=== PATIENT | male | born 1950 | race Caucasian/White ===

== ENCOUNTER 2020-09-27 12:00 | Outpatient (CLI) | payer MEDICARE, OTHER, SELFPAY ==
[2020-09-27 12:19] LABS: Basophils Percent Auto 0.6 % (0.2-1.2); Eosinophils Absolute Auto 0.2 K/mm3 (0-0.3); Eosinophils Percent Auto 3.1 % (0-4.4); Hematocrit 41.9 % (42.0-52.0); Hemoglobin 14.6 g/dL (14.0-18.0); Immature Granulocyte Absolute 0.01 K/mm3 (0.00-0.031); Immature Granulocyte Percent A 0.1 % (0-0.5); Lymphocytes Absolute Auto 2.06 K/mm3 (0.9-3.2); Lymphocytes Percent Auto 28.7 % (18.3-44.2); Mean Corpuscular HGB Conc 34.8 g/dl (32-36); Mean Corpuscular Hemoglobin 29.2 pg (26-34); Mean Corpuscular Volume 83.8 fl (80-100); Mean Platelet Volume 9.1 fl (7.4-10.4); Monocytes Absolute Auto 0.9 K/mm3 (0.1-0.6); Monocytes Percent Auto 12.2 % (2.6-8.5); Neutrophils Percent Auto 55.3 % (45.5-73.1); Platelet Count Result 218 k/mm3 (150-375); Red Cell Distribution Width 12.9 % (11.5-14.5); White Blood Count 7.2 K/mm3 (4.5-10.0)
[2020-09-27 13:08] LABS: Alanine Aminotransferase 28 U/L (4-50); Albumin Level 4.2 g/dL (3.5-5.1); Alkaline Phosphatase 97 U/L (38-126); Anion Gap 6 mmol/L (8-16); Aspartate Amino Transferase 31 U/L (17-59); Bilirubin,Total 0.6 mg/dL (0.2-1.3); Blood Urea Nitrogen 26 mg/dL (9-20); Calcium 9.5 mg/dL (8.4-10.2); Carbon Dioxide 26 mmol/L (22-30); Chloride 106 mmol/L (98-107); Estimated Glomerular Filt Rate 50; Glucose 185 mg/dL (75-110); Potassium 4.4 mmol/L (3.4-5.0); Sodium 138 mmol/L (137-145)
[2020-09-27 13:10] LABS: Immunoglobulin A 138 mg/dL (70-400); Immunoglobulin G 1238 mg/dL (700-1600); Immunoglobulin M 55 mg/dL (40-230)
[2020-09-29 12:57] LABS: Kappa\\Lambda Light Chains 1.24 (0.26-1.65); Lambda Light Chain 27.2 mg/L (5.7-26.3)
[2020-10-01 05:54] LABS: Albumin 4.1 g/dL (3.8-4.8); Alpha 1 Globulin 0.3 g/dL (0.2-0.3); Alpha 2 Globulin 0.8 g/dL (0.5-0.9); Beta 1 Globulin 0.5 g/dL (0.4-0.6); Gamma Globulin 1.1 g/dL (0.8-1.7); Protein, Total 7.2 g/dL (6.1-8.1)
[2020-10-03 11:09] LABS: Serotonin 1802 ng/mL (56-244)
== END 2020-09-27 12:01 | disposition home or self-care (01) ==
LOC: ANHLAB 12:03
PROVIDERS: PCP Nurse Practitioner Adult Health; Visit Provider Internal Medicine Hematology & Oncology
DX: C7B.00 Secondary carcinoid tumors, unspecified site (principal)
CPT/HCPCS: 36415; 80053; 82784; 83883; 84155; 84165; 84260; 85025

== ENCOUNTER 2020-09-30 13:15 | Outpatient (CLI) | payer MEDICARE, OTHER, SELFPAY ==
--- NOTE | ~2020-09-30 | CT_ITS ---
EXAMINATION: CT abdomen pelvis w con DATE: 09/30/2020 13:41 INDICATION: Metastatic carcinoid tumor TECHNIQUE: Computed tomography (CT) of the abdomen and pelvis was performed with 100 mL Omnipaque-350 intravenous contrast. Automated exposure control and iterative reconstruction technique were employe d. The dose-length product was 1320.38 mGy-cm. COMPARISON: None FINDINGS: A few small calcified nodules in the right middle lobe and calcified mediastinal lymph node consisten t with old granulomatous disease. Heart size is normal. No pericardial or pleural effusion. Atheroscl erotic coronary artery calcifications. A few calcified gallstones in the dependent aspect of the norm al gallbladder with no wall thickening or pericholecystic inflammatory change to suggest acute cholec ystitis. Liver is normal. No intra or extra hepatic biliary ductal dilation. Pancreas, spleen and rig ht adrenal gland are normal. 2.1 x 1.1 cm macroscopic fat attenuation left adrenal myelolipoma. Mild bilateral renal atrophy with 7 mm low-attenuation likely cyst at the lower pole of the left kidney. H eterogeneously enhancing mass with lobular margins and multiple internal calcifications within the me sentery of the right abdomen which measures 9.0 x 5.0 x 6.9 cm on coronal and sagittal images. There are 3 additional mildly enlarged ovoid nodules along the more proximal mesentery which from caudal to cranial on axial images measure 16 x 11 mm, 16 x 12 mm and 16 x 13 mm. Each of these along with the large mass are consistent with given history of metastatic carcinoid tumor. There is suggestion of fo daniel enhancement along a short segment of small bowel in the right abdomen potentially representing th e primary carcinoid. This is located on series 3, image 93 and Remainder of the bowels including appe ndix are normal. No obstruction. Bladder is normal. No free intraperitoneal gas or fluid. Moderate-si zed fat-containing left inguinal hernia. Chronic appearing mild anterior wedging of a few mid to lowe r thoracic vertebrae. Moderate thoracolumbar spondylosis with bridging osteophytes at multiple levels consistent with diffuse idiopathic skeletal hyperostosis (DISH). No suspicious lytic or blastic bone lesions. IMPRESSION: 1. 9.0 x 5.0 x 6.9 cm enhancing mesenteric mass with 3 nearby smaller mesenteric nodules, all consist ent with given history of metastatic carcinoid tumor. 2. Possible site of a small primary enhancing carcinoid tumor identified along a segment of small bow el in the right abdomen still a significant distance from the terminal ileum. 3. Cholelithiasis. Hindfoot. Moderate-sized left inguinal hernia. Reviewed, dictated and finalized at location A. SUPERVISOR IMPRESSION: 1. 9.0 x 5.0 x 6.9 cm enhancing mesenteric mass with 3 nearby smaller mesenteri c nodules, all consistent with given history of metastatic carcinoid tumor. 2. Possible site of a small primary enhancing carcinoid tumor identified along a segment of small bowel in the right abdomen still a significant distance from the terminal ileum. 3. Cholelithiasis. Hindfoot. Moderate-sized left inguinal hernia.
== END 2020-09-30 13:16 | disposition home or self-care (01) ==
PROVIDERS: PCP Nurse Practitioner Adult Health; Visit Provider Internal Medicine Hematology & Oncology
DX: C7B.00 Secondary carcinoid tumors, unspecified site (principal); K80.20 Calculus of gallbladder without cholecystitis without obstruction
CPT/HCPCS: 74177; Q9967

== ENCOUNTER → 2020-10-15 00:45 | Outpatient (CLI) | payer MEDICARE, OTHER, SELFPAY ==
[2020-10-15 20:38] LABS: SARS-CoV-2 RNA PCR Negative
== END ==
PROVIDERS: PCP Nurse Practitioner Adult Health; Visit Provider Internal Medicine Hematology & Oncology
DX: Z01.812 Encounter for preprocedural laboratory examination (principal); Z20.822 Contact with and (suspected) exposure to COVID-19
CPT/HCPCS: C9803; U0003; U0005

== ENCOUNTER 2020-10-18 09:00 | Outpatient (CLI) | payer MEDICARE, OTHER, SELFPAY ==
[2020-10-13 16:44] VITALS: BMI 33.1
[2020-10-18] VITALS (7 sets, daily range): BP systolic 154–168; BP diastolic 80–97; PULSE 55–68; RESP 16–19; O2SAT 98–100
--- NOTE | ~2020-10-18 | CT_ITS ---
EXAMINATION: CT bx abdomen percutaneous DATE: 10/18/2020 11:39 INDICATION: Mesenteric mass. TECHNIQUE: The procedure including the risks, benefits, and alternatives was discussed with the patie nt. Risks discussed included bleeding and infection. The patient verbalized understanding of the risk s and agreed to proceed. The skin overlying the right abdomen was prepped and draped in usual steril e fashion. Anesthetic was administered with 1% lidocaine subcutaneously. A 16 gauge outer needle wa s advanced under CT guidance into the mesenteric mass. An 18 gauge core biopsy needle was then used t o obtain 3 core biopsy specimens. The mA was adjusted according to patient size. Iterative reconstruc tion technique was employed. The dose-length product was 136.33 mGy-cm. The needle was removed and th e entry site was cleaned and dressed. There were no immediate complications. FINDINGS: CT images demonstrate the outer needle tip in an 8.2 cm mesenteric mass. IMPRESSION: 1. CT-guided core needle biopsy of a mesenteric mass. Reviewed, dictated and finalized at location A. EILLANCE ANALYST
[2020-10-18 09:57] LABS: INR 0.9; Prothrombin Time 13.1 Seconds (11.1-14.7)
[2020-10-18 13:11] LABS: Glucose Point of Care 93 (65-105)
--- NOTE | 2020-10-18 13:48 | SUR.PHASEII ---
[address] arreaga on pt condition. pt is stable, vss, on roomair, no pain. ok to be discharged per dr arreaga
== END 2020-10-18 09:01 | disposition home or self-care (01) ==
PROVIDERS: Radiology Diagnostic Radiology; PCP Nurse Practitioner Adult Health; Visit Provider Internal Medicine Hematology & Oncology
DX: C7B.00 Secondary carcinoid tumors, unspecified site (principal); Z51.81 Encounter for therapeutic drug level monitoring; Z79.899 Other long term (current) drug therapy
CPT/HCPCS: 36415; 49180; 82948; 85610; 88305; 88342

== ENCOUNTER 2021-04-10 09:00 | Outpatient (CLI) | payer MEDICARE, OTHER, SELFPAY ==
--- NOTE | ~2021-04-10 | CT_ITS ---
EXAMINATION: CT abdomen pelvis w con INDICATION: Metastatic carcinoid tumor TECHNIQUE: Computed tomographic images of the abdomen and pelvis were obtained after the administrati on of 100 cc of Omnipaque 350 intravenous contrast. The dose-length product (DLP) was 1603.22 mGy-cm. Automated exposure control and iterative reconstruction technique were employed. COMPARISON: 09/30/2020 FINDINGS: Minimal dependent atelectasis is present in the lung bases. The heart size is normal. The l iver, spleen, pancreas, and right adrenal gland are normal. There is a stable myelolipoma of the left adrenal gland. Stones are present in the gallbladder which is mildly distended. There is mild atroph y of the kidneys. A 7 mm hypoattenuating lesion in the left kidney lower pole is too small to charact erize but likely represents a cyst. A 6.8 x 6.7 cm heterogeneous mass of the mesentery has decreased in size, previously measuring 9.0 x 6.9 cm. The three smaller adjacent masses of the mesentery are st able in size. There appears to be a 1.8 x 1.7 cm mass in the second portion of the duodenum on image 73. The mass appears to insinuate along the wall of the duodenum and cause narrowing of the distal co mmon bile duct. There is mild enlargement of the common bile duct which measures up to 10 mm. The rayray endix is normal. There are no dilated loops of bowel. No free intraperitoneal gas is identified. Ther e is moderate lumbar spondylosis. IMPRESSION: 1. Mesenteric mass with slight decrease in size and three stable adjacent masses, consistent with met astatic carcinoid. 2. Small mass in the second portion the duodenum which appears to involve the distal common bile duct resulting in mild enlargement of the common bile duct and likely secondary enlargement of the gallbl adder. Upper endoscopy is recommended. Reviewed, dictated and finalized at location A. IMPRESSION: 1. Mesenteric mass with slight decrease in size and three stable adjacent amado s, consistent with metastatic carcinoid. 2. Small mass in the second portion the duodenum which appears to involve the d istal common bile duct resulting in mild enlargement of the common bile duct an d likely secondary enlargement of the gallbladder. Upper endoscopy is recommend ed.
[2021-04-10 09:27] LABS: Estimated Glomerular Filt Rate 37
== END 2021-04-10 09:01 | disposition home or self-care (01) ==
PROVIDERS: PCP Nurse Practitioner Adult Health; Visit Provider Internal Medicine Hematology & Oncology
DX: C78.00 Secondary malignant neoplasm of unspecified lung (principal); R19.09 Other intra-abdominal and pelvic swelling, mass and lump
CPT/HCPCS: 74177; Q9967

== ENCOUNTER 2021-04-19 06:49 | Day surgery (SDC) | payer MEDICARE, OTHER, SELFPAY ==
[2021-04-13 11:12] VITALS: BMI 31.4
[2021-04-19 07:52] VITALS: BP 151/80; PULSE 59; RESP 16; TEMP 36.3; O2SAT 99; BMI 32.1
[2021-04-19] MEDS: LACTATED RINGERS 1,000 ML 150 ML IV CONT (08:05)
[2021-04-19 08:15] LABS: Glucose Point of Care 144 mg/dl (65-105)
--- NOTE | 2021-04-19 08:18 | WPDANESEPPF ---
Anes - Initial Pre Proc Eval Procedure: Operation Date: 04/19/21 08:45 Proposed Procedures p Esophagogastroduodenoscopy - Vin Burnett MD Date/Time: 04/19/21 08:18 Surgeon: Vin Burnett MD Pre Op Diagnosis: duodenal mass Patient Data Age: 70 Gender: M Height: 1.83 m Weight: 107.3 kg Last Vital Signs Temp 36.3 C L 04/19/21 07:52 Pulse 59 L 04/19/21 07:52 Resp 16 04/19/21 07:52 BP 151/80 H 04/19/21 07:52 Pulse Ox 99 04/19/21 07:52 Allergies Allergy/AdvReac Type Severity Reaction Status Date / Time No Known Allergies Allergy Mild Verified 04/19/21 07:50 Home Medications Medication Instructions Recorded Confirmed Type atorvastatin 10 mg PO HS 10/13/20 04/13/21 History cholecalciferol (vitamin D3) 50 mcg PO DAILY 10/13/20 04/13/21 History [Vitamin D3] coenzyme Q10 [CoQ-10] 30 mg PO DAILY 10/13/20 04/13/21 History cranberry 500 mg PO BID 10/13/20 04/13/21 History diltiazem HCl 240 mg PO DAILY 10/13/20 04/13/21 History glimepiride 2 mg PO DAILY 10/13/20 04/13/21 History wmtxx-rdphcg-cbi-W2-D-MQ-hb287 1 tablet PO DAILY 10/13/20 04/13/21 History insulin degludec [Tresiba 16 unit SUBCUT DAILY 10/13/20 04/13/21 History FlexTouch U-100] latanoprost 1 drp EACH EYE DAILY 10/13/20 04/13/21 History liraglutide [Victoza 2-Chance] 1.2 mg SUBCUT DAILY 10/13/20 04/13/21 History losartan 100 mg PO DAILY 10/13/20 04/13/21 History omega 4-ebi-umk-fish oil [Fish Oil] 1 cap PO DAILY 10/13/20 04/13/21 History vitamin I31-caehy acid 1 tablet PO DAILY 10/13/20 04/13/21 History dapagliflozin [Farxiga] 10 mg PO DAILY 02/10/21 04/13/21 History Laboratory Tests 04/19/21 08:10 POC Capillary Glucose 144 mg/dl H mg/dl (65-105) Patient hx anesthesia problems: none Family hx anesthesia problems: none PMFSH Past Medical History Medical History Diabetes Hypercholesterolemia Obesity Family History Family History Other Diabetes mellitus Family history of cardiovascular disease Hypertension Social History Social History Smoking status: Never smoker Alcohol intake: never Substance use: never Living arrangements: with family Spiritual care concerns: No Anes - Eval Final PreProcedure Day of Procedure 04/19/21 08:18 Patient weight: obese Heart: regular rate and rhythm Lungs: clear to auscultation Airway: Mallampati scale class II Neurological: alert and oriented Last oral intake: >/= 8 hours ASA classification: III Emergent: no Anesthetic plan: proceed Anesthesia type and monitoring: general GIVS and standard monitoring Informed Consent: The patient's anesthetic plan and its attendant risks and benefits were discussed with the patient/family/POA. Questions were solicited and answers provided to the satisfaction of the patient/family/POA.
--- NOTE | 2021-04-19 08:43 | WPDGICN ---
Assessment and Plan Assessment and plan (1) Neuroendocrine cancer: Code(s): C7A.8 - Other malignant neuroendocrine tumors Status: Acute Assessment and Plan: Patient has a neuroendocrine tumor currently followed by Dr. Marr, and Carline Lu NP. patient had a CT scan suggesting possible duodenal involvement. An EGD and biopsy is suggested at this time. Further recommendations will be given after endoscopy. (2) Abnormal CT scan: Code(s): R93.89 - Abnormal findings on diagnostic imaging of other specified body structures Status: Acute GI Consult Note Consult date/time: 04/19/21 08:43 HPI: Manuel Mata is a 70 year old male Presents for EGD because of abnormal CT scan. Patient reports that 1 year ago had abdominal pain for this reason a CT scan was performed he ultimately was found to have a neuroendocrine tumor surrounding the small intestine. This felt to be a carcinoid type tumor. Patient eventually seen by Dr. Marr over the last 2 months. He is also being evaluated for potential surgery but this apparently is limited because of proximity to major blood vessels. Follow-up CT scan recently performed raise the question of a duodenal lesion the GB is requested for biopsy and further investigation. Patient otherwise states he feels good with no specific symptoms his diet appetite bowel movements all appeared good. He denies abdominal pain. Patient reports screening colonoscopy in August was unremarkable. Performed elsewhere. Review of Systems Review of Systems: All systems reviewed & are unremarkable except as noted in HPI and below PMFSH Past Medical History Medical History Diabetes Hypercholesterolemia Obesity Family History Family History Other Diabetes mellitus Family history of cardiovascular disease Hypertension Social History Social History Smoking status: Never smoker Alcohol intake: never Substance use: never Living arrangements: with family Spiritual care concerns: No Meds Home Medications and Allergies Home Medications Medication Instructions Recorded Confirmed Type atorvastatin 10 mg PO HS 10/13/20 04/13/21 History cholecalciferol (vitamin D3) 50 mcg PO DAILY 10/13/20 04/13/21 History [Vitamin D3] coenzyme Q10 [CoQ-10] 30 mg PO DAILY 10/13/20 04/13/21 History cranberry 500 mg PO BID 10/13/20 04/13/21 History diltiazem HCl 240 mg PO DAILY 10/13/20 04/13/21 History glimepiride 2 mg PO DAILY 10/13/20 04/13/21 History sorwt-ueuxfc-rpw-S2-G-JT-hb287 1 tablet PO DAILY 10/13/20 04/13/21 History insulin degludec [Tresiba 16 unit SUBCUT DAILY 10/13/20 04/13/21 History FlexTouch U-100] latanoprost 1 drp EACH EYE DAILY 10/13/20 04/13/21 History liraglutide [Victoza 2-Chance] 1.2 mg SUBCUT DAILY 10/13/20 04/13/21 History losartan 100 mg PO DAILY 10/13/20 04/13/21 History omega 5-djv-zyh-fish oil [Fish Oil] 1 cap PO DAILY 10/13/20 04/13/21 History vitamin O27-gcthq acid 1 tablet PO DAILY 10/13/20 04/13/21 History dapagliflozin [Farxiga] 10 mg PO DAILY 02/10/21 04/13/21 History Allergies Allergy/AdvReac Type Severity Reaction Status Date / Time No Known Allergies Allergy Mild Verified 04/19/21 07:50 Vital Signs Vital Signs - 24 hr 04/19/21 07:52 Temperature 97.3 F L Pulse Rate 59 L Respiratory Rate 16 Blood Pressure 151/80 H Pulse Oximetry 99 Exam Narrative: physical exam reveals patient to be alert. Vital signs stable. HEENT exam is unremarkable. Patient is anicteric. Lungs are clear to auscultation and percussion. Heart is without murmur or extra sounds. Abdominal exam bowel sounds are present soft nontender with no organomegaly. Digital external rectal exam unremarkable today.
[2021-04-19 09:10] VITALS: BP 141/76; PULSE 56; RESP 21; O2SAT 99
[2021-04-19 09:20] VITALS: BP 136/84; PULSE 54; RESP 21; O2SAT 97
[2021-04-19 09:27] LABS: Glucose Point of Care 139 mg/dl (65-105)
[2021-04-19 09:30] VITALS: BP 151/89; PULSE 57; RESP 21; O2SAT 97
== END 2021-04-19 09:40 | disposition home or self-care (01) ==
PROVIDERS: PCP Nurse Practitioner Adult Health; Visit Provider Internal Medicine Gastroenterology
PROC: 0DJ08ZZ Inspection of Upper Intestinal Tract, Via Natural or Artificial Opening Endoscopic (ICD-10-PCS; CPT 43235; principal; 2021-04-19 08:45)
DX: K57.10 Diverticulosis of small intestine without perforation or abscess without bleeding (principal); C7A.8 Other malignant neuroendocrine tumors; E11.9 Type 2 diabetes mellitus without complications; E78.00 Pure hypercholesterolemia, unspecified; E66.9 Obesity, unspecified; Z68.32 Body mass index [BMI] 32.0-32.9, adult; Z79.84 Long term (current) use of oral hypoglycemic drugs; Z79.4 Long term (current) use of insulin
CPT/HCPCS: 43235; 82948; J7120

== ENCOUNTER 2023-09-10 08:19 | Outpatient (CLI) | payer MEDICARE, SELFPAY ==
[2023-09-10 08:48] LABS: Estimated Glomerular Filt Rate 28
== END 2023-09-10 08:20 | disposition home or self-care (01) ==
LOC: ANHIMG 08:24
PROVIDERS: PCP Family Medicine; Visit Provider Internal Medicine Hematology & Oncology
DX: C7B.00 Secondary carcinoid tumors, unspecified site (principal)
CPT/HCPCS: 99199

== ENCOUNTER 2024-01-09 13:32 | Outpatient (CLI) | payer MEDICARE, SELFPAY ==
--- NOTE | ~2024-01-09 | US_ITS ---
EXAMINATION: US renal BI DATE: 01/09/2024 13:52 INDICATION: Stage IIIa chronic kidney disease TECHNIQUE: Multiple ultrasound grayscale images of the kidneys were obtained. COMPARISON: None. FINDINGS: The right kidney measures 10.7 x 5.8 x 5.4 cm. The left kidney measures 4.2 x 5.6 x 5.8 cm. The kidne ys demonstrate normal echogenicity. 9 mm anechoic cyst at the lower pole the left kidney. There is no hydronephrosis in either kidney. No stones identified. The bladder is normal. IMPRESSION: 1. 9 mm cyst at the lower pole the left kidney. Otherwise normal kidneys without hydronephrosis. Reviewed, dictated and finalized at location A. IMPRESSION: 1. 9 mm cyst at the lower pole the left kidney. Otherwise normal kidneys witho ut hydronephrosis.
== END 2024-01-09 13:33 ==
LOC: MICIMG 13:33
PROVIDERS: PCP Internal Medicine Nephrology; Visit Provider Internal Medicine Nephrology
DX: N18.31 Chronic kidney disease, stage 3a (principal); N28.1 Cyst of kidney, acquired
CPT/HCPCS: 76775

== ENCOUNTER 2024-12-31 11:03 | Outpatient (CLI) | payer MEDICARE, SELFPAY ==
[2024-12-31 11:17] LABS: Basophils Percent Auto 0.4 % (0.2-1.2); Eosinophils Absolute Auto 0.1 K/mm3 (0-0.3); Eosinophils Percent Auto 0.9 % (0-4.4); Hematocrit 39.8 % (42.0-52.0); Hemoglobin 13.7 g/dL (14.0-18.0); Immature Granulocyte Absolute 0.01 K/mm3 (0.00-0.031); Immature Granulocyte Percent A 0.2 % (0-0.5); Lymphocytes Absolute Auto 1.64 K/mm3 (0.9-3.2); Lymphocytes Percent Auto 29.7 % (18.3-44.2); Mean Corpuscular HGB Conc 34.4 g/dl (32-36); Mean Corpuscular Hemoglobin 30.5 pg (26-34); Mean Corpuscular Volume 88.6 fl (80-100); Mean Platelet Volume 8.6 fl (7.4-10.4); Monocytes Absolute Auto 0.7 K/mm3 (0.1-0.6); Monocytes Percent Auto 11.8 % (2.6-8.5); Neutrophils Absolute Auto 3.2 K/mm3 (1.3-6.7); Platelet Count Result 158 k/mm3 (150-375); Red Blood Count 4.49 M/mm3 (4.6-6.20); Red Cell Distribution Width 13.2 % (11.5-14.5); White Blood Count 5.5 K/mm3 (4.5-10.0)
[2024-12-31 12:01] LABS: Alanine Aminotransferase 27 U/L (6-50); Albumin Level 4.2 g/dL (3.5-5.1); Alkaline Phosphatase 92 U/L (38-126); Anion Gap 8 mmol/L (4-12); Aspartate Amino Transferase 40 U/L (17-59); Bilirubin,Total 1.1 mg/dL (0.2-1.3); Blood Urea Nitrogen 32 mg/dL (9-20); Calcium 9.2 mg/dL (8.4-10.2); Carbon Dioxide 25 mmol/L (22-30); Chloride 107 mmol/L (98-107); Estimated Glomerular Filt Rate 34; Glucose 165 mg/dL (65-110); Potassium 4.9 mmol/L (3.4-5.0); Sodium 140 mmol/L (137-145)
--- OUTSIDE RECORDS SUMMARY | 2024-12-31 12:36 | XMS_ITS | Encounter Summary ---
Author Organization [facility] Address [address] [place] [phone] Phone Care Team Providers Care Asbestos Remover Name Role Phone Carline Lu NP Primary Care Provider [phone] Reason for Visit * Reason Comments Med Refill Encounter Details Date Type Department Care Team (Late st Contact Info) Description 04/16/2022 Refill [facility] Nephrology and Hypertension [address] [place] [address], [address] [place] [address] Luis Kaminski MD [address] [facility], [address] [place] [address] Social History Tobacco Use Types Packs/Day Years Used Date Smoking Tobacco: Never Smokeless Tobacco: Never Alcohol Use Standard Drinks/Week Comments No 0 (1 standard drink = 0.6 oz pur e alcohol) Sex and Gender Information Value Date Recorded Sex Assigned at Not on file Legal Sex Male 7:21 AM [facility] Gender Identity Not on file Sexual Orientation Not on file documented as of this encounter Plan of Treatment Not on file documented as of this encounter Visit Diagnoses Not on filedocumented in this encounter Care Teams Asbestos Remover Relationship Specialty Start Date End Date Carline Lu NP [facility] [place] [phone] PCP - General Internal Medicine 05/25/19 documented as of this encounter
--- OUTSIDE RECORDS SUMMARY | 2024-12-31 12:36 | XMS_ITS | Encounter Summary ---
Author Organization [facility] Address [address] [place] [address] Care Team Providers Care Golf Ball Trimmer Name Role Phone Rosa Chávez MD Primary Care Provider + Encounter Details Date Type Department Care Team (Late st Contact Info) Description 01/01/2000 Outpatient Historical [facility] Zeus Saha MD [address] [place] [phone] Social History Tobacco Use Types Packs/Day Years Used Date Smoking Tobacco: Never Assessed Sex and Gender Information Value Date Recorded Sex Assigned at Not on file Legal Sex Male 3:07 AM [employer] WORK[employer] CL[employer] Gender Identity Not on file Sexual Orientation Not on file documented as of this encounter Plan of Treatment Upcoming Encounters Date Type Department Care Team (Late st Contact Info) Description 01/11/2025 8:40 AM CDT Appointment [facility] Imaging Services [facility] [address] [place] [address] Ros Sapp PA-C [address] [address] 01/12/2025 9:30 AM CDT Office Visit [facility] Surgical Specialists Zeus Ibrahim [facility] [address] [facility] [address] [place] [address] Ros Sapp PA-C [address] [facility] [address] [place] [address] 01/13/2025 11:15 AM CDT Office Visit [facility] Oncology and Hematology [facility] [address] [facility] [address] [place] [address] Blayne Marr MD [address] [facility] [address] [place] [address] documented as of this encounter Visit Diagnoses Not on filedocumented in this encounter Care Teams Golf Ball Trimmer Relationship Specialty Start Date End Date Rosa Chávez MD [address] [place] [address] [place] [address] PCP - General Family Practice 03/08/23 11/01/24 documented as of this encounter
--- OUTSIDE RECORDS SUMMARY | 2024-12-31 12:36 | XMS_ITS | Continuity of Care Document ---
Author Name [facility] Organization [facility] Care Team Providers Care Power Shovel Operator Helper Name Role Phone [facility] Unavailable Unavailable Problems Combined list of problems from [facility] and [facility] facilities. It does not include entries that were removed or entered in error. Problem Status Onset Date Problem Type Date of Resolution Comments Source Benign hypertension Active Condition [facility] Cataract Active Condition [facility] Diabetes mellitus Active Condition [facility] Hyperlipidemia Active Condition [facility] Medications Combined list of outpatient medications from [facility] and [facility] facilities.Medications provided include 1) outpatient medications from the last 15 months, and 2) patient-reported medications. Medication Details Route Status Patient Instructions Prescription Expires Prescription Number Last Dispense Date Ordering Provider Order Date Order Qty Source BRIMONIDINE TARTRATE 0.15% SOLN,OPH INSTILL 1 DROP IN BOTH EYES TWICE A DAY [facility]PHTHA [facility] CHONDROITIN SULFATE CAP/TAB TAKE 1 CAP/TAB BY MOUTH TWICE A DAY ORAL [facility]IVE [facility] I B 2013 [facility] COENZYME Q10 CAP/TAB TAKE 1 CAP/TAB BY MOUTH ONCE A DAY [facility]AL [facility] I 2013 [facility] FISH OIL 1000MG (500MG DHA/EPA) CAP,ORAL TAKE BY MOUTH THREE TIMES A DAY [facility] K[facility] GLIMEPIRIDE 4MG TAB TAKE ONE TABLET BY MOUTH QAM ORAL ACTIVE [facility] Kavin 2013 [facility] GLUCOSAMINE CAP/TAB TAKE 1 CAP/TAB BY MOUTH ONCE A DAY [facility]AL [facility] Kavin 2013 [facility] INSULIN,DET ZEKE,HUMAN 100 UNIT/ML INJ INJECT 20 UNITS UNDER THE SKIN ONCE A DAY SUBCUT ANEOUS ACTIVE MARIO VALERO 2013 [facility] METFORMIN HCL 1000MG/SOSA GLIPTIN PHOSPHATE 50MG TAB TAKE ONE TABLET BY MOUTH TWICE A DAY ORAL ACTIVE MARIO VALERO 2013 [facility] Immunizations Combined list of available immunizations from the Department of Defense and Veterans Affairs facilities. Immunization Series Date Given Administered By Site Reaction Lot Number CVX Code Drug Ur Coordinator Status Comments Source TDAP 2013 115 complet ed [facility] INFLUENZA, UNSPECIFIED FORMULATION 2012 88 complet ed [facility] Social History Combined list of available smoking, tobacco, and other social history from Department of Defense and Veterans Affairs facilities. Social History Type Response Date Comment Ankur stevenson Tobacco smoking status NHIS LIFETIME NON-USER OF TOBACCO 05/12/2014 [facility]
--- OUTSIDE RECORDS SUMMARY | 2024-12-31 12:36 | XMS_ITS | Clinical Summary ---
Author Organization [facility] Address [address] [place] [address] Phone Care Team Providers Care Medicine Worker Name Role Phone Unavailable Primary Care Provider Unavailabl e Allergies No known active allergies Medications fish oil-omega-3 fatty acids 340-1,000 mg Oral Cap Take 1 Cap by mouth daily. Active pen needle, diabetic 31 gauge x 3/16 BD Ultra-Fine Mini Pen Needle 31 gauge x 3/16 Active coenzyme Q10 100 mg capsule CoQ-10 100mg 1 daily Active diltiaZEM (CARDIZEM CD) 240 mg Controlled Delivery 24 hour capsule Take 240 mg by mouth daily. 9 Active latanoprost (XALATAN) 0.005 % solution Administer 1 Drop in both eyes daily at bedtime. 8 Active atorvastatin (LIPITOR) 10 mg tablet Take 10 mg by mouth daily at bedtime. 8 Active insulin degludec (U-200) 200 unit/mL (3 mL) subcutaneous pen Inject 26 Units by subcutaneous injection daily at bedtime. Active losartan (COZAAR) 100 mg tablet Take 10 mg by mouth daily. 8 Active omega-3 acid ethyl esters (OMACOR,LOVAZA) 1 gram Capsule Take by mouth. 8 Active glucosamine/frankie priscilla jorge A/C/Mn (GLUCOSAMINE-CHO NDROIT-VIT C-MN ORAL) Take by mouth daily. 8 Active lancets 33 gauge OneTouch Delica Lancets 33 gauge TEST 2 OR 3 TIMES A DAY Active blood sugar diagnostic strips OneTouch Verio test strips TEST 2 OR 3 TIMES A DAY Active dapagliflozin 10 mg tablet Take 10 mg by mouth daily. Active OTHER Take 650 mg by mouth daily. Cranberry OTC Active calcium carbonate 250 mg-vitamin D3 3.125 mcg (125 unit) tablet Take 2 Tablets by mouth 2 times daily with meals. Active oxyCODONE (ROXICODONE) 5 mg tabletIndication s:Blood typing encounter Take 1 Tablet (5 mg) by mouth every 6 hours as needed for Pain. Max Daily Amount: 20 mg 10 Tablet 03/19/2023 1:16 PM CDT 3 Active OCTREOTIDE ACETATE INJECTION by Injection route every 30 days. 20 mg vial ONCE A MONTH Active Ozempic 0.25 mg or 0.5 mg (2 mg/3 mL) Pen Injector INJECT 0.25MG UNDER THE SKIN ONCE WEEKLY WITH A MEAL X4 WEEKS THEN INCREASE TO 0.5MG ONCE WEEKLY 4 Active Active Problems Problem Noted Date Diagnosed Date Type 2 diabetes mellitus, wi th long-term current use of insulin 03/15/2023 Benign hypertension 03/15/2023 CKD (chronic kidney disease) 03/15/2023 Other immunodeficiencies wit h predominantly antibody defects 08/16/2020 Metastatic carcinoid tumor 08/16/2020 Monoclonal (M) protein disease, multiple 'M' pro tein 08/31/2019 Broken wrist Overview (08/31/2019): Left Arm Encounters Date Type Department Care Team Description 11/03/2024 External Device Data STL ABSTRACTION Provider, Abstract 11/02/2024 11:15 AM VARNISHER Office Visit [facility] Oncology and Hematology [facility] [address] [place] [address] Blayne Marr MD Metastatic carcinoid tumor (CMS/HCC) (Primary Dx) 10/26/2024 Abstract [facility] Oncology and Hematology [facility] [address] [place] [address] Blayne Marr MD 10/26/2024 Orders Only [facility] Oncology and Hematology [facility] [address] [place] [phone] Blayne Marr MD 10/26/2024 Abstract [facility] Oncology and Hematology [facility] [address] [place] [address] Blayne Marr MD 10/06/2024 External Device Data STL ABSTRACTION Provider, Abstract from Last 3 Months Family History Medical History Relation Name Comments Stroke Brother 1 x2 Diabetes Brother 3 Diabetes Brother 4 Drug Abuse Brother 5 Endometriosis Daughter DAVID/BSO at 30 Other Daughter partial colecto my Blood Clots Father Diabetes Father Heart Disease Mother Heart Surgery Mother triple bypass Kidney Disease Mother nephrectomy Other Mother abdominal mass Cervical Cancer Sister DAVID/BSO Relation Name Status Comments Brother 1 Alive Brother 2 Alive Brother 3 Brother 4 Brother 5 Daughter Alive Father Grandson x3 Alive Maternal Aunt x3 Maternal Cousin many Alive Maternal Grandfather Maternal Grandmother Maternal Uncle x5 Mother Niece/Nephew many Alive Paternal Grandfather Paternal Grandmother Paternal Uncle Sister Alive Son Alive Social History Tobacco Use Types Packs/Day Years Used Date Smoking Tobacco: Never Smokeless Tobacco: Never Tobacco Cessation:Counseling Given: Not Answered Alcohol Use Standard Drinks/Week Comments Never 0 (1 standard drink = 0.6 oz pur e alcohol) Feeling Safe Answer Date Recorded Are you in a relationship wi th someone who hurts you emotionally and/or physically? No 03/15/2023 Food Insecurity Answer Date Recorded Social/Environmental Concerns No concerns Transportation Needs Answer Date Record ed Social/Environmental Concerns No concerns Housing Stability Answer Date Recorded Social/Environmental Concerns No concerns Utility Needs Answer Date Recorded Social/Environmental Concerns No concerns Sex and Gender Information Value Date Recorded Sex Assigned at Not on file Legal Sex Male 3:07 AM VARNISHER Gender Identity Not on file Sexual Orientation Not on file Last Filed Vital Signs Vital Sign Reading Time Taken Comments Blood Pressure 145/85 11/02/2024 11:20 AM VARNISHER Pulse 66 11/02/2024 11:18 AM VARNISHER Temperature 36.3 C (97.3 F) 11/02/2024 11:18 AM VARNISHER Respiratory Rate 15 11/02/2024 11:18 AM VARNISHER Oxygen Saturation 97% 11/02/2024 11:18 AM VARNISHER Inhaled Oxygen Concentration - - Weight 99.1 kg (218 lb 6.4 oz) 11/02/2024 11:18 AM VARNISHER Height 182.9 cm (6') 07/09/2024 10:28 AM CDT Body Mass Index 29.62 07/09/2024 10:28 AM CDT Plan of Treatment Upcoming Encounters Date Type Department Care Team (Late st Contact Info) Description 01/11/2025 8:40 AM CDT Appointment [facility] [id number] [place] [phone] Ros Sapp PA-C [address] [place] [address] 01/12/2025 9:30 AM CDT Office Visit [facility] Special[facility] [address] [facility] [address] [place] [address] Ros Sapp PA-C [address] [address] 01/13/2025 11:15 AM CDT Office Visit [facility] Oncology and Hematology - [place] [address] [place] [address] [address] [place] [address] Blayne Marr MD [address] [facility] [address] [place] [address] Health Maintenance Due Date Last Done Comments DIABETES ANNUAL FOOT EXAM 1966 DIABETES MICROALBUMIN ANNUAL SCREEN 1966 LDL CHOLESTEROL ANNUAL 1966 Traditional Medicare (ACO) A nnual Wellness Visit 11/20/1967 ZOSTER VACCINE (1 of 2) 11/20/1967 DTAP/TDAP/TD VACCINES (3 - T d or Tdap) 09/09/2023 09/09/2013, 09/20/2010 RSV VACCINE (60+ or ) (1 - 1-dose 75+ series) 11/20/2023 INFLUENZA VACCINE (#1) 2024 2, 07/25/2020, 06/30/2019, Additional history exists DIABETES HBA1C Q 6 MONTHS 11/24/20242023, 12/26/2023, 11/02/2022, Additional history exists DIABETES ANNUAL RETINAL EXAM 03/30/2025, 12/30/2023, 09/16/2023, Additional history exists COLORECTAL SCREENING Discontinued 09/08/2020, 09/08/2020, 04/16/2016, Additional history exists Colorectal Cancer Screening Discontinued PNEUMOCOCCAL VACCINE 50+ YEARS Completed 0 01/15/2023, 09/07/2014, 07/21/2008 FIT-DNA Q 3 years Discontinued FIT/FOBT Q 1 year Discontinued Flex Sig/CT Colonography Q 5 years Discontinued Medical Devices Implanted Type Area Neurology Technician Device Identifier Shelf Expiration Date Model / Serial / Lot Barrier Seprafilm 5x6in [id number] - [id number] Implanted:Qty : 2 on 03/15/2023 by Ming Ayala MD at [facility] Adhesion Barrier N/A: Abdomen [employer] 03/26/2025 [id number] / / [id number] - [id number] Implanted:Qty : 1 on 06/06/2009 at [facility] [place] Left: Shoulder [employer] 11/07/2013 [id number] / [id number] Description:Rotator Cuff Abdirizak ckanchor Clip Ligating Horizon Med Ti [id number] - [facility] - [id number] Implanted:Qty : 1 on 03/15/2023 by Ming Ayala MD at [facility] N/A: Abdomen TELEFLEX- WECK CLOSURE SYS 10/23/2027 [id number] / / [id number] Clip Ligating Horizon Ti 24 [id number] - [id number] Implanted:Qty : 1 on 03/15/2023 by Ming Ayala MD at [facility] Clip N/A: Abdomen TELEFLEX- WECK CLOSURE SYS 12/24/2027 [id number] / / [id number] Clip Ligating Horizon Lg Ti [id number] - [facility] - [id number] Implanted:Qty : 1 on 03/15/2023 by Ming Ayala MD at [facility] N/A: Abdomen TELEFLEX- WECK CLOSURE SYS 12/05/2027 [id number] / / [id number] Clip Ligating Horizon Lg Ti [id number] - Csc - [id number] Implanted:Qty : 2 on 03/15/2023 by Ming Ayala MD at [facility] N/A: Abdomen TELEFLEX- WECK CLOSURE SYS 07/16/2027 [id number] / / [id number] Clip Ligating Horizon Lg Ti 194761 - Csc - [id number] Implanted:Qty : 1 on 03/15/2023 by Ming Ayala MD at [facility] N/A: Abdomen TELEFLEX- WECK CLOSURE SYS 06/18/2026 [id number] / / [id number] Hemostat Surg Snow 2x4in 2081 [id number] Implanted:Qty : 3 on 03/15/2023 by Ming Ayala MD at [facility] N/A: Abdomen [employer] [id number] 10/09/2024 2082 / / [id number] Procedures Procedure Name Priority Date/Time Associated Diagnosis Comments COMPREHENSIVE METABOLIC PANEL Routine 10/09/2024 11:55 AM VARNISHER COMPREHENSIVE METABOLIC PANEL Routine 10/09/2024 11:15 AM VARNISHER COMPREHENSIVE METABOLIC PANEL Routine 10/09/2024 11:15 AM VARNISHER VITAMIN B12 AND FOLATE Routine 8:30 AM VARNISHER Anemia due to vitamin B12 deficiency, unspecified B12 deficiency type SEROTONIN LEVEL Routine 10/09/2024 8:30 AM VARNISHER Metastatic carcinoid tumor (CMS/HCC) CHROMOGRANIN A Routine 10/09/2024 8:30 AM VARNISHER Metastatic carcinoid tumor (CMS/HCC) COLONOSCOPY REPORT 09/08/2020 11 :11 AM VARNISHER from Last 3 Months or Most Recently Relevant to Health Maintenance Results * COMPREHENSIVE METABOLIC PANEL (10/09/2024 11:55 AM VARNISHER) Only the most recent of3 resultswithin the time period is included. Blood Blayne Marr MD CHEMISTRY ORDERABLES Final Resu lt * VITAMIN B12 AND FOLATE (10/09/2024 8:30 AM VARNISHER) VITAMIN B12 593 200 - 1100 pg/mL [facility] FOLATE, SERUM 13.5 ng/mL [facility] Comment: Reference Range Low: <3.4 Borderline: 3.4-5.4 Normal: >5.4 FASTING:YES FASTING: YES Test Performed at: [facility] [address] [place] [address] Gelacio Huerta MD Blood 10/09/2024 8:30 AM VARNISHER 10/09/2024 8:31 AM VARNISHER Blayne Marr MD CHEMISTRY ORDERABLES Final Resu lt [facility] [phone] [facility] [id number] [place] [phone] * (ABNORMAL) CHROMOGRANIN A (10/09/2024 8:30 AM VARNISHER) CHROMOGRANIN A 617(H) ADULTS: <311 ng/mL [facility], Comment: The sample type for this test was serum. Interpretation of patient results may be affected by a variety of conditions such as hypertension, gastritis, prostate cancer, hyperparathyroidism, and most commonly renal disease and use of proton pump inhibitors (PPIs). (Arlyn Alvarez et al. Chromogranin A measurement in metastatic well-differentiated gastroenteropancreatic neuroendocrine carcinoma: screening for false positives and a prospective follow-up study. Int J Biol Markers. 2010;26(2):94-101.) This test was performed using a Liquid Chromatography Mass Spectrometry method. Values obtained from different assay methods cannot be used interchangeably. Chromogranin A levels, regardless of value, should not be interpreted as absolute evidence of the presence or absence of disease. This test was developed and its analytical performance characteristics have been determined by [facility]. It has not been cleared or approved by FDA. This assay has been validated pursuant to the CLIA regulations and is used for clinical purposes. FASTING:YES FASTING: YES Test Performed at: [facility], [address] [place] [phone] Sandrine Chavez MD,PhD,AQUILINO Blood 10/09/2024 8:30 AM VARNISHER 10/09/2024 8:31 AM VARNISHER Blayne Marr MD CHEMISTRY ORDERABLES Final Resu lt Performing Organization Address [facility] Co de Phone Number [facility] [phone] [facility], [address] [place] [address], [place] [address] * SEROTONIN LEVEL (10/09/2024 8:30 AM VARNISHER) [facility] SEROTONIN LEVEL 203 56 - 244 ng/mL [facility], Comment: This test was developed and its analytical performance characteristics have been determined by [facility]. It has not been cleared or approved by FDA. This assay has been validated pursuant to the CLIA regulations and is used for clinical purposes. FASTING:YES FASTING: YES Test Performed at: [facility], [address] [place] [address] Sandrine Chavez MD,PhD,AQUILINO Blood 10/09/2024 8:30 AM VARNISHER 10/09/2024 8:31 AM VARNISHER Blayne Marr MD CHEMISTRY ORDERABLES Final Resu lt [facility] [phone] [facility], [address] [place] [address] * COLONOSCOPY REPORT (09/08/2020 11:11 AM VARNISHER) Narrative Procedure Note Noel Pathak MD - 09/08/2020 11:10 AM CST [facility] Endoscopy Patient Name: Manuel Mata Procedure Date: 09/08/2020 Date of : 1950 Admit Type: Outpatient Attending MD: Noel Pathak MD Procedure: Colonoscopy Indications: Personal history of malignant neoplasm of the GI tract Providers: Noel Pathak MD Referring MD: Carline Lu Medicines: Propofol per Anesthesia Complications: No immediate complications. Procedure: Informed consent was obtained for the procedure, including moderate sedation after risks were discussed. Based on the pre-procedure assessment, including review of the patient's medical history, medications, allergies, and review of systems, the patient was deemed to be an appropriate candidate for sedation. A timeout was performed. Continuous ECG monitoring, pulse oximetry, blood pressure monitoring, and direct observation were performed. The Colonoscope was introduced through the anus and advanced to the cecum, identified by appendiceal orifice and ileocecal valve. The colonoscopy was performed without difficulty. The patient tolerated the procedure well. The quality of the bowel preparation was good. Findings: The perianal and digital rectal examinations were normal. A 8 mm polyp was found in the transverse colon. The polyp was sessile. The polyp was removed with a cold snare. Resection and retrieval were complete. A 5 mm polyp was found in the descending colon. The polyp was sessile. The polyp was removed with a cold snare. Resection and retrieval were complete. The exam was otherwise without abnormality on direct and retroflexion views. Impression: - One 8 mm polyp in the transverse colon, removed with a cold snare. Resected and retrieved. - One 5 mm polyp in the descending colon, removed with a cold snare. Resected and retrieved. - The examination was otherwise normal on direct and retroflexion views. Recommendation: - Discharge patient to home. - Repeat colonoscopy in 5 years for surveillance. Procedure Code(s): --- Professional --- 62669, Colonoscopy, flexible; with removal of tumor(s), polyp(s), or other lesion(s) by snare technique CPT copyright 2018 [employer]. All rights reserved. The codes documented in this report are preliminary and upon him coder review may be revised to meet current compliance requirements. Noel Pathak MD 09/08/2020 11:10:17 AM This report has been signed electronically. Number of Addenda: [id number] [place] [address] Noel Pathak MD GI PROCEDURE ORDERABLES Final Result from Last 3 Months or Most Recently Relevant to Health Maintenance Insurance MEDICARE PART A AND B [facility] SUPP MEDICARE PART A AND B BCBS SUPP RX [facility] [place] [address] Advance Directives For more information, please contact: [phone] Documents on File Type Date Recorded Patient Hair Clipper Power Expl anation Advance Directive Living Will 06/02/2009 Advance Directive POA 06/02/2009 3:18 PM A dvance Directive POA * Full Code (Latest Code Status on File) Date Activated Date Inactivated Comments 03/15/2023 8:51 PM 03/19/2023 3:44 PM * Full Code Date Activated Date Inactivated Comments 03/15/2023 8:53 AM 03/15/2023 8:51 PM * Full Code Date Activated Date Inactivated Comments 09/08/2020 9:57 AM 09/08/2020 1:51 PM * Full Code Date Activated Date Inactivated Comments 06/06/2009 12:40 PM 06/07/2009 1:22 PM * Full Code Date Activated Date Inactivated Comments 06/06/2009 8:32 AM 06/06/2009 12:40 PM
--- OUTSIDE RECORDS SUMMARY | 2024-12-31 12:36 | XMS_ITS | Encounter Summary ---
Author Organization [facility] Address 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 Gender Identity Not on file Sexual Orientation Not on file documented as of this encounter Plan of Treatment Upcoming Encounters Date Type Department Care Team (Late st Contact Info) Description 01/11/2025 8:40 AM CDT Appointment [facility] [address] [place] [address] Ros Sapp PA-C [address] [address] 01/12/2025 9:30 AM CDT Office Visit [facility] [address] [facility] [address] [place] [address] Ros Sapp PA-C [address] [facility] [address] [place] [address] 01/13/2025 11:15 AM CDT Office Visit [facility] Oncology and Hematology - [facility] [address] [facility] [address] [place] [address] Blayne Marr MD [address] [facility] [address] [place] [address] documented as of this encounter Visit Diagnoses Not on filedocumented in this encounter Care Teams Finisher [employer] Relationship Specialty Start Date End Date Rosa Chávez MD [address] [place] [address] [place] [address] PCP - General Family Practice 03/08/23 11/01/24 documented as of this encounter
--- OUTSIDE RECORDS SUMMARY | 2024-12-31 12:36 | XMS_ITS | Clinical Summary ---
Author Organization [facility] Address [address] [place] [address] Phone Care Team Providers Care Program Checker Name Role Phone Carline Lu NP Primary Care Provider [phone] Allergies No known active allergies Medications hydroCHLOROthiaz mercedes (HYDRODIURIL) 25 MG tablet 1 daily 12 11/12/2018 Active omega-3 (FISH OIL) 1000 MG capsule 2qa an d1qp 0 05/14/2018 Active latanoprost (XALATAN) 0.005 % ophthalmic solution as dir 0 04/04/2018 Active atorvastatin (LIPITOR) 10 MG tablet 1daily 0 05/14/2018 Active Linagliptin (TRADJENTA) 5 MG tablet 1 daily 0 04/04/2018 Active losartan (COZAAR) 100 MG tablet 1 daily 0 05/14/2018 Active Coenzyme Q10 (COQ10) 100 MG capsule 1 daily 0 04/04/2018 Active Glucosamine-Jean Claude droit-Vit C-Mn (GLUCOSAMINE-CHO NDROITIN) capsule 1 daily 0 04/04/2018 Active Glucosamine-Jean Claude droit-Vit C-Mn (GLUCOSAMINE-CHO NDROITIN) capsule 1 bid 0 05/14/2018 Active liraglutide (VICTOZA) 18 MG/3ML injection 1weekly 0 11/12/2018 Ac tive Dapagliflozin Propanediol (FARXIGA) 10 MG tablet daily Active glimepiride (AMARYL) 2 MG tablet Take 2 mg by mouth 2 (two) times a day Active insulin degludec (TRESIBA FLEXTOUCH) 200 UNIT/ML injection daily Active dilTIAZem CD (CARDIZEM CD) 240 MG 24 hr capsule TAKE 1 CAPSULE BY MOUTH EVERY DAY 90 capsule 2 09/05/2021 Active Active Problems Problem Noted Date Diagnosed Date Diabetes mellitus 05/25/2019 Gout 05/25/2019 Type 2 diabetes mellitus without complication Chronic kidney disease stage 3A 04/07/2018 Hyperlipidemia 04/07/2018 Obstructive sleep apnea 04/07/2018 Immunizations Immunization Administration Dates Next Due Hepatitis A 01/26/2019 Influenza (IM) Preservative Free 05/24/2010 Influenza Split High Dose Pr eservative Free IM 06/30/2019,06/26/2018,06/25/2017,07/04,06/29/2014 Influenza TIV (IM) 06/29/2013 Influenza, Injectable, Quadrivalent 07/04/2016 Pneumococcal Conjugate 13-Valent 09/07/2014 Pneumococcal Polysaccharide 07/21/2008 Tdap 09/20/2010 Family History Medical History Relation Comments Kidney disease Mother Relation Status Comments Mother Social History Tobacco Use Types Packs/Day Years Used Date Smoking Tobacco: Never Smokeless Tobacco: Never Alcohol Use Standard Drinks/Week Comments No 0 (1 standard drink = 0.6 oz pur e alcohol) Sex and Gender Information Value Date Recorded Sex Assigned at Not on file Legal Sex Male 7:21 AM [facility] Gender Identity Not on file Sexual Orientation Not on file Last Filed Vital Signs Vital Sign Reading Time Taken Comments Blood Pressure 136/80 10/14/2019 10:52 AM VENEER TAPER Pulse 84 10/14/2019 10:52 AM VENEER TAPER Temperature 36.4 C (97.5 F) 10/14/2019 10:52 AM VENEER TAPER Respiratory Rate - - Oxygen Saturation - - Inhaled Oxygen Concentration - - Weight 105 kg (232 lb) 10/14/2019 10:52 AM VENEER TAPER Height 182.9 cm (6') 10/14/2019 10:52 AM VENEER TAPER Body Mass Index 31.46 10/14/2019 10:52 AM VENEER TAPER Plan of Treatment Health Maintenance Due Date Last Done Comments Pneumococcal PPSV23/PCV13 65 + Years / Low and Medium Risk (3 of 3 - PCV20 or PCV21) 09/07/2019 09/07/2014, 2007 Influenza Vaccine (Season Ended) 2025 06/29/20 13, 05/24/2010 Insurance MEDICARE [employer] [facility] [place]AMIL BADILL[place] [id number] Care Teams Program Checker Relationship Specialty Start Date End Date Carline Lu NP [facility] [place] [address] PCP - General Internal Medicine 05/25/19
--- OUTSIDE RECORDS SUMMARY | 2024-12-31 12:36 | XMS_ITS | Encounter Summary ---
Author Organization [facility] Address 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 Gender Identity Not on file Sexual Orientation Not on file documented as of this encounter Plan of Treatment Upcoming Encounters Date Type Department Care Team (Late st Contact Info) Description 01/11/2025 8:40 AM CDT Appointment [facility] [address] [place] [address] Ros Sapp PA-C [address] [address] 01/12/2025 9:30 AM CDT Office Visit [facility] Zeus Ibrahim [facility] [address] [facility] [address] [place] [address] Ros Sapp PA-C [address] [facility] [address] [place] [address] 01/13/2025 11:15 AM CDT Office Visit [facility] Oncology and Hematology [facility] [address] [facility] [address] [place] [address] Blayne Marr MD [address] [facility] [address] [place] [address] documented as of this encounter Visit Diagnoses Not on filedocumented in this encounter Care Teams Assistant Infant Toddler Teacher Relationship Specialty Start Date End Date Rosa Chávez MD [address] [place] [address] [place] [phone] PCP - General Family Practice 03/08/23 11/01/24 documented as of this encounter
--- OUTSIDE RECORDS SUMMARY | 2024-12-31 12:36 | XMS_ITS | Encounter Summary ---
Author Organization [facility] Address 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 [address] [place] [address] 01/13/2025 11:15 AM CDT Office Visit [facility] Oncology and Hematology - [place] [address] [facility] 200 [place] [address] Blayne Marr MD [address] [facility] [address] [place] [address] documented as of this encounter Visit Diagnoses Not on filedocumented in this encounter Care Teams Hot Stick Man Relationship Specialty Start Date End Date Rosa Chávez MD [address] [place] [address] [place] [phone] PCP - General Family Practice 03/08/23 11/01/24 documented as of this encounter
--- OUTSIDE RECORDS SUMMARY | 2024-12-31 12:36 | XMS_ITS | Encounter Summary ---
Author Organization [facility] Address [address] [place] [address] Phone Care Team Providers Care Welder Journeyman Name Role Phone Carline Lu NP Primary Care Provider [phone] Reason for Visit * Reason Comments Med Refill Encounter Details Date Type Department Care Team (Late st Contact Info) Description 07/30/2022 Refill [facility]pert[facility] [address] [place] [address], [address] [place] [address] Luis Kaminski MD [address] [facility], [address] [place] [address] Social History Tobacco Use Types Packs/Day Years Used Date Smoking Tobacco: Never Smokeless Tobacco: Never Alcohol Use Standard Drinks/Week Comments No 0 (1 standard drink = 0.6 oz pur e alcohol) Sex and Gender Information Value Date Recorded Sex Assigned at Not on file Legal Sex Male 7:21 AM MST Gender Identity Not on file Sexual Orientation Not on file documented as of this encounter Miscellaneous Notes * Telephone Encounter - Luis Kaminski MD - 07/30/2022 9:48 PM CST I haven't seen for 2 years. Call pcp documented in this encounter Plan of Treatment Not on file documented as of this encounter Visit Diagnoses Not on filedocumented in this encounter Care Teams Welder Journeyman Relationship Specialty Start Date End Date Carline Lu NP [address] [place] [address] [place] [phone] PCP - General Internal Medicine 05/25/19 documented as of this encounter
--- OUTSIDE RECORDS SUMMARY | 2024-12-31 12:36 | XMS_ITS | Encounter Summary ---
Author Organization [facility] Address 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 Gender Identity Not on file Sexual Orientation Not on file documented as of this encounter Plan of Treatment Upcoming Encounters Date Type Department Care Team (Late st Contact Info) Description 01/11/2025 8:40 AM CDT Appointment [facility] Imaging Services [address] [address] Ros Sapp PA-C [id number] [place] [address] 01/12/2025 9:30 AM CDT Office Visit [facility] [address] [place] [address] [place] [address] Ros Sapp PA-C [address] [facility] [address] [place] [address] 01/13/2025 11:15 AM CDT Office Visit [facility] Oncology and Hematology - [place] [address] [facility] [address] [place] [address] Blayne Marr MD [address] [facility] [address] [place] [address] documented as of this encounter Visit Diagnoses Not on filedocumented in this encounter Care Teams Tobacco Sizer Relationship Specialty Start Date End Date Rosa Chávez MD [address] [place] [address] [place] [address] PCP - General Family Practice 03/08/23 11/01/24 documented as of this encounter
--- OUTSIDE RECORDS SUMMARY | 2024-12-31 12:36 | XMS_ITS ---
Author Organization [facility] Address [address] [place] [address] Care Team Providers Care Airport Manager Name Role Phone Nicole Palacios Primary Care Provider Migration, Provider Unavailable Unavailable REASON FOR VISIT [facility] Conversion Encounter Medications Medication SIG (Take, Route, [...] Unknown Encounters Encounter [facility] Date [facility] [address] [place] [address] 07/25/2024 Provider Migration Type 2 diabetes mellitus [...] * MESSI WALL[birth year]EDOB:[birth year] (74 yo M)Acc No.[id number]:07/25/2024 Patient: MESSI MARTINEZ Provider: Sonali Valentine :1950 A ge:73 Y S ex:Male Date:07/25/2024 Address:[facility] [address] Pcp:Nicole Palacios Subjective: * Chief Complaints: [...] Electronic signature of Prov ider Migration on 12/31/2024 at 12:36 PM CDT Sign off status: Pending * Provider: Sonali Valentine Date: 09/24/2023 Generated for Lucinda cope/Isabella/Essenceitting on: 0 12/31/2024 12:36 PM CDT
--- OUTSIDE RECORDS SUMMARY | 2024-12-31 12:37 | XMS_ITS | CONTINUITY OF CARE DOCUMENT ---
Author Name gera boss Address Unknown Organization [facility] Address [address] [place] [address] [address] [place] [address] Phone [phone] Care Team Providers Care Vegetable Packer Name Role Phone DAGO LEYVA, LAVELLE Ibrahim Unavailable INSURANCE PROVIDERS Payer name Policy type / Coverage type [facility] alliance party ID [id number] OPEN ACCESS/PPO Other [id number]
--- OUTSIDE RECORDS SUMMARY | 2024-12-31 12:37 | XMS_ITS | Data Portability ---
Author Organization [place] [facility], Main Office Address [address] [place] [address] Assessment Encounter Date Assessment Date Assessment LastModified by Organization Details LastModified Time 07/22/2023 07/22/[address] Rhonda appiah Not available 07/22/2023 11:18:20 Plan of Treatment Reminders Order Date Submit Date Provider Last Modified By Organization Details Last Modified Time Details Appointments None recorded. Lab microalbumi n/creatinin e, mass ratio, urine 2022 023 [facility], [address], [place], [address], 3 10:39:17 HbA1c (hemoglobin A1c), blood 2022 023 [facility], [address], [place], [address], 3 10:39:19 CMP, serum or plasma 2022 023 [facility], [address], [place], [address], 3 10:39:16 TSH + free T4, serum 2022 023 [facility], [address], [place], [address], 3 10:39:18 lipid panel, serum 2022 023 [facility], [address], [place], [address], 3 10:39:15 Referral endocrinolo gy referral 2022 023 [email or web address] Amilcar Ellis MD, [address], [place], [address], 3 12:28:34 Procedures None recorded. Surgeries None recorded. Imaging None recorded. Medication Orders OneTouch Verio test strips 2022 023 [id number], [address], [place], [address], 3 12:30:50 Tresiba FlexTouch U-200 insulin 200 unit/mL (3 mL) subcutaneou s pen 2022 023 [id number], [address], [place], [address], 3 12:30:50 Victoza 3-Chance 0.6 mg/0.1 mL (18 mg/3 mL) subcutaneou s pen injector 2022 023 [email or web address] [id number], [address], [place], [address], 4 11:42:24 Farxiga 10 mg tablet 2022 023 [facility] #[id number], [address], [place], [address], 3 12:30:50 glimepiride 4 mg tablet 2022 023 [facility] #[id number], [address], [place], [address], 3 12:31:35 atorvastati n 10 mg tablet 2022 023 [facility] #[id number], [address], [place], [address], 12:30:49 losartan 100 mg tablet 2022 023 [id number], [address], [place], [address], 12:30:50 fluticasone propionate 50 mcg/actuati on nasal spray,suspe nsion 2022 023 [facility] #[id number], [address], [place], [address], 11:01:15 Patient TargetsNo targets recorded. Patient Instructions Encounter Date Encounter Id Patient Instructions Last Modified By Organization Details Last Modified Time 07/22/2023 [id number] dementia rating scale-2* Not available 07/22/2023 11:26:56 multi-dimensiona l health assessment questionnaire* [email or web address] Not available 07/22/2023 13:21:58 Personalized a lt Plan and Screening Recommendations Advance Directives - Do you have one? Advance Directives - Do we have your advance directive on file in your health record? Primary Prevention/Interven tion (prevents or decreases the chance of common diseases from occurring) Smoking Risk: Alcohol Misuse Screening: Weight: Physical activity: Nutrition: Fall Risk (screened today): Vaccines Pneumococcal: Influenza: Chronic Disease Risks Stroke: I have no recommendations Act casey diagnosis, Continue current treatment plan Heart Attack: I have no recommendations Act casey diagnosis, Continue current treatment plan Clogging of the Arteries: I have no recommendations Act casey diagnosis, Continue current treatment plan Diabetes: Active diagnosis, Continue current treatment plan Secondary Prevention/Interven tion (detects treatable diseases before they may cause symptoms, disability, or ) Prostate Cancer Screening: Colon Cancer Screening: Colonoscopy Date Screening Last Performed: Eye Disease Screening: Dementia Risk: Depression Screening: Active diagnosis, Continue current treatment plan Not available 08/07/2023 07:56:58 Reason for Referral Endocrinology Referral for W ell controlled type 2 diabetes mellitus Referring Physician: Lex Gomez, Endocrinology, Encounter Date: 06/18/2023 Results Created Date Observation Date Name Description Value Unit Range Abnormal Flag Note LastModifiedBy Organization Detail LastModifiedTime 04/30/2005/01/2023 LIPID PANEL WITH REFLE X TO DIREC T LDL cholesterol, total 113 mg/dL <200 normal Not Available [address] [place], [address], 05/01/2023 10:39:15 04/30/20 23 05/01/2023 LIPID PANEL WITH REFLE X TO DIREC T LDL HDL cholesterol 41 mg/dL > or = 40 normal Not Available [employer] [address] [address] [place], [address], 05/01/2023 10:39:15 04/30/20 23 05/01/2023 LIPID PANEL WITH REFLE X TO DIREC T LDL triglyceride s 218 mg/dL <150 high If a non-f astin g speci men was colle cted, consi madonna repea t trigl yceri de testi ng on a fasti ng speci men if clini ivana indic ated. Scott smith et al. J. of Clin. Lipid ol. 2015; 9:129 -169. Not Available [address] [address] [facility] [place], [address], 05/01/2023 10:39:15 04/30/2005/01/2023 LIPID PANEL WITH REFLE X TO DIREC T LDL LDL-choleste rol 43 mg/dL _(daniel c) normal Refer ence range : <100 Darlene able range <100 mg/dL for prima ry preve ntion ; <70 mg/dL for patie nts with CHD or diabe tic patie nts with > or = 2 CHD risk facto rs. LDL-C is now calcu lated using the Parisa n-Hop kins calcu latnasreen n, which is a valid ated novel metho d farhati yaya calderonte r accur acy than the Fried sujatha equat ion in the estim ation of LDL-C . Parisa HERNANDEZ et al. ABDIRIZAK. 2013; 310(1 9): 2061- 2068 (http ://ed ucati on.Marta carpenterAtonometrics. com/f aq/FA Q164) Not Available [address] [address] [place], [address], 05/01/2023 10:39:15 04/30/20 23 05/01/2023 LIPID PANEL WITH REFLE X TO DIREC T LDL chol/HDLC ratio 2.8 (calc ) <5.0 normal Not Available [facility] [address] [address] [facility] , [place], [address], 05/01/2023 10:39:15 04/30/20 23 05/01/2023 LIPID PANEL WITH REFLE X TO DIREC T LDL non HDL cholesterol 72 mg/dL _(daniel c) <130 normal For patie nts with diabe ruth plus 1 major ASCVD risk facto r, treat ing to a non-H DL-C goal of <100 mg/dL (LDL- C of <70 mg/dL ) is consi jalen a brenda vegao n. Not Available [address] [address] [place], [address], 05/01/2023 10:39:15 04/30/20 23 05/01/2023 COMPR EHENS CASEY METAB OLIC PANEL glucose 88 mg/dL 65-99 normal Fasti ng refer ence inter mike Not Available [facility] [address], [address], 05/01/2023 10:39:16 04/30/20 23 05/01/2023 COMPR EHENS CASEY METAB OLIC PANEL urea nitrogen (BUN) 26 mg/dL 7-25 high Not Available [facility] [address], [address], 05/01/2023 10:39:16 04/30/20 23 05/01/2023 COMPR EHENS CASEY METAB OLIC PANEL creatinine 1.75 mg/dL 0.70-1 .28 high Not Available [address] [address] [place], [address], 05/01/2023 10:39:16 04/30/2005/01/2023 COMPR EHENS CASEY METAB OLIC PANEL eGFR 40 mL/mi n/1.7 3m2 > or = 60 low Not Available [address], [address], 05/01/2023 10:39:16 04/30/20 23 05/01/2023 COMPR EHENS CASEY METAB OLIC PANEL BUN/creatini ne ratio 15 (calc ) 6-22 normal Not Available [address], [address], 05/01/2023 10:39:16 04/30/20 23 05/01/2023 COMPR EHENS CASEY METAB OLIC PANEL sodium 135 mmol/ L 135-14 6 normal Not Available [address], [address], 05/01/2023 10:39:16 04/30/20 23 05/01/2023 COMPR EHENS CASEY METAB OLIC PANEL potassium 4.2 mmol/ L 3.5-5. 3 normal Not Available [address], [address], 05/01/2023 10:39:16 04/30/20 23 05/01/2023 COMPR EHENS CASEY METAB OLIC PANEL chloride 103 mmol/ L 98-110 normal Not Available [address] [address] [place], [address], 05/01/2023 10:39:16 04/30/20 23 05/01/2023 COMPR EHENS CASEY METAB OLIC PANEL carbon dioxide 25 mmol/ L 20-32 normal Not Available [address], [address], 05/01/2023 10:39:16 04/30/20 05/01/2023 COMPR EHENS CASEY METAB OLIC PANEL calcium 9.1 mg/dL 8.6-10 .3 normal Not Available [address], [address], 05/01/2023 10:39:16 04/30/20 23 05/01/2023 COMPR EHENS CASEY METAB OLIC PANEL protein, total 6.5 g/dL 6.1-8. 1 normal Not Available [address], [address], 05/01/2023 10:39:16 04/30/2005/01/2023 COMPR EHENS CASEY METAB OLIC PANEL albumin 3.7 g/dL 3.6-5. 1 normal Not Available [address], [address], 05/01/2023 10:39:16 04/30/20 23 05/01/2023 COMPR EHENS CASEY METAB OLIC PANEL globulin 2.8 g/dL_ (calc ) 1.9-3. 7 normal Not Available [address], [address], 05/01/2023 10:39:16 04/30/20 23 05/01/2023 COMPR EHENS CASEY METAB OLIC PANEL albumin/glob ulin ratio 1.3 (calc ) 1.0-2. 5 normal Not Available [address], [address], 05/01/2023 10:39:16 04/30/20 23 05/01/2023 COMPR EHENS CASEY METAB OLIC PANEL bilirubin, total 0.6 mg/dL 0.2-1. 2 normal Not Available [address], [address], 05/01/2023 10:39:16 04/30/20 23 05/01/2023 COMPR EHENS CASEY METAB OLIC PANEL alkaline phosphatase 93 U/L 35-144 normal Not Available [address] [address] [place], [address], 05/01/2023 10:39:16 04/30/20 23 05/01/2023 COMPR EHENS CASEY METAB OLIC PANEL AST 15 U/L 10-35 normal Not Available [address] [address] [place], [address], 05/01/2023 10:39:16 04/30/20 23 05/01/2023 COMPR EHENS CASEY METAB OLIC PANEL ALT 11 U/L 9-46 normal Not Available [address], [address], 05/01/2023 10:39:16 04/30/20 23 05/01/2023 ALBUM IN, RANDO M URINE W/CRE ATINI NE creatinine, random urine 257 mg/dL 20-320 normal Not Available [address] [address] [place], [address], 05/01/2023 10:39:17 04/30/20 23 05/01/2023 ALBUM IN, RANDO M URINE W/CRE ATINI NE albumin, urine 5.3 mg/dL see note: normal Refer ence Range : Refer ence Range Not estab lishe d Not Available [address], [address], 05/01/2023 10:39:17 04/30/20 23 05/01/2023 ALBUM IN, RANDO M URINE W/CRE ATINI NE albumin/crea tinine ratio, random urine 21 mcg/m g_cre at <30 normal The ADA defin es abnor malit ies in album in excre tion as follo ws: Album inuri a Categ ory Resul t (mcg/ mg creat inine ) Victorina l to Mildl y incre ased <30 Moder ately incre ased 30-29 9 Sever marva incre ased > OR = 300 The ADA recom mends that at least two of three speci mens colle cted withi n a 3-6 month perio d be abnor mal befor e consi rogelio g a patie nt to be withi n a diagn ostic categ ory. Not Available [facility] [address] [place], [address], 05/01/2023 10:39:17 04/30/2005/01/2023 TSH+F REE T4 TSH 1.55 mIU/L 0.40-4 .50 normal Not Available [facility] [address] [place], [address], 05/01/2023 10:39:18 04/30/2005/01/2023 TSH+F REE T4 T4, free 1.2 NG/dL 0.8-1. 8 normal Not Available [facility] [address] [address] [place], [address], 05/01/2023 10:39:18 04/30/2005/01/2023 HEMOG LOBIN A1C hemoglobin A1C 6.3 %_of_ total _HGB <5.7 high For someo ne witho ut known diabe ruth, a hemog lobin A1c value betwe en 5.7% and 6.4% is consi stent with predi abete s and shoul d be confi rmed with a follo w-up test. For someo ne with known diabe ruth, a value <7% indic ates that their diabe ruth is well contr olled . A1c targe ts shoul d be indiv idual ized based on durat ion of diabe ruth, age, comor bid condi tions , and other consi derat ions. This assay resul t is consi stent with an incre ased risk of diabe ruth. Curre ntly, no conse nsus exist s regar ding use of hemog lobin A1c for diagn osis of diabe ruth for child brenda. Not Available [facility] [address] [place], [address], 05/01/2023 10:39:19 Result Notes None recorded. Problems Name Problem SNOMED Code Status Onset Date Resolution Date Notes Provider Name and Address Organization Details Recorded Time Nocturia 785967016 Active Not Available [facility] 3 13:48:29 Pain in throat 553153449 Active Not Available [facility] 3 13:48:29 Osteoart hritis of acromioc lavicula r joint 802476845 Active Not Available [facility] 3 13:48:29 Fluid level behind tympanic membrane Completed Not Available [facility] 3 00:53:33 Neuroend ocrine tumor 331032330 Active [address] Tejinder Chávez MD [address] [place] [address], [address] , [facility] [email or web address] 4 11:44:37 Type 2 diabetes mellitus without complica tion 671368685 Active Not Available [facility] 3 13:48:29 Onychomy cosis 360616381 Active Not Available [facility] 3 13:48:29 Uncontro lled type 2 diabetes mellitus 040812563 Active 2021 Not Available [facility] 3 13:48:29 Retinopa thy due to diabetes mellitus 8857958 Active Not Available [facility] 3 13:48:29 Cough 80004547 Active Not Available [facility] 3 13:48:29 Upper respirat ory infectio n 08861228 Completed Not Available [facility] 3 00:53:33 Hyperlip idemia 58396871 Active Not Available [facility] 3 13:48:29 [facility] hyperten jose 31515061 Active Not Available [facility] 3 13:48:29 Allergic rhinitis 89109513 Active Not Available [facility] 3 13:48:29 Chronic cough 61394210 Active Not Available [facility] 3 13:48:29 Liver enzymes level above referenc e range 914722287 Active Not Available [facility] 3 13:48:29 Diabetes mellitus 02392274 Active Not Available [facility] 13:48:29 Posterio r rhinorrh ea 92937363 Active Not Available [facility] 13:48:29 COVID-19 433557613 Active 2021 Not Available [facility] 13:48:29 Gout 49135691 Active Not Available [facility] 13:48:29 Well controll ed type 2 diabetes mellitus 477088990 Active 2022 Not Available [facility] 13:48:29 Dyslipid emia 553503729 Active 2022 Not Available [facility] 13:48:29 Serum creatini ne above referenc e range 722277439 Active 2023 Rosa Chávez MD [address] [place] [address], [place], [address] , [facility] 4 11:56:40 Problem Notes Documentation Provider Name and Address Organization Details Recorded Time Consult Note : [facility] [address], [facility] [address]VYINXID, Ray (Legal name: Manuel Mata) (id #[id number], : 1950) Documents sent via fax will include the following message: This fax may contain sensitive and confidential personal health information that is being sent for the sole use of the intended recipient. Unintended recipients are directed to securely destroy any materials received. You are hereby notified that the unauthorized disclosure or other unlawful use of this fax or any personal health information is prohibited. To the extent patient information contained in this fax is subject to 42 CFR Part 2, this regulation prohibits unauthorized disclosure of these records. If you received this fax in error, please visit [email or web address] to notify the sender and confirm that the information will be destroyed. If you do not have internet access, please call to notify the sender and confirm that the information will be destroyed. Thank you for your attention and cooperation. [ID:[id number]][facility] [employer] [address] [place] [address] , Date: 06/18/2023RE: Manuel Mata, : 1950, PT ID #[id number] L Kyler LEYVA, I would like to thank you for referring Manuel Mata to our practice for consultation and evaluation of FU ON LABS , on 06/18/2023. I have enclosed a copy of the office evaluation for your records. Once again, thank you for allowing me to participate in the care of this patient. Sincerely, Electronically Signed by: LEX GOMEZ MD Encounter Reason/Date FU ON LABS 06/18/2023 - 10:30AM - [facility] [place] Problems:Reviewed Problems Onychomycosis Neuroendocrine tumor - Onset: 11/21/2021 Diabetes mellitus Type 2 diabetes mellitus without complication Type II diabetes mellitus uncontrolled - Onset: 05/17/2022 Hyperlipidemia Dyslipidemia - Onset: 01/03/2023 Gout Retinopathy due to diabetes mellitus Essential hypertension Allergic rhinitis Posterior rhinorrhea Osteoarthritis of acromioclavicular joint Pain in throat Cough Chronic cough Nocturia Liver enzymes level above reference range COVID-19 - Onset: 01/29/2022 Type 2 diabetes mellitus well controlled - Onset: 11/29/2022 Allergies: Reviewed Allergies NKDA Medications: Reviewed Medications NameDate Source atorvastatin 10 mg tabletTAKE 1 TABLET BY MOUTH EVERYDAY AT COTEQAK30/10/23 prescribed Lex Gomez MD BD Ultra-Fine Mini Pen Needle 31 gauge x 3/16 USE FOR LEVEMIR [id number]/20/16 filled MIGRATION.[id number] BD Ultra-Fine Short Pen Needle 31 gauge x 5/16 INJECT AT HS02/05/17 filled MIGRATION.[id number] CoQ-36243ig 1 daily, start started MIGRATION.[id number] dilTIAZem CD 240 mg capsule,extended release 24 hrTAKE 1 CAPSULE BY MOUTH EVERY DAY04/21/23 filled surescripts Farxiga 10 mg tabletTAKE 1 TABLET EVERY DAY BY ORAL ROUTE IN THE MORNING FOR 90 DAYS.06/18/23 prescribed Lex Gomez MD Fish [id number] 3 TABS DAILY, start started MIGRATION.[id number] fluticasone propionate 50 mcg/actuation nasal spray,suspensionADMINISTER 1 SPRAY INTO EACH NOSTRIL DAILY05/31/23 filled surescripts glimepiride 2 mg tabletTAKE UP TO 2 TABLETS BY MOUTH TWICE A DAY07/17/22 filled MIGRATION.[id number] glimepiride 4 mg tabletTAKE 1 TABLET BY MOUTH TWICE A DAY06/18/23 prescribed Lex Gomez MD latanoprost 0.005 % eye dropsstart started Jeanne Rodriguez RN losartan 100 mg tabletTAKE 1 TABLET BY MOUTH EVERY DAY06/18/23 prescribed Lex Gomez MD octreotide [id number], start started Jeanne Rodriguez RN OneTouch Delica Lancets 33 gaugeTEST 2 OR 3 TIMES A DAY08/06/16 filled MIGRATION.[id number] OneTouch Verio test stripsUse to check glucose 3 times daily.06/18/23 prescribed Lex Gomez MD Tresiba FlexTouch U-200 insulin 200 unit/mL (3 mL) subcutaneous penInject 26 unit(s) every day by subcutaneous route in the evening for 90 days.06/18/23 prescribed Lex Gomez MD Victoza 3-Chance 0.6 mg/0.1 mL (18 mg/3 mL) subcutaneous pen injectorINJECT 1.8 MG UNDER THE SKIN ONCE DAILY06/18/23 prescribed Lex Gomez MD B-12, Cranberry, Vitamin D3 Family History:Family History not reviewed (last reviewed 01/15/2023) Father - Hypertensive disorder - Myocardial infarction - Diabetes mellitus Sister - Malignant tumor of ovary Mother - Cardiopulmonary bypass operation - Kidney excision - removal of kidney Social History:Social History not reviewed (last reviewed 01/15/2023) Substance UseDo you or have you ever smoked tobacco?: Never smokerHow much tobacco do you chew?: noneDo you or have you ever used any other forms of tobacco or nicotine?: NoWhat was the date of your most recent tobacco screening?: 01/15/2023Has tobacco cessation counseling been provided?: NoWhat is your level of alcohol consumption?: NoneDo you use any illicit or recreational drugs?: NoWhich illicit or recreational drugs have you used?: noWhat is your level of caffeine consumption?: NonePublic Health and TravelIn the 14 days before symptom onset, have you had close contact with a laboratory-confirmed COVID-19 while that case was ill?: NoIn the 14 days before symptom onset, have you had close contact with a person who is under investigation for COVID-19 while that person was ill?: NoGender Identity and LGBTQ IdentityFirst name used: Palomo with and 94 year old father in law No pets 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 last seen in December at that time we had patient continue on tresiba 26-28 units with goal to titrate to goal fasting sugars to ideal range of 90-120 mg/dL.We had patient continue victoza at 1.2 mg SQ daily along with farxiga 10 mg daily along glimepiride scale at lower scale of 2 mg- he is aware to hold if premeal sugars under 100 mg/dL to reduce risk for hypoglycemia. we continued statin therapy. 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 He just had tumor removed on March 15. He stopped taking glimepiride prior to his surgery. He did stop glimepiride until sugars are over 90 mg/dL. Sugars are running 90-120 mg/dL range. He is no longer having lows. He is taking fish oil and coQ 10 - 120/360 mg of omega 3 fatty acid. labs from 05/01:a1c 6.3%TSH of 1.55 uIU/mlFT4 of 1.2 ng/dLmicroalbumin 21 ug/mgCr 1.75 mg/dL with GFR 40 ml/minLFT oxuwmj024/218/41/43Review of Systems:ROS as noted in the HPIPhysical ExamConstitutional:General Appearance: healthy-appearing, well-nourished, well-developed, not anxious/nervous, and no sweating. Level of Distress: no acute distress. Eyes:Lids and Conjunctivae: no discharge, pallor, lid lag, or periorbital edema and non-injected. Neck:Neck: supple, trachea midline, no masses, and full range of motion. Thyroid: no enlargement or nodules and non-tender. Neck vessels: no carotid bruits or thyroid bruits. Lymph Nodes: no anterior cervical LAD, posterior cervical LAD, submandibular LAD, submental LAD, preauricular LAD, or supraclavicular LAD. Cardiovascular:Apical Impulse: not displaced. Heart Auscultation: normal S1 and S2; no murmurs, rubs, or gallops; and regular rate and rhythm. Lungs:Auscultation: no wheezing, rales/crackles, or rhonchi and breath sounds normal, good air movement, and clear to auscultation. Psychiatric:Mental Status: normal mood and affect, no diffuse anxiety or paranoid ideations, and active and alert.Procedure DocumentationNone recordedAssessment/Plan1. Type 2 diabetes mellitus well controlled-a1c of 6.3% down from 6.9% - continue on tresiba 26-28 units with goal to titrate to goal fasting sugars to ideal range of 90-120 mg/dL. Continue victoza at 1.2 mg SQ daily along with farxiga 10 mg daily along glimepiride scale at lower scale of 2 mg- he is aware to hold if premeal sugars under 100 mg/dL to reduce risk for hypoglycemia. Recommended he incorporate natural insulin sensitizers such as pears, apples, cinnamon, ivan and sweet potatoes to help mobilize his endogenous insulin. Recommended up to 150 minutes of moderate level activity/exercise weekly. Refer to endocrinology per patient request.E11.9: Type 2 diabetes mellitus without complications ENDOCRINOLOGY REFERRAL - Schedule Within: provider's discretion BD ULTRA-FINE SHORT PEN NEEDLE 31 GAUGE X 5/16 - inject insulin and victoza once daily Qty: 180 Units Refills: 4 Supplier: [facility] #[id number] OneTouch Verio test strips - Use to check glucose 3 times daily. Qty: (2) 100 strip box Refills: 6 Pharmacy: [facility] #[id number] Tresiba FlexTouch U-200 insulin 200 unit/mL (3 mL) subcutaneous pen - Inject 26 unit(s) every day by subcutaneous route in the evening for 90 days. Qty: (9) 3 mL syringe Refills: 4 Pharmacy: [facility] #[id number] Victoza 3-Chance 0.6 mg/0.1 mL (18 mg/3 mL) subcutaneous pen injector - INJECT 1.8 MG UNDER THE SKIN ONCE DAILY Qty: (3) 3 mL syringe Refills: 4 Pharmacy: [facility] #[id number] Farxiga 10 mg tablet - TAKE 1 TABLET EVERY DAY BY ORAL ROUTE IN THE MORNING FOR 90 DAYS. Qty: (90) tablet Refills: 2 Pharmacy: [facility] #[id number] ONETOUCH DELICA PLUS LANCET 33 GAUGE - test sugars three times daily x 90 days Qty: 270 Units Refills: 6 Supplier: [facility] #[id number] glimepiride 4 mg tablet - TAKE 1 TABLET BY MOUTH TWICE A DAY Qty: (180) tablet Refills: 4 Pharmacy: [facility] #[id number] 2. Essential hypertension-Continue on losartan 100 mg daily/ diltiazem managed by cardiology/PCP.I10: Essential (primary) hypertension losartan 100 mg tablet - TAKE 1 TABLET BY MOUTH EVERY DAY Qty: (90) tablet Refills: 4 Pharmacy: [facility] #[id number] 3. Dyslipidemia-LDL in range- continue atorvastatin 10 mg daily at bedtime. Spent up to 25 minutes preparing to see the patient (eg, review of tests), obtaining and/or reviewing separately obtained history, performing a medically appropriate examination and evaluation, counseling and educating the patient, ordering medications, tests, along with documenting clinical information in the electronic health record, independently interpreting results and communicating results to the patient. Patient can be followed by PCP - she/he is aware of my resignation and last day of June 21. If needed his/her PCP can refer patient to another instructor bus trolley and taxi in the area. All questions /concerns answered and refills necessary at visit today.E78.5: Hyperlipidemia, unspecified atorvastatin 10 mg tablet - TAKE 1 TABLET BY MOUTH EVERYDAY AT BEDTIME Qty: (90) tablet Refills: 4 Pharmacy: [facility] #[id number] Return to Office Rosa Chávez MD for Medicare Wellness 30 at [facility] on 07/22/2023 at 10:30 AM Kiana Osorio RN [facility], [facility] [employer] 06/18/2023 12:47:09 Procedures Surgical History Date Name Laterality Status Provider Name and Address Organization Details Recorded Time 07/22/20 23 Medicare Wellness CPT Code, subsequent completed CARLITOS Bolaños [facility] [employer] 07/22/2023 10:54:42 10/19/19 21 Biopsy completed Not Available [facility] 00:46:51 Colonoscopy completed Not Available [facility] 11/07/2022 00:46:51 Cataract Surgery completed Not Available [facility] 11/07/2022 00:46:51 Rotator cuff surgery completed Not Available [facility] 11/07/2022 00:46:51 Orthopedic Surgery completed Not Available [facility] 11/07/2022 00:46:51 Imaging Results None recorded. Procedure Notes None recorded. Medical Equipment None Reported. Allergies No known drug allergies Medications Name Sig Start Date Stop Date Status Note LastModified by Organization Details LastModified Time latanoprost 0.005 % eye drops INSTILL 1 DROP INTO BOTH EYES AT BEDTIME active Not Available Not Available No t Available atorvastati n 10 mg tablet TAKE 1 TABLET BY MOUTH EVERYDAY AT BEDTIME active Not Available Not Available No t Available azithromyci n 250 mg tablet TAKE 2 TABLETS (500 MG) BY ORAL ROUTE ONCE DAILY FOR 1 DAY THEN 1 TABLET (250 MG) BY ORAL ROUTE ONCE DAILY FOR 4 DAYS active Not Available Not Available No t Available diltiazem CD 240 mg capsule,ext ended release 24 hr TAKE 1 CAPSULE BY MOUTH EVERY DAY 01/19 completed Not Available Not Available Not Available amlodipine 2.5 mg tablet TAKE 1 TABLET BY MOUTH EVERY DAY active Not Available Not Available No t Available amlodipine 5 mg tablet TAKE ONE TABLET TWICE DAILY 06/26 completed Not Available Not Available Not Available glimepiride 2 mg tablet TAKE UP TO 2 TABLETS BY MOUTH TWICE A DAY active Not Available Not Available No t Available prednisolon e acetate 1 % eye drops,suspe nsion Instill 1 drop twice a day by ophthalmi c route for 30 days. active Not Available Not Available No t Available ciprofloxac in 0.3 % eye drops Instill 1 drop twice a day by ophthalmi c route for 30 days. active Not Available Not Available No t Available metformin 1,000 mg tablet TAKE 1 TABLET TWICE A DAY. 10/27 completed Not Available Not Available Not Available diclofenac 0.1 % eye drops Instill 1 drop twice a day by ophthalmi c route for 30 days. active Not Available Not Available No t Available glimepiride 4 mg tablet TAKE 1 TABLET BY MOUTH TWICE A DAY 2022 active Not Available Not Available Not Avai lable brimonidine 0.2 % eye drops 12/24 completed Not Available Not Available Not Available aspirin 81 mg chewable tablet Chew 1 tablet every day by oral route. 10/27 completed Not Available Not Available Not Available dorzolamide 22.3 mg-timolol 6.8 mg/mL eye drops PLACE 1 DROP INTO AFFECTED EYE(S) TWICE A DAY FOR 3 WEEKS 06/18 completed Not Available Not Available Not Available hydrochloro thiazide 25 mg tablet 01/26 completed Not Available Not Available Not Available Nasonex 50 mcg/actuati on [place] USE 2 SPRAYS IN EACH NOSTRIL ONCE DAILY AT BEDTIME active Not Available Not Available No t Available methylpredn isolone 4 mg tablets in a dose pack Take as directed on pack. Direction s for Medrol Dosepak: 1st day: 2 tablets before breakfast , 1 tablet after lunch and after supper, and 2 tablets at bedtime. 2nd day: 1 tablet before breakfast . 1 tablet after lunch and after supper, and 2 tablets at bedtime. 3rd day: 1 tablet before breakfast , after lunch, after supper and at bedtime. 4th day: 1 tablet before breakfast , after lunch and at bedtime. 5th day: 1 tablet before breakfast and at bedtime. 6th day: 1 tablet before breakfast active Not Available Not Available No t Available losartan 100 mg tablet TAKE 1 TABLET BY MOUTH EVERY DAY active Not Available Not Available No t Available fluticasone propionate 50 mcg/actuati on nasal spray,suspe nsion ADMINISTE R 1 SPRAY INTO EACH NOSTRIL DAILY active Not Available Not Available No t Available oxycodone 5 mg tablet 06/18 completed Not Available Not Available Not Available metformin ER 1,000 mg tablet,exte nded release 24hr (osmotic) Take 1 tablet twice a day by oral route for 90 days. 12/06 completed Not Available Not Available Not Available BD Ultra-Fine Mini Pen Needle 31 gauge x 3/16 USE FOR LEVEMIR INJECTION S active Not Available Not Available No t Available Fish Oil 1000MG 3 TABS DAILY 2015 active Not Available Not Available Not Avai lable octreotide acetate 20 2022 active Not Available Not Available Not Avai lable glucosamin- chond-msm-c al-115HC 06/18 completed Not Available Not Available Not Available Alphagan P 0.1 % eye drops Instill 1 drop twice a day by ophthalmi c route for 30 days. 12/24 completed Not Available Not Available Not Available BD Ultra-Fine Short Pen Needle 31 gauge x 5/16 INJECT AT HS active Not Available Not Available No t Available Janumet 50 mg-1,000 mg tablet TAKE ONE TABLET TWICE DAILY 10/12 completed Not Available Not Available Not Available CoQ-10 100mg 1 daily 2014 active Not Available Not Available Not Avai lable Humalog Mix 75-25 KwikPen U-100 insulin 100 unit/mL subcutaneou s pen INJECT 14 UNITS AT BREAKFAST AND 20 UNITS AT SUPPER 10/27 completed Not Available Not Available Not Available OneTouch Delica Lancets 33 gauge TEST 2 OR 3 TIMES A DAY active Not Available Not Available No t Available Suprep Bowel Prep Kit 17.5 gram-3.13 gram-1.6 gram oral solution TAKE DIRECTED 01/03 completed Not Available Not Available Not Available Tradjenta 5 mg tablet Take 1 tablet every day by oral route for 90 days. 01/23 completed Not Available Not Available Not Available glucosam jorge dip-chondro it-C-Mn 2 daily 01/26 completed Not Available Not Available Not Available OneTouch Verio test strips USE TO TEST 3 TIMES DAILY active Not Available Not Available No t Available Victoza 3-Chance 0.6 mg/0.1 mL (18 mg/3 mL) subcutaneou s pen injector INJECT 1.8 MG UNDER THE SKIN ONCE DAILY 01/19 completed Not Available Not Available Not Available Farxiga 10 mg tablet TAKE 1 TABLET EVERY DAY BY ORAL ROUTE IN THE MORNING FOR 90 DAYS. 2022 active Not Available Not Available Not Avai lable Levemir FlexTouch U-100 Insulin 100 unit/mL (3 mL) subcutaneou s pen Inject 30 units every day by sub-q route at bedtime for 50 days. 12/24 completed Not Available Not Available Not Available Christian SoloStar U-300 Insulin 300 unit/mL (1.5 mL) subcutaneou s pen Inject 14 units everyday by subcutane uous route at bedtime 02/01 completed Not Available Not Available Not Available Tresiba FlexTouch U-200 insulin 200 unit/mL (3 mL) subcutaneou s pen INJEECT 26 UNITS UNDER THE SKIN ONCE DAILY IN THE EVENING active Not Available Not Available No t Available Carmen BCise 2 mg/0.85 mL subcutaneou s auto-inject or Please specify direction s, refills and quantity active Not Available Not Available No t Available Fluzone High-Dose Quad 2020 (PF) 240 mcg/0.7 mL IM syringe PHARMACY ADMINISTE RED 01/03 completed Not Available Not Available Not Available Ozempic 0.25 mg or 0.5 mg (2 mg/3 mL) subcutaneou s pen injector INJECT 0.25MG UNDER THE SKIN ONCE WEEKLY WITH A MEAL X4 WEEKS THEN INCREASE TO 0.5MG ONCE WEEKLY active Not Available Not Available No t Available Vitals Date Recorded Body height Body mass index (BMI) Body weight Body temperature Heart rate Systolic blood pressure Diastolic blood pressure Provider Name and Address Organization Details Last Updated DateTime 3 182.88 cm 31.6 kg/m2 384745. 74 g 97.8 [degF] 44 /min 114 mm[Hg] 57 mm[Hg] NOHELIA Nam [facility] [employer] 3 14:22:48 Date Recorded Body height Body mass index (BMI) Body weight Body temperature Heart rate Oxygen saturation Oxygen saturation in Arterial blood by Pulse oximetry Systolic blood pressure Diastolic blood pressure Provider Name and Address Organization Details Last Updated DateTime 3 182.88 cm 31.6 kg/m2 635657. 02 g 94.4 [degF] 67 /min 98 % 98 % 126 mm[Hg] 88 mm[Hg] Kiana Osorio RN [facility] [employer] [facility] 3 10:38:44 Date Recorded Body height Body mass index (BMI) Body weight Body temperature Respiratory rate Heart rate Systolic blood pressure Diastolic blood pressure Provider Name and Address Organization Details Last Updated DateTime 3 182.88 cm 29.2 kg/m2 01414.3 6 g 97.9 [degF] 14 /min 66 /min 140 mm[Hg] 88 mm[Hg] Jeanne Rodriguez RN [facility] [employer] [facility] 3 11:40:02 Date Recorded Body height Body mass index (BMI) Body weight Body temperature Heart rate Oxygen saturation Oxygen saturation in Arterial blood by Pulse oximetry Systolic blood pressure Diastolic blood pressure Provider Name and Address Organization Details Last Updated DateTime 3 182.88 cm 29.6 kg/m2 35446.1 4 g 97.7 [degF] 59 /min 98 % 98 % 138 mm[Hg] 78 mm[Hg] Kaina Osorio RN [facility] [employer] [facility] 3 10:55:51 Date Recorded Body height Body mass index (BMI) Body weight Body temperature Heart rate Oxygen saturation Oxygen saturation in Arterial blood by Pulse oximetry Provider Name and Address Organization Details Last Updated DateTime 4 182.88 cm 30 kg/m2 243701. 91 g 97.9 [degF] 69 /min 97 % 97 % Kiana Osorio RN [facility] [employer] [facility] 4 11:42:05 Date Recorded Systolic blood pressure Diastolic blood pressure Provider Name and Address Organization Details Last Updated DateTime 01/20/2024 148 mm[Hg] 82 mm[Hg] Rosa Chávez MD [address], [address], [facility] [employer] [facility] 01/20/2024 11:57:46 Social History Question Answer Notes LastModified by Organizat ion Details LastModified Time Tobacco Smoking Status Never Smoker Not Available [facility] 11/07/2022 00:45:57 What Is Your Level Of Alcohol Consumption? None [id number] Information not available 11/07/2022 What Is Your Level Of Caffeine Consumption? None [id number] Information not available 11/07/2022 How Much Tobacco Do You Chew? None [id number] Information not available 11/07/2022 In The 14 Days Before Symptom Onset, Have You Had Close Contact With A Laboratory-confirm ed COVID-19 While That Case Was Ill? No [id number] Information not available 11/07/2022 In The 14 Days Before Symptom Onset, Have You Had Close Contact With A Person Who Is Under Investigation For COVID-19 While That Person Was Ill? No [id number] Information not available 11/07/2022 Which Illicit Or Recreational Drugs Have You Used? No [id number] Information not available 11/07/2022 What Was The Date Of Your Most Recent Tobacco Screening? 07/22/2023 Information not available 08/07/2023 Do You Use Any Illicit Or Recreational Drugs? No [email or web address] Information not available 01/15/2023 Has Tobacco Cessation Counseling Been Provided? No [email or web address] Information not available 01/15/2023 Do You Or Have You Ever Used Any Other Forms Of Tobacco Or Nicotine? No [email or web address] Information not available 01/15/2023 Sex: Unknown Functional Status None recorded. Mental Status None recorded. Family History Relationship Description Onset Age of this Age Resolved Age Notes LastModified by Organization Details LastModified Time Father Hypertensive disorder [id number] Not available 11/07/2022 00:46:55 Father Myocardial infarction [id number] Not available 11/07/2022 00:46:55 Father Diabetes mellitus [id number] Not available 11/07/2022 00:46:55 Sister Malignant tumor of ovary Not available 2022 10:56:46 Mother Cardiopulmon joaquín bypass operation [id number] Not available 11/07/2022 00:46:55 Mother Kidney excision remova l of kidney [id number] Not available 11/07/2022 00:46:55 Medical History Condition Response DIABETES, TYPE Y HYPERTENSION Y Immunizations Vaccine Type Date Status Note Provider Nam e and Address Organization Details Recorded Time COVID-19, mRNA, LNP-S, bivalent, PF, 30 mcg/0.3 mL dose 2 completed Rosa Chávez MD [address] [facility], [address], [place], [address], [place] - [facility] 01/15/2023 11:03:55 COVID-19, mRNA, LNP-S, PF, 100 mcg/0.5mL dose or 50 mcg/0.25mL dose 1 completed Not Available [facility] 11/07/2022 01:01:43 COVID-19, mRNA, LNP-S, PF, 100 mcg/0.5mL dose or 50 mcg/0.25mL dose 1 completed Not Available [facility] 11/07/2022 01:01:43 Influenza, split virus, quadrivalent, preservative 0 completed Not Available [facility] 11/07/2022 01:01:43 Influenza, high-dose, trivalent, PF 4 completed Not Available [facility] 11/07/2022 01:01:43 Influenza, split virus, trivalent, preservative 3 completed Not Available [facility] 11/07/2022 01:01:43 Tdap 1 completed Not Available [facility] 11/07/2022 01:01:43 Influenza, split virus, trivalent, PF 0 completed Not Available [facility] 11/07/2022 01:01:43 pneumococcal polysaccharide PPV23 8 completed Not Available [facility] 11/07/2022 01:01:43 Influenza, high-dose, quadrivalent, PF 2 completed Not Available [facility] 11/07/2022 01:01:43 Influenza, high-dose, trivalent, PF 9 completed Not Available [facility] 11/07/2022 01:01:44 Hep A, adult 9 completed Not Available [facility] 11/07/2022 01:01:44 Influenza, high-dose, trivalent, PF 8 completed Not Available [facility] 11/07/2022 01:01:44 Influenza, high-dose, trivalent, PF 7 completed Not Available [facility] 11/07/2022 01:01:44 Influenza, split virus, quadrivalent, preservative 6 completed Not Available [facility] 11/07/2022 01:01:44 Influenza, high-dose, trivalent, PF 5 completed Not Available [facility] 11/07/2022 01:01:44 Pneumococcal conjugate PCV 13 4 completed Not Available [facility] 11/07/2022 01:01:45 pneumococcal polysaccharide PPV23 3 completed Rosa Chávez MD [address] [place] [address], [address], [facility] [employer] [facility] [email or web address] 02/06/2023 13:44:14 Past Encounters Encounter ID Performer Location Encounter Start Date Encounter Closed Date Diagnosis/Indication Diagnosis SNOMED-CT Code Diagnosis ICD10 Code Diagnosis Note [id number] [facility] [place] [address] [place] [address] 11/08/2020 00:00:00 11/08/2020 13:39:51 [id number] [facility] [place] [address] 01/03/2021 00:00:00 01/03/2021 11:37:45 [id number] [facility] [place] [address] [place] [address] 02/20/2021 00:00:00 02/20/2021 13:31:32 [id number] [facility] [place] [address] 11/21/2021 00:00:00 11/21/2021 11:40:22 [id number] [facility] [place] [address] 06/13/2022 00:00:00 06/13/2022 11:55:01 [id number] [facility] [place] [address] [place] [address] 07/17/2022 00:00:00 07/17/2022 14:13:32 [id number] Lex Gomez MD [facility] [place] [address] [place] [address] 01/03/2023 14:09:14 01/03/2023 14:58:32 Well controlled type 2 diabetes mellitus 348446498 E11.9 a1c of 6.9% - continue on tresiba 26-28 units with goal to titrate to goal fasting sugars to ideal range of 90-120 mg/dL. Continue victoza at 1.2 mg SQ daily along with farxiga 10 mg daily along glimepirid e scale at lower scale of 2 mg- he is aware to hold if premeal sugars under 100 mg/dL to reduce risk for hypoglycem ia. Discussed carb counting and how to read food labels. Recommende d patient to utilize the diabetesfo [employer] from the ADA website to help with food preparatio n as this presents ideal carb content per meal so this will make carb counting much easier for patient. Recommende d he incorporat e natural insulin apartment maintenance s such as pears, apples, cinnamon, ivan and sweet potatoes to help mobilize his endogenous insulin. Recommende d up to 150 minutes of moderate level activity/e xercise weekly. Dyslipidemia 316423991 E 78.5 LDL in range- continue atorvastat in 10 mg daily at bedtime. Spent up to 26 minutes preparing to see the patient (eg, review of tests), obtaining and/or reviewing separately obtained history, performing a medically appropriat e examinatio n and evaluation , counseling and educating the patient, ordering medication s, tests, along with documentin g clinical informatio n in the electronic health record, independen tly interpreti ng results and communicat ing results to the patient. RTC in 6 months. Patient was provided a handwritte n lab order which contains our fax number. If he chooses to go outside of the [facility] system to obtain labwork he was advised to provide our fax number and my informatio n to the lab he will be obtaining labwork from in order to have his labs properly forwarded over for me to review so there is no loss of follow up due to use of outside network. He was also advised to contact our clinic informing us that he has completed his labwork so we are aware we will need to reach out to the appropriat e laboratory to request his results be forwarded to us so I might have the ability to review and make further medical decision making in his case. He voiced understand ing. [id number] Rosa Chávez MD [facility] Primary Care Jenise montalvo [address] [facility] [address] [place] [address] 01/15/2023 10:28:26 01/15/2023 12:15:38 Posterior rhinorrhea 66798912 R09.82 Active or passive immunization 725855937 Z23 [id number] Lex Gomez MD [facility] [place] [address] [place] [address] 06/18/2023 11:02:04 06/18/2023 12:28:34 Well controlled type 2 diabetes mellitus 890445139 E11.9 a1c of 6.3% down from 6.9% - continue on tresiba 26-28 units with goal to titrate to goal fasting sugars to ideal range of 90-120 mg/dL. Continue victoza at 1.2 mg SQ daily along with farxiga 10 mg daily along glimepirid e scale at lower scale of 2 mg- he is aware to hold if premeal sugars under 100 mg/dL to reduce risk for hypoglycem ia. Recommende d he incorporat e natural insulin apartment maintenance s such as pears, apples, cinnamon, ivan and sweet potatoes to help mobilize his endogenous insulin. Recommende d up to 150 minutes of moderate level activity/e xercise weekly. Refer to endocrinol ogy per patient request. Essential hypertension 84585324 I10 Continue on losartan 100 mg daily/ diltiazem managed by cardiology /PCP. Dyslipidemia 561808045 E 78.5 LDL in range- continue atorvastat in 10 mg daily at bedtime. Spent up to 25 minutes preparing to see the patient (eg, review of tests), obtaining and/or reviewing separately obtained history, performing a medically appropriat e examinatio n and evaluation , counseling and educating the patient, ordering medication s, tests, along with documentin g clinical informatio n in the electronic health record, independen tly interpreti ng results and communicat ing results to the patient. Patient can be followed by PCP - she/he is aware of my resignatio n and last day of June 21. If needed his/her PCP can refer patient to another endocrinol ogist in the area. All questions /concerns answered and refills necessary at visit today. [id number] Rosa Chávez MD [facility] Primary Care [facility] [address] [place] [address] 07/22/2023 10:47:02 07/22/2023 12:01:33 Adult health examination 085161901 Z00.00 Has received covid booster 07/01Has received flu vaccine 07/01Pneum ovax January3Prevna r 20 recommende d in January4Recomm end shingles vaccineCol on2020 repeat in 2024Fastin g labs up to date Screening for disorder 443642043 Z13.9 [id number] Rosa Chávez MD [facility] Primary Care [facility] [address] [place] [address] 01/20/2024 11:37:52 01/20/2024 12:04:56 Neuroendocrine 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 Marr Essential hypertension 51114533 I10 in excellent control per home readingsha s white coat htnstable on amlodipine 2.5 mg daily and losartan 100 mg daily Diabetes mellitus 953408 09 E11.[address] Gomez Serum crea tinine above reference range 632502919 R79.[address] Kaminski, now back to baselineha s f/u in 3 monthscont inue current meds Health Concerns Section Related Observation LastModified by Organization Detai ls LastModified Time None Recorded Concern Status LastModified by Organization Details LastModified Time None Recorded Advance Directives Directive None Recorded Payers Encounter Date Sequence Insurance Name Policy Number Policy Alejandra Covered Member ID Alejandra Member ID Guarantor Name 01/03/2023 1 [place] Manuel Mata [id number] Manuel Mata 01/03/2023 2 [place] [id number] Manuel Mata [id number] Manuel Mata 01/15/2023 1 [place] Mata [id number] Manuel Mata 01/15/2023 2 [place] [id number] Manuel Mata [id number] Manuel Mata 06/18/2023 1 [place] Mata [id number] Manuel Mata 06/18/2023 2 [place] [id number] Manuel Mata [id number] Manuel Mata 07/22/2023 1 [place] Mata [id number] Manuel Mata 07/22/2023 2 [place] [id number] Manuel Mata [id number] Manuel Mata 01/20/2024 1 [place] Manuel Mata [id number] Manuel Mata 01/20/2024 2 [place] [id number] Manuel Mata [id number] Manuel Mata Notes Date Note Type Note Provider Name and Address Organization Details Recorded Time 3 text/html 72 yo male comes in for follow up in management of well controlled type 2 DM (A1C of 6.9%), dyslipidemia. last seen in Jul at that time we had patient continue on tresiba 26-28 units with goal to titrate to goal fasting sugars to ideal range of 90-120 mg/dL. We had patient continue on higher dose of victoza at 1.2 mg SQ daily along with farxiga 10 mg daily along glimepiride scale but drop glimepiride down to 2 mg from 4 mg - he is aware to hold if premeal sugars under 100 mg/dL to reduce risk for hypoglycemia. we continued atorvastatin 10 mg daily and LDL in range. 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 He has no hypoglycemia- rare for him- he is not hungry as he used to be. He has to divide his medications in morning and evening. He does feel the itch come on he knows his sugars are high. He follows Dr. Auguste-retinal specialist every 3 months. Had cataracts removed years ago- in 2013 and another around 2019. labs from 11/02/22:a1c of 6.9%TSH of 1.57 uIU/mlFT4 of 1.1 ng/dLmicroalbumin 46 ug/mg142/152/41/76Cr 1.9 mg/dLglucose 119 mg/dLLFT normal Lex Gomez MD [address] [facility], [facility] [address], [place], [address], [email or web address] 01/03/2023 15:06:16 3 text/html Oncology Dr. Mccabecrinology Dr. GomezNephrology Dr. Kaminski has pet scan scheduled next week drip down back of throat-taking loratadine Rosa Chávez MD [address] [facility], [facility] [address], [place], [address], [email or web address] 02/06/2023 13:44:47 3 text/html 72 yo male comes in for follow up in management of well controlled type 2 DM (A1C of 6.3% down from 6.9%), dyslipidemia. last seen in December at that time we had patient continue on tresiba 26-28 units with goal to titrate to goal fasting sugars to ideal range of 90-120 mg/dL.We had patient continue victoza at 1.2 mg SQ daily along with farxiga 10 mg daily along glimepiride scale at lower scale of 2 mg- he is aware to hold if premeal sugars under 100 mg/dL to reduce risk for hypoglycemia. we continued statin therapy. 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 He just had tumor removed on March 15. He stopped taking glimepiride prior to his surgery. He did stop glimepiride until sugars are over 90 mg/dL. Sugars are running 90-120 mg/dL range. He is no longer having lows. He is taking fish oil and coQ 10 - 120/360 mg of omega 3 fatty acid. labs from 05/01:a1c 6.3%TSH of 1.55 uIU/mlFT4 of 1.2 ng/dLmicroalbumin 21 ug/mgCr 1.75 mg/dL with GFR 40 ml/minLFT /218/41/43 Lex Gomez MD [address], [place], [address], [employer] [facility] [employer] [facility] 06/18/2023 12:35:04 3 text/html Here for wellness exam, had bowel obstruction with subsequent cholecystectomy and partial bowel resection in March, doing well. Rosa Chávez MD [address], [place], [address], [employer] [facility] [employer] 08/07/2023 07:57:13 4 text/html Had appt with Dr. Gomez at her new office in [place], a1c was 6home blood pressures 130s/60s-70sno chest pain or sobrecent MRI showed no active disease from neuroendocrine cancer Rosa Chávez MD [address] [facility] [address], [place], [address], [employer] [facility] [employer] [facility] 01/20/2024 11:59:02
--- OUTSIDE RECORDS SUMMARY | 2024-12-31 12:37 | XMS_ITS ---
Author Organization [facility] [place] Address [address] [place] [address] Care Team Providers Care Child Nutrition Manager Name Role Phone PhilipNicole Primary Care Provider [phone] Medications Medication SIG (Take, Route, Frequency, Duration) Notes Start Date End Date Status Ozempic (0.25 or 0.5 MG/DOSE) 2 MG/3ML inject 0.5 mg Subcutaneous weekly for 90 days 09/07/2024 Active Encounters Encounter Location Date Provider Diagnosis [facility] [address] [place] [address] 09/07/2024 Nicole Palacios Type 2 diabetes efrain itus with hyperglycemia E11.65 Assessments Encounter Date Diagnosis (ICD Code) Assessment Notes Treatment Notes Treatment Clinical Notes Section Notes 09/07/2024 Type 2 diabetes mellitus with hyperglycemia (ICD-10 - E11.65) Plan Of Treatment Medication Medication Name Sig Start Date Stop Date Notes Ozempic (0.25 or 0.5 MG/DOSE) 2 MG/3ML inject 0.5 mg Subcutaneous weekly for 90 days 09/07/2024 Progress Notes * MESSI WALLACEDOB:[birth year] (73 yo M)Acc No.[id number]:09/07/2024 Patient: MESSI MARTINEZ :1950 A ge:73 Y S ex:Male Address:[address] [place] [address] * Refills Start Ozempic (0.25 or 0.5 MG/DOSE) Solution Pen-injector, 2 MG/3ML, Subcutaneous, 3, inject 0.5 mg, weekly, 90 days, Refills=1 Subjective: * Chief Complaints: * * Medical History: * Surgical History: * Hospitalization/Major Diagno stic Procedure: * Medications: Objective: * Vitals: * Physical Examination: Assessment: * Assessment: 1. T ype 2 diabetes mellitus with hyperglycemia - E11.65 (Primary) Plan: * Treatment: * Procedure Codes: * true * Date: Generated for Lucinda cope/Isabella/Essenceitting on: 0 12/31/2024 12:36 PM CDT
--- OUTSIDE RECORDS SUMMARY | 2024-12-31 12:37 | XMS_ITS | Continuity of Care Document ---
Author Organization [facility] Address [address] [place] [address] [address] [phone] Phone Care Team Providers Care Derrick Man Name Role Phone Britton Bland MD Unavailable Unavailable Procedures Procedure Date CATARACT SURG W/IOL, 1 STAGE OFFICE/OUTPATIENT VISIT, [facility] Advance Directives Directive Yes / No Effective Date File Name No Information Encounters Encounter Description Practice Location Reason(s) For Visit Diagnoses Date Provider Providers Copied on Encounter Ophthalmology [facility], [address] [place] [address], [address] [place] [address], tel:[phone] [facility] No Information 3 Baldo Jarquin. [address] [place] [address], [address], [place], [place], [facility], . tel:[phone] Referring Provider: Britton Salas, [address] [place] [address] [address], [place], [place], [facility]. tel:[phone] OFFICE/OUTPA TIENT VISIT, [facility] Ophthalmology [facility], [address] [place] [address], [place], [address] [place] [address], tel:[phone] No Information 3 Baldo Jarquin. [address] [place] [address], [address], [place], [place], [facility], . tel:[phone] Referring Provider: Britton Salas, [address] [place] [address] [address], [place], [facility]. tel:[phone] Family History Family Member Type Diagnosis Age At Onset No Information Payers Payer name Insurance type Covered alliance party ID Authoriza tion(s) [facility] CI [id number] Social History Type Description Quantity Date Captured Comments Sex Male Smoking Status No Information Chief Complaint And Reason For Visit No Information Reason For Referral Reason For Referral No Information History Of Present Illness Encounter Date Complaint History Of Prese nt Illness No Information Functional Status Date Functional Assessmen t No Information Instructions Date Instruction Additional Infor mation No Information Assessments Type Assessment Date No Information Patient Care Teams Name Effective Dates (start - stop) Status Members No Information
--- OUTSIDE RECORDS SUMMARY | 2024-12-31 12:37 | XMS_ITS | Patient Health Record ---
Author Organization [facility] Address [address] [address] Care Team Providers Care Weir Fisherman Name Role Phone Nicole Palacios Primary Care Provider [phone] Migration, Provider Unavailable Unavailable Results Component Value Reference Range Notes COMPREHENSIVE METABOLIC PANE L Reviewed date:05/31/2024 08:37:08 PM Interpretation: Performing Lab:[facility], [address] [place], [address] Gelacio Huerta MD Notes/Report: T3, FREE Reviewed date:06/01/2024 10:41:57 AM Interpretation: Performing Lab:[facility], [address] [place], [address] Gelacio Huerta MD Notes/Report: HEMOGLOBIN A1c Reviewed date:05/31/2024 08:36:39 PM Interpretation: Performing [facility], [address], [place], [address] Gelacio Huerta Notes/Report: CBC (INCLUDES DIFF/PLT) Reviewed date:05/31/2024 08:37:29 PM Interpretation: Performing Lab:[facility], [address] [place], [address] Gelacio Huerta MD Notes/Report: MICROALBUMIN, RANDOM URINE ( W/CREATININE) Reviewed date:05/31/2024 08:37:15 PM Interpretation: Performing Lab:[facility], [address] [place], [address] Gelacio Huerta MD Notes/Report: LIPID PANEL Reviewed date:05/31/2024 08:36:51 PM Interpretation: Performing Lab:[facility], [facility], [address] [place], [address] Gelacio Huerta MD Notes/Report: T4, FREE Reviewed date:05/31/2024 08:37:35 PM Interpretation: Performing Lab:[facility], [facility], [address] [place], [address] Gelacio Huerta MD Notes/Report: TSH Reviewed date:05/31/2024 08:40:29 PM Interpretation: Performing Lab:[facility], [facility], [address] [place], [address] Gelacio Huerta MD Notes/Report: TESTOSTERONE, FREE (DIALYSIS ) AND TOTAL,MS Reviewed date:05/31/2024 07:58:39 PM Interpretation: Performing Lab:[facility], [address] [place] [address], [address], [place], [address] Gray Uribe MD,PhD Notes/Report: TESTOSTERONE, TOTAL, MS 223 2-45 ng/dL For additional information, please refer to https://education.SocialCompare.Holidog/faq/MZX635 (This link is being provided for informational/educational purposes only.) (Note) This test was developed and its analytical performance characteristics have been determined by [employer]. It has not been cleared or approved by the FDA. This assay has been validated pursuant to the CLIA regulations and is used for clinical purposes. TESTOSTERONE, FREE 35.3 0.2-3.7 pg/mL (Note) This test was developed and its analytical performance characteristics have been determined by [employer]. It has not been cleared or approved by the FDA. This assay has been validated pursuant to the CLIA regulations and is used for clinical purposes. [facility] [address] [address],[address] [facility] [address] Gray Uribe MD, PhD COMPREHENSIVE METABOLIC PANE L Reviewed date:10/10/2024 05:36:43 PM Interpretation: Performing Lab:[facility], [address], [place], [address] Gelacio Huerta MD Notes/Report: FASTING:YES AN UPDATE OR CORRECTION HAS BEEN MADE TO SEX FASTING: YES HEMOGLOBIN A1c Reviewed date:10/10/2024 05:36:43 PM Interpretation: Performing Lab:[facility], [address], [place], [address] Gelacio Huerta Notes/Report: FASTING:YES AN UPDATE OR CORRECTION HAS BEEN MADE TO SEX FASTING: YES CBC (INCLUDES DIFF/PLT) Reviewed date:10/10/2024 05:36:43 PM Interpretation: Performing Lab:[facility], [address], [place], [address] Gelacio Huerta MD Notes/Report: FASTING:YES AN UPDATE OR CORRECTION HAS BEEN MADE TO SEX FASTING: YES MICROALBUMIN, RANDOM URINE ( W/CREATININE) Reviewed date:10/10/2024 05:36:43 PM Interpretation: Performing Lab:[facility], [address], [place], [address] Gelacio Huerta MD Notes/Report: FASTING:YES AN UPDATE OR CORRECTION HAS BEEN MADE TO SEX FASTING: YES LIPID PANEL Reviewed date:10/10/2024 05:36:43 PM Interpretation: Performing Lab:[facility], [address], [place], [address] Gelacio Huerta MD Notes/Report: FASTING:YES AN UPDATE OR CORRECTION HAS BEEN MADE TO SEX FASTING: YES T4, FREE Reviewed date:10/10/2024 05:36:43 PM Interpretation: Performing Lab:[facility], [address], [place], [address] Gelacio Huerta MD Notes/Report: FASTING:YES AN UPDATE OR CORRECTION HAS BEEN MADE TO SEX FASTING: YES TSH Reviewed date:10/10/2024 05:36:43 PM Interpretation: Performing Lab:[facility], [address], [place], [address] Gelacio Huerta MD Notes/Report: FASTING:YES AN UPDATE OR CORRECTION HAS BEEN MADE TO SEX FASTING: YES Reason For Referral No Information Medications Medication SIG (Take, Route, Frequency, Duration) [...] Subcutaneous weekly for 90 days 09/07/2024 Active Ozempic (0.25 or 0.5 MG/DOSE) 2 MG/3ML inject 0.25 mg SQ once weekly x 4 weeks then up to 0.5 mg once weekly with meal subcutaneously once a week for 90 days 12/19/2023 Unknown Problems Problem Type SNOMED Code ICD Code Onset Dates Problem Status W/U Status Risk Notes Problem Hyperglycemia due to type 2 diabetes mellitus (673882956141150) Type 2 diabetes mellitus with hyperglycemia (E11.65) Active confirmed Problem Hyperlipidemia (07031373) Hyperlipidemia, unspecified (E78.5) Active confirmed Problem Type II diabetes mellitus without complication (808970471) Type 2 diabetes mellitus without complications (E11.9) Active confirmed Problem Multiple myeloma in remission (41836322) 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) Active confirmed Vital Signs Heart Rate 62 /min 05/26/2024 Respiratory Rate 12 /min 05/26/2024 Blood pressure diastolic 82 mm Hg 05/26/2024 Height 72 in 05/26/2024 Blood pressure systolic 150 mm Hg 05/26/2024 Weight 220 lbs 05/26/2024 BMI 29.83 kg/m2 05/26/2024 Encounters Encounter Location Date Provider Diagnosis [facility] - Nicole Palacios [address] [place] [address] 10/20/2024 Nicole Andrews [facility] [address] [address] 07/25/2024 Provider Migration Type 2 diabetes mellitus with hyperglycemia E11.65 and Type 2 diabetes mellitus without complications E11.9 [facility] - Nicole Palacios [address] [place] [address] 05/26/2024 Nicole Palacios [facility] [address] [place] [address] 07/17/2024 Nicole Palacios Type 2 diabetes mellitus with hyperglycemia E11.65 [facility] [address] [place] [address] 09/07/2024 Nicole Palacios Type 2 diabetes mellitus with hyperglycemia E11.65 [facility] - Nicole Palacios [address] [place] [address] 05/26/2024 Nicole Palacios Type 2 diabetes mellitus without complications E11.9 ; Hyperlipidemia, unspecified E78.5 and Multiple myeloma in remission C90.01 Assessments Encounter Date Diagnosis (ICD Code) Assessment Notes Treatment Notes Treatment Clinical Notes Section Notes 07/25/2024 Type 2 diabetes mellitus with hyperglycemia (ICD-10 - E11.65) 07/25/2024 Type 2 diabetes mellitus without complications (ICD-10 - E11.9) 07/17/2024 Type 2 diabetes mellitus with hyperglycemia (ICD-10 - E11.65) 09/07/2024 Type 2 diabetes mellitus with hyperglycemia (ICD-10 - E11.65) 05/26/2024 Hyperlipidemia, unspecified (ICD-10 - E78.5) Continue statin therapy. 05/26/2024 Type 2 diabetes mellitus without complications (ICD-10 - E11.9) a1c of 6% per patient- continue ozempic 0.5 mg weekly along with farxiga as patient tolerating well. Denies any hypoglycemia and overall sugars under 130 mg/dL consistently per patient log. Discussed carb counting and how to read food labels. Recommended patient to utilize the diabetesfoodpr2go.comb.co m from the ADA website to help with food preparation as this presents ideal carb content per meal and will make carb counting easier for patient. Recommended he/she incorporate natural insulin sensitizers such as pears, apples, cinnamon, ivan and sweet potatoes to help mobilize his/her endogenous insulin. Recommended up to 150 minutes of moderate level activity /exercise per week. 05/26/2024 Multiple myeloma in remission (ICD-10 - C90.01) Follows oncology and taken off gleevec over 3 months ago and doing well off therapy. Per patient he is monitored by surgery and oncology - will email labwork to patient as I do not have any recent CMP/CBC to review. 05/26/2024 Other Spent 25 minutes preparing to see the patient (ex review of tests/chart), obtaining and / or reviewing separately obtained history, performing a medically appropriate examination and/or evaluation, counseling and educating the patient/family/car egiver, ordering medications, tests, or procedures, referring and communicating with other health care technician, documenting clinical information in the electronic or other health record, independently interpreting results and communicating results to the patient/family/car egiver and care coordinating patient plan. Patient alert and oriented x 4 and aware of discussion noted above and in agreeance to plan in management of type 2 DM, hyperlipidemia and monitoring of MM. Due to the nature of telemedicine, the ability to do physical assessment was limited to what can be accomplished by patient directed telehealth visit based on instruction. Those limits are understood by the patient and myself. Impression is based on history, available information, and physical findings accomplished with telehealth visit. Chronic disease/problem list/ medication list reviewed and updated where indicated. Discussed diagnosis, plan including risks, benefits, and options of treatment. Advised to call for new, worsening, or persistent symptoms. Level of patient risk was of moderate complexity due to the documented nature of presentation, the information assessment required and the nature of the development of an evaluation and treatment plan as documented. PMH, FHx, SHx, Surgical Hx, Quality management review carried out and addressed as documented today as part of this visit. Medication list was reviewed and adjusted as indicated. Medication requiring a refill was addressed. Risk and benefits of any new medications were discussed and all questions were answered. Plan Of Treatment No Information Insurance Providers Payer Name Payer Address Payer Phone Subscriber Number Group Number Insured Name Patient Relationship to Insured Coverage Start Date Coverage End Date Medicare [address] [address] [place] [address] [id number] MESSI WALLACE Self - patient is the insured [facility] [address] [address] [place] [address] [id number] MESSI WALLACE Self - patient is the insured
--- OUTSIDE RECORDS SUMMARY | 2024-12-31 12:37 | XMS_ITS ---
Author Organization [facility] Address [address] [place] [address] Care Team Providers Care Clearing Hand Name Role Phone Nicole Palacios Primary Care Provider [phone] REASON FOR VISIT F/U JEREMIAS Encounters Encounter Location Date Provider Diagnosis [facility] - Nicole Palacios [address] [place] [address] 10/20/2024 Nicole Palacios Plan Of Treatment No Information Progress Notes * MESSI WALLACEDOB:[birth year] (74 yo M)Acc No.[id number]:10/20/2024 Progress Notes Patient: MESSI MARTINEZ Provider: Alexandria Palacios MD :1950 A ge:73 Y S ex:Male Date:10/20/2024 [facility] Subjective: * Chief Complaints: * 1 . F/U JEREMIAS. * Medical History: Objective: * Vitals: Assessment: Plan: * Treatment: * Billing Information: * Visit Code: * Procedure Codes: * Electronic signature of Bijan Palacios MD on 12/31/2024 at 12:36 PM CDT Sign off status: Pending * Provider: Alexandria Palacios MD Date: 10/20/2024 Generated for Lucinda cope/Isabella/eTransmitting on: 12/31/2024 12:36 PM CDT
--- OUTSIDE RECORDS SUMMARY | 2024-12-31 12:37 | XMS_ITS | Encounter Summary ---
Author Organization [facility] Address 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 [employer]ER Gender Identity Not on file Sexual Orientation Not on file documented as of this encounter Plan of Treatment Upcoming Encounters Date Type Department Care Team (Late st Contact Info) Description 01/11/2025 8:40 AM CDT Appointment [facility] [address] [place] [address] Ros Sapp PA-C [address] [facility] [address] [place] [phone] 01/12/2025 9:30 AM CDT Office Visit [facility] [address] [facility] [address] [place] [address] Ros Sapp PA-C [address] [facility] [address] [place] [address] 01/13/2025 11:15 AM CDT Office Visit [facility] H[facility] - [place] [address] [facility] [address] [place] [address] Blayne Marr MD [address] [facility] [address] [place] [address] documented as of this encounter Visit Diagnoses Not on filedocumented in this encounter Care Teams Room Maid Relationship Specialty Start Date End Date Rosa Chávez MD [address] [place] [address] [place] [address] PCP - General Family Practice 03/08/23 11/01/24 documented as of this encounter
--- OUTSIDE RECORDS SUMMARY | 2024-12-31 12:37 | XMS_ITS | Continuity of Care Document ---
Author Organization [facility] Address [address] [place] [address] [place] [address] Phone Care Team Providers Care Pararescue Manager Name Role Phone Tanner Auguste MD Unavailable Unavailable Advance Directives Directive Yes / No Effective Date File Name No Information Encounters Encounter Description Practice Location Reason(s) For Visit Diagnoses Date Provider Providers Copied on Encounter [facility], [address] [place] [address] [address], [place], [place], [id number], [place] tel:[phone] [facility] [place] No Information Molina Hart. [address] [place] [address], [address], [place], [facility], [place]. tel:[phone] Referring Provider: Tanner Auguste MD S, [address] [place] [address] [address], [place], [facility]. tel:[phone] Family History Family Member Type Diagnosis Age At Onset No Information Payers Payer name Insurance type Covered alliance party ID Authoriza timike(s) [facility] CI [id number] Social History Type Description Quantity Date Captured [...]
--- OUTSIDE RECORDS SUMMARY | 2024-12-31 12:37 | XMS_ITS | Encounter Summary ---
Author Organization [facility] Address 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 Gender Identity Not on file Sexual Orientation Not on file documented as of this encounter Plan of Treatment Upcoming Encounters Date Type Department Care Team (Late st Contact Info) Description 01/11/2025 8:40 AM CDT Appointment [facility] Imaging Services [facility] [id number] [place] [address] Ros Sapp PA-C 40308 [facility] [place] [address] [place] [address] 01/12/2025 9:30 AM CDT Office Visit [facility] Surgical Specialists Zeus Ibrahim [facility] [address] [facility] [address] [place] [address] Ros Sapp PA-C [address] [facility] [address] [place] [address] 01/13/2025 11:15 AM CDT Office Visit [facility] Oncology and Hematology [facility] 2226 [facility] [address] [place] [address] Blayne Marr MD 2227 [facility] [address] [place] [address] documented as of this encounter Visit Diagnoses Diagnosis Type II or unspecified type diabetes mellitus without mention of complication, not stated as uncontrolled- Primary documented in this encounter Care Teams Web Merchant Relationship Specialty Start Date End Date Rosa Chávez MD [address] [place] [address] [place] [phone] PCP - General Family Practice 03/08/23 11/01/24 documented as of this encounter
== END 2024-12-31 11:04 | disposition home or self-care (01) ==
LOC: ANHLAB 11:06
PROVIDERS: PCP Nurse Practitioner Adult Health; Visit Provider Internal Medicine Hematology & Oncology
DX: C7B.00 Secondary carcinoid tumors, unspecified site (principal)
CPT/HCPCS: 36415; 80053; 84260; 85025; 86316

== ENCOUNTER 2025-04-12 13:43 | Outpatient (CLI) | payer MEDICARE, SELFPAY ==
--- NOTE | ~2025-04-12 | XR_ITS ---
Lumbosacral Spine: AP and lateral views Clinical History: Pain Findings: The normal lordotic curve is maintained. The vertebral bodies and posterior elements are i ntact. Mild degenerative disc changes are present throughout the lumbar spine. There is moderate to a dvanced facet arthropathy throughout the lumbar spine, worst from L3 through S1. The sacroiliac joint s are normally outlined. Impression: Moderate degenerative spondylosis overall, as above. Reviewed, dictated and finalized at location M. Impression: Moderate degenerative spondylosis overall, as above.
--- NOTE | ~2025-04-12 | XR_ITS ---
AP and lateral views of the left hip Clinical history: Pain Findings: No acute fracture or dislocation is seen. Osseous alignment is anatomic. Left hip joint is intact. Soft tissues are unremarkable. Impression: No significant abnormality is seen. Reviewed, dictated and finalized at location . Impression: No significant abnormality is seen.
--- OUTSIDE RECORDS SUMMARY | 2025-04-12 13:52 | XMS_ITS | Encounter Summary ---
Author Organization [facility] Address 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 Gender Identity Not on file Sexual Orientation Not on file documented as of this encounter Plan of Treatment Upcoming Encounters Date Type Department Care Team (Late st Contact Info) Description 07/19/2025 10:00 AM ANIMAL SHELTER CLERK Appointment [facility] Imaging Services [facility] [address] [place] [address] Ros Sapp PA-C [address] [address] 07/20/2025 9:30 AM ANIMAL SHELTER CLERK Office Visit [facility] Surgical Specialists Zeus Ibrahim [facility] [address] [facility] [address] [place] [address] Ros Sapp PA-C [address]362 [facility] [place] [address] [place] [address] 07/27/2025 11:15 AM ANIMAL SHELTER CLERK Office Visit [facility] Oncology and Hematology [facility] 2227 [facility] 200 [place] [address] Blayne Marr MD 2227 [facility] [address] [place] [address] documented as of this encounter Visit Diagnoses Not on filedocumented in this encounter Care Teams Restaurant Service Manager Relationship Specialty Start Date End Date Rosa Chávez MD [address] [place] [address] [place] [phone] PCP - General Family Practice 03/08/23 11/01/24 documented as of this encounter
--- OUTSIDE RECORDS SUMMARY | 2025-04-12 13:52 | XMS_ITS | Encounter Summary ---
Author Organization [facility] [employer] [facility] Address [address] [place] [address] Care Team Providers Care Director Of Counseling Name Role Phone Unavailable Primary Care Provider Unavailabl e Reason for Visit * Reason Comments Follow Up Cancer Encounter Details Date Type Department Care Team (Late st Contact Info) Description 04/12/2025 11:15 AM CDT Office Visit [facility] Oncology and Hematology - [facility] [facility] [address] [place] [address] Blayne Marr MD 2227 [facility] [address] [place] [address] Metastatic carcinoid tumor (CMS/HCC) (Primary Dx) Social History Tobacco Use Types Packs/Day Years Used Date Smoking Tobacco: Never Smokeless Tobacco: Never Tobacco Cessation:Counseling Given: Not Answered Alcohol Use Standard Drinks/Week Comments Never 0 (1 standard drink = 0.6 oz pur e alcohol) Sex and Gender Information Value Date Recorded Sex Assigned at Not on file Legal Sex Male 3:07 AM COIL FORMER Gender Identity Not on file Sexual Orientation Not on file documented as of this encounter Last Filed Vital Signs Vital Sign Reading Time Taken Comments Blood Pressure 139/81 04/12/2025 10:57 AM CDT Pulse 68 04/12/2025 10:57 AM CDT Temperature 36.7 C (98.1 F) 04/12/2025 10:57 AM CDT Respiratory Rate 15 04/12/2025 10:57 AM CDT Oxygen Saturation 98% 04/12/2025 10:57 AM CDT Inhaled Oxygen Concentration - - Weight 97.3 kg (214 lb 9.6 oz) 04/12/2025 10:57 AM CDT Height - - Body Mass Index 29.1 01/12/2025 9:22 AM CDT documented in this encounter Progress Notes * Blayne Marr MD - 04/12/2025 11:20 AM CDT HEMATOLOGY / ONCOLOGY PROGRESS NOTE Patient Identification: Name: Manuel Mata Age: 74 y.o. Sex: male : 1950 DIAGNOSIS Metastatic neuroendocrine tumor with liver metastasis. Status post CT-guided mesenteric mass biopsyon October 18, 2020 that showed well-differentiated neuroendocrine tumor grade 2 MGUS CURRENT TREATMENT Surveillance TREATMENT HISTORY Status post exploratory laparotomy, ileocolectomy and partial hepatectomy done on March 15, 2023. Monthly octreotide started on November 18, 2020. Octreotide has been on hold since December 10, 2023 due to renal insufficiency SUBJECTIVE Patient came to the office for follow-up visit. He denies any diarrhea and constipation. Denies anyabdominal pain and cramping. Has been having some left hip pain radiating to the left lower extremity started just recently. Denies any fall and injury. No other new complaints. Review of system Constitutional: denies fevers, sweats, denies any tiredness and fatigue, weight and appetite stableHEENT: denies sinus congestion, hearing or vision problems Respiratory: denies cough, dyspnea, wheeze Cardiovascular: denies chest pain, exertional chest pressure/discomfort, nausea, syncope, shortnessof breath GI: denies constipation, dsyphagia, reflux symptoms, vomiting, melena, denies any diarrhea : denies dysuria, frequency, incontinence, urgency Integumentary system: no lymphadenopathy, sweats, flushing Musculoskeletal: denies: myalgia, complain of left hip pain Neurological: denies blurry or disturbed vision, numbness/weakness, dizziness Skin: No lumps, bumps or rashes. 12 point review of system was reviewed Objective: Vital signs in last 24 hours: As per nursing note Exam: General appearance: alert, cooperative, no distress, appears stated age Head: normocephalic, without obvious abnormality, atraumatic Eyes: conjunctivae/corneas clear, EOM's intact Ears: normal external ear canals AU Nose: Nares normal. Septum midline. Mucosa normal. No drainage or sinus tenderness Throat: Lips, mucosa, and tongue normal. Teeth and gums normal Neck: supple, symmetrical, trachea midline. Lungs: clear to auscultation bilaterally Heart: regular rate and rhythm, S1, S2 normal, no murmur, click, rub or gallop Abdomen: soft, non-tender. Bowel sounds normal. No masses, No organomegaly Extremities: extremities normal, atraumatic, no cyanosis or edema Skin: Skin color, texture, turgor normal. No rashes or lesions Lymph nodes: No lymphadenopathy Neuro: No obvious focal deficit Exam as above PATH FINAL DIAGNOSIS Gallbladder, cholecystectomy -Gallbladder with no histopathologic abnormality -1 lymph node with no evidence of malignancy Small and large intestine, ileocolectomy - Neuroendocrine tumor, multifocal, grade 2, extending into and through the muscularis propria -Appendix with fibrous obliteration of the lumen - Metastatic neuroendocrine tumor in 4 lymph nodes (4/8) - See synoptic Liver, partial hepatectomy -Metastatic neuroendocrine tumor, multiple foci, some with the appearance of treatment effect Lymph node, mesenteric, excision -Metastatic neuroendocrine tumor in 1 lymph node (09/09) Liver, second specimen segment 5, partial hepatectomy -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 Labs from September 1920 showed hemoglobin 14.6 AST 31 ALT 28 creatinine 1.4 serotonin 1802 kappa lambda light chain ratio 1.24 serum protein electrophoresis showed no monoclonal protein immunoglobulinnormal. Labs from February 10 showed WBC 8.2 hemoglobin 15 platelet 206,000 AST 37 ALT 30 ferritin pending Labs from May 05 showed WBC 6.7 hemoglobin 15 platelet 217,000 creatinine 1.5 AST 32 ALT 29 B12 more than 1000 Labs from July 07 showed creatinine 1.7 vitamin B12 more than 1000 total bilirubin 0.5 last ferritin level was checked February 10 was 1513 down from 1802. Labs from October 27 showed kappa light chain 43.2 lambda light chain 34.0 ratio 1.27 ferritin 612chromogranin 1100 Labs from February 23 showed creatinine 2.3 Labs from May 16 showed WBC 7.3 hemoglobin 14.4 platelet 195,000 creatinine 1.8 serotonin and chromogranin level pending Labs from August 2022 showed chromogranin 1719 and serotonin 629. Labs from December 04 showed creatinine 2.1 total bilirubin 0.7 vitamin B12 404 WBC 7.6 hemoglobin 14.6 platelet 193,000 Labs from July 23 showed WBC 7.3 hemoglobin 13.3 platelet 1 96,000 creatinine 1.9 Chromogranin 348 serotonin 117 Labs from September 17 showed WBC 6.7 hemoglobin 12.9 platelet 1 78,000 creatinine 2.2 Labs from December 09 showed hemoglobin 13.4 creatinine 3.1 GFR 20 serotonin 217 vitamin B12 208 Labs from March 30 showed kappa light chain 46 lambda light chain 34 ratio 1.3 serotonin 156 creatinine 1.9 GFR 35 calcium 9.4 vitamin B12 more than 1000 immunoglobulin levels normal serum protein electrophoresis showed no monoclonal spike WBC 7.7 hemoglobin 13.7 platelet 170,000 Labs from July 22 showed creatinine 2.0 GFR 33 B12 more than 1000 hemoglobin 14.1 chromogranin 803 serotonin 202 Labs from October 09 showed creatinine 1.8 GFR 39 total bilirubin 0.9 WBC 6.1 hemoglobin 13.9 platelet count 180,000 serotonin 203 chromogranin 617 Labs from December 31 showed hemoglobin 13.7 creatinine 1.9 serotonin 170 chromogranin 923 Labs from March 29 showed creatinine 2.0 GFR 33 chromogranin 267 serotonin 142 WBC 7 hemoglobin 14.7platelet 1 61,000 Assessment: Plan: Patient Active Problem List Diagnosis Date Noted Type 2 diabetes mellitus, with long-term current use of insulin (CMS/HCC) 03/15/2023 Benign hypertension 03/15/2023 CKD (chronic kidney disease) 03/15/2023 Other immunodeficiencies with predominantly antibody defects 08/16/2020 Metastatic carcinoid tumor (CMS/HCC) 08/16/2020 Monoclonal (M) protein disease, multiple 'M' protein 08/31/2019 Broken wrist Overview Note: Left Arm Metastatic neuroendocrine cancer with metastatic liver involvement status post PET dotatate scan done in May 2020 and MRI of the l abdomen and pelvis done in June [address]. [address]-guidedbiopsy of mesenteric mass done on October 18, 2020 that showed well-differentiated neuroendocrine tumor grade 2. Serotonin level came back elevated at 1802. Patient started monthly octreotide injection on November 18, 2020. PET dotatate scan done on October 29 showed stable finding with some shrinkage of the mesenteric mass. Status post exploratory laparotomy, ileocolectomy and partial hepatectomy done on March 15, 2023. Pathology report showed metastatic neuroendocrine tumor in 4 out of 8 lymph node with metastatic Neuroendocrine tumor multifocal disease in the liver. Patient restarted octreotide injection on April 19, 2023. Octreotide was placed on hold in December 2023 due to renal insufficiency. MRI abdomen done on January 11, 2025 showed no evidence of recurrence of the disease. Labs showed improvement in the chromogranin and serotonin levels. Patient is asymptomatic. He is going to have MRI abdomen done on July 15. I will follow- up with him after that. Labs will be done on return to clinic. Vitamin B12 deficiency. Stable. Continue vitamin B12 on the weekends. Chronic kidney stage III disease. Stable. Hypertension. Stable. Left hip pain. He will follow-up with the primary care physician. He is taking Tylenol. Follow-up in 3 months. 04/12/2025 Blayne Marr MD documented in this encounter Plan of Treatment Upcoming Encounters Date Type Department Care Team (Late st Contact Info) Description 07/19/2025 10:00 AM COIL FORMER Appointment [facility] Imaging Services [facility] [address] [place] [address] Ros Sapp PA-C [address] [address] 07/20/2025 9:30 AM COIL FORMER Office Visit [facility] Surgical Specialists Zeus Ibrahim [facility] [address] [facility] [address] [place] [address] Ros Sapp PA-C [address] [address] 07/27/2025 11:15 AM COIL FORMER Office Visit [facility] Oncology and Hematology [facility] 2227 [facility] [address] [place] [address] Blayne Marr MD 2227 [facility] [address] [place] [address] Scheduled Orders Name Type Priority Associated Diagnoses Orde r Schedule CBC WITH DIFFERENTIAL Lab Stat Metastatic carcinoid tumor (CMS/HCC) Expected: 07/05/2025, Expires: 04/12/2026 COMPREHENSIVE METABOLIC PANEL Lab Stat Metastatic carcinoid tumor (CMS/HCC) Expected: 07/05/2025, Expires: 04/12/2026 SEROTONIN LEVEL Lab Routine Metastatic carcinoid tumor (CMS/HCC) Expected: 07/05/2025, Expires: 04/12/2026 CHROMOGRANIN A Lab Routine Metastatic carcinoid tumor (CMS/HCC) Expected: 07/05/2025, Expires: 04/12/2026 documented as of this encounter Visit Diagnoses Diagnosis Metastatic carcinoid tumor (CMS/HCC)- Primary documented in this encounter
--- OUTSIDE RECORDS SUMMARY | 2025-04-12 13:52 | XMS_ITS | Encounter Summary ---
Author Organization [facility] Address [address] [place] [address] Care Team Providers Care Hand Box Coverer Name Role Phone Rosa Chávez MD Primary [...] on file Legal Sex Male 3:07 AM BSS SOLUTION ARCHITECT Gender Identity Not on file Sexual Orientation Not on file documented as of this encounter Plan of Treatment Upcoming Encounters Date Type Department Care Team (Late st Contact Info) Description 07/19/2025 10:00 AM BSS SOLUTION ARCHITECT Appointment [facility] Imaging Services [place] [phone] Ros Sapp PA-C [address] [place] [address] 07/20/2025 9:30 AM BSS SOLUTION ARCHITECT Office Visit [facility] Surgical Specialists [facility] [address] [facility] [address] [place] [address] Ros Sapp PA-C [address] [facility] [address] [place] [address] 07/27/2025 11:15 AM BSS SOLUTION ARCHITECT Office Visit [facility] Oncology and Hematology [facility] 2226 [facility] 200 [place] [address] Blayne Marr MD 2227 [facility] [address] [place] [address] documented as of this encounter Visit Diagnoses Not on filedocumented in this encounter Care Teams Hand Box Coverer Relationship Specialty Start Date End Date Rosa Chávez MD [address] [place] [address] [place] [address] PCP - General Family Practice 03/08/23 11/01/24 documented as of this encounter
--- OUTSIDE RECORDS SUMMARY | 2025-04-12 13:52 | XMS_ITS | Encounter Summary ---
Author Organization [facility] Address [address] [place] [address] Care Team Providers Care Pattern Carrier Name Role Phone Rosa Chávez MD Primary Care Provider + Encounter Details Date Type Department Care Team (Late st Contact Info) Description 06/26/2000 Outpatient Historical [facility] MD Yifan GARCIA, Zeus Sanchez MD [address] [place] [address] Social History Tobacco Use Types Packs/Day Years Used Date Smoking Tobacco: Never Assessed Sex and Gender Information Value Date Recorded Sex Assigned at Not on file Legal Sex Male 3:07 AM MICA SPREADER Gender Identity Not on file Sexual Orientation Not on file documented as of this encounter Plan of Treatment Upcoming Encounters Date Type Department Care Team (Late st Contact Info) Description 07/19/2025 10:00 AM MICA SPREADER Appointment [facility] Imaging Services [facility] [address] [place] [address] Ros Sapp PA-C [address] [address] 07/20/2025 9:30 AM MICA SPREADER Office Visit [facility] Surgical Specialists Zeus Ibrahim [facility] [address] [facility] [address] [place] [address] Ros Sapp PA-C [address] [facility] [address] [place] [address] 07/27/2025 11:15 AM MICA SPREADER Office Visit [facility] Oncology and Hematology [facility] 2227 [facility] 200 [place] [address] Blayne Marr MD 2227 [facility] [address] [place] [address] documented as of this encounter Visit Diagnoses Not on filedocumented in this encounter Care Teams Pattern Carrier Relationship Specialty Start Date End Date Rosa Chávze MD [address] [place] [address] [place] [address] PCP - General Family Practice 03/08/23 11/01/24 documented as of this encounter
--- OUTSIDE RECORDS SUMMARY | 2025-04-12 13:52 | XMS_ITS | Encounter Summary ---
Author Organization [facility] Address [address] [place] [address] Phone Care Team Providers Care Awning Maker And Installer Name Role Phone Carline Lu NP Primary Care Provider [phone] Reason for Visit * Reason Comments Med Refill Encounter Details Date Type Department Care Team (Late st Contact Info) Description 04/16/2022 Refill [facility] Nephrology and Hypertension [address] [place] [address], [address] [place] [address] Luis Kaminski MD [address] [facility], [address] [place] [address] Social History Tobacco Use Types Packs/Day Years Used Date Smoking Tobacco: Never Smokeless Tobacco: Never Alcohol Use Standard Drinks/Week Comments No 0 (1 standard drink = 0.6 oz pur e alcohol) Sex and Gender Information Value Date Recorded Sex Assigned at Not on file Legal Sex Male 7:21 AM [facility] Gender Identity Not on file Sexual Orientation Not on file documented as of this encounter Plan of Treatment Not on file documented as of this encounter Visit Diagnoses Not on filedocumented in this encounter Care Teams Awning Maker And Installer Relationship Specialty Start Date End Date Carline Lu NP [facility] [place] [phone] PCP - General Internal Medicine 05/25/19 documented as of this encounter
--- OUTSIDE RECORDS SUMMARY | 2025-04-12 13:52 | XMS_ITS | Encounter Summary ---
Author Organization [facility] Address [address] [place] [address] Care Team Providers Care Front Desk Associate Name Role Phone Rosa Chávez MD Primary Care Provider + Encounter Details Date Type Department Care Team (Late st Contact Info) Description 07/18/1998 Outpatient Historical [facility] LAB,NON-PATIENT Natalya Brown MD Social History Tobacco Use Types Packs/Day Years Used Date Smoking Tobacco: Never Assessed Sex and Gender Information Value Date Recorded Sex Assigned at Not on file Legal Sex Male 3:07 AM RETAIL SALES VITAMIN CONSULTANT Gender Identity Not on file Sexual Orientation Not on file documented as of this encounter Plan of Treatment Upcoming Encounters Date Type Department Care Team (Late Contact Info) Description 07/19/2025 10:00 AM RETAIL SALES VITAMIN CONSULTANT Appointment [facility] Imaging Services [address] [address] Ros Sapp PA-C [id number] [place] [address] 07/20/2025 9:30 AM RETAIL SALES VITAMIN CONSULTANT Office Visit [facility] Surgical Specialists [facility] [address] [facility] [address] [place] [address] Ros Sapp PA-C [address] [facility] [address] [place] [address] 07/27/2025 11:15 AM RETAIL SALES VITAMIN CONSULTANT Office Visit [facility] Oncology and Hematology [facility] 2226 [facility] 200 [place] [address] Blayne Marr MD 2227 [facility] [address] [place] [address] documented as of this encounter Visit Diagnoses Not on filedocumented in this encounter Care Teams Front Desk Associate Relationship Specialty Start Date End Date Rosa Chávez MD [address] [place] [address] [place] [phone] PCP - General Family Practice 03/08/23 11/01/24 documented as of this encounter
--- OUTSIDE RECORDS SUMMARY | 2025-04-12 13:52 | XMS_ITS | Encounter Summary ---
Author Organization [facility] Address [address] [place] [address] Care Team Providers Care Java J2Ee Lead Name Role Phone Rosa Chávez MD Primary Care Provider + Encounter Details Date Type Department Care Team (Late st Contact Info) Description 02/21/2000 Outpatient Historical [facility] Zeus Saha MD [address] [place] [phone] Social History Tobacco Use Types Packs/Day Years Used Date Smoking Tobacco: Never Assessed Sex and Gender Information Value Date Recorded Sex Assigned at Not on file Legal Sex Male 3:07 AM OSD CLERK Gender Identity Not on file Sexual Orientation Not on file documented as of this encounter Plan of Treatment Upcoming Encounters Date Type Department Care Team (Late st Contact Info) Description 07/19/2025 10:00 AM OSD CLERK Appointment [facility] Imaging Services [facility] [address] [place] [address] Ros Sapp PA-C [address] [address] 07/20/2025 9:30 AM OSD CLERK Office Visit [facility] Surgical Specialists Zeus Ibrahim [facility] [address] [facility] [address] [place] [address] Ros Sapp PA-C [address]992 [facility] [address] [place] [address] 07/27/2025 11:15 AM OSD CLERK Office Visit [facility] Oncology and Hematology [facility] 2[address] [facility] 200 [place] [address] Blayne Marr MD [address] [facility] [address] [place] [address] documented as of this encounter Visit Diagnoses Not on filedocumented in this encounter Care Teams Java J2Ee Lead Relationship Specialty Start Date End Date Rosa Chávez MD [address] [place] [address] [place] [phone] PCP - General Family Practice 03/08/23 11/01/24 documented as of this encounter
--- OUTSIDE RECORDS SUMMARY | 2025-04-12 13:52 | XMS_ITS | Clinical Summary ---
Author Organization [facility] Address [address] [place] [address] Phone Care Team Providers Care Engagement Mgr Name Role Phone Carline Lu NP Primary Care Provider [phone] Allergies No known active allergies Medications hydroCHLOROthiaz [...] on file Legal Sex Male 7:[address] [facility] Gender Identity Not on file Sexual Orientation Not on file Last Filed Vital Signs Vital Sign Reading Time Taken Comments Blood Pressure 136/80 10/14/2019 10:52 AM ENVIRONMENTAL HEALTH INSPECTOR Pulse 84 10/14/2019 10:52 AM ENVIRONMENTAL HEALTH INSPECTOR Temperature 36.4 C (97.5 F) 10/14/2019 10:52 AM ENVIRONMENTAL HEALTH INSPECTOR Respiratory Rate - - Oxygen Saturation - - Inhaled Oxygen Concentration - - Weight 105 kg (232 lb) 10/14/2019 10:52 AM ENVIRONMENTAL HEALTH INSPECTOR Height 182.9 cm (6') 10/14/2019 10:52 AM ENVIRONMENTAL HEALTH INSPECTOR Body Mass Index 31.46 10/14/2019 10:52 AM ENVIRONMENTAL HEALTH INSPECTOR Plan of Treatment Health Maintenance Due Date Last Done Comments Pneumococcal PPSV23/PCV13 65 + Years / Low and Medium Risk (3 of 3 - PCV20 or PCV21) 09/07/2019 09/07/2014, 2007 Influenza Vaccine (#1) 2025 06/29/2013, 2009 Insurance MEDICARE [facility] YAMIL BADILLO [id number] Care Teams Engagement Mgr Relationship Specialty Start Date End Date Carline Lu NP [facility] [place] [address] PCP - General Internal Medicine 05/25/19
--- OUTSIDE RECORDS SUMMARY | 2025-04-12 13:52 | XMS_ITS | Encounter Summary ---
Author Organization [facility] Address [address] [place] [address] Care Team Providers Care Employment Legal Assistant Name Role Phone Rosa Chávez MD Primary Care Provider + Encounter Details Date Type Department Care Team (Late st Contact Info) Description 04/24/2000 Outpatient Historical [facility] Yifan GARCIA, Zeus Sanchez MD [address] [place] [address] Social History Tobacco Use Types Packs/Day Years Used Date Smoking Tobacco: Never Assessed Sex and Gender Information Value Date Recorded Sex Assigned at Not on file Legal Sex Male 3:07 AM CDL BULK DRIVER Gender Identity Not on file Sexual Orientation Not on file documented as of this encounter Plan of Treatment Upcoming Encounters Date Type Department Care Team (Late st Contact Info) Description 07/19/2025 10:00 AM CDL BULK DRIVER Appointment [facility] Imaging Services [facility] [address] [place] [address] Ros Sapp PA-C [address] [address] 07/20/2025 9:30 AM CDL BULK DRIVER Office Visit [facility] Zeus Ibrahim [facility] [address] [facility] [address] [place] [address] Ros Sapp PA-C [address] [facility] [address] [place] [address] 07/27/2025 11:15 AM CDL BULK DRIVER Office Visit [facility] Oncology and Hematology [facility] 2227 [facility] 200 [place] [address] Blayne Marr MD 2227 [facility] [place] [facility] [address] [place] [address] documented as of this encounter Visit Diagnoses Not on filedocumented in this encounter Care Teams Employment Legal Assistant Relationship Specialty Start Date End Date Rosa Chávez MD [address] [place] [address] [place] [phone] PCP - General Family Practice 03/08/23 11/01/24 documented as of this encounter
--- OUTSIDE RECORDS SUMMARY | 2025-04-12 13:52 | XMS_ITS | Clinical Summary ---
Author Organization [facility] Address [address] [place] [address] Phone Care Team Providers Care Librarian School Name Role Phone Unavailable Primary Care Provider [...] mouth 2 times daily with meals. Active OCTREOTIDE ACETATE INJECTION by Injection route every 30 days. 20 mg vial ONCE A MONTH Active Active Problems Problem Noted Date Diagnosed Date Type 2 diabetes mellitus, wi th long-term current use of insulin 03/15/2023 Benign hypertension 03/15/2023 CKD (chronic kidney disease) 03/15/2023 Other immunodeficiencies wit h predominantly antibody defects 08/16/2020 Metastatic carcinoid tumor 08/16/2020 Monoclonal (M) protein disease, multiple 'M' pro tein 08/31/2019 Broken wrist Overview (08/31/2019): Left Arm Encounters Date Type Department Care Team Description 04/12/2025 11:15 AM CDT Office Visit [facility] Oncology and Hematology [facility] Jacqueline Mayer [address] [place] [address] Blayne Marr MD Metastatic carcinoid tumor (CMS/HCC) (Primary Dx) 04/01/2025 Orders Only [facility] Oncology and Hematology [facility] Jacqueline Mayer [address] [place] [address] Blayne Marr MD 03/24/2025 External Device Data STL ABSTRACTION Provider, Abstract 03/23/2025 External Device Data STL ABSTRACTION Provider, Abstract 02/24/2025 External Device Data STL ABSTRACTION Provider, Abstract 02/23/2025 External Device Data STL ABSTRACTION Provider, Abstract 02/09/2025 External Device Data STL ABSTRACTION Provider, Abstract 01/28/2025 External Device Data STL ABSTRACTION Provider, Abstract 01/13/2025 11:15 AM CDT Office Visit [facility] Oncology and Hematology [facility] Abdirashid [address] [place] [address] Blayne Marr MD Metastatic carcinoid tumor (CMS/HCC) (Primary Dx) 01/12/2025 9:30 AM CDT Office Visit [facility] Surgical Specialists Zeus Ibrahim [facility] [address] [facility] [address] [place] [address] Ros Sapp PA-C Metastatic carcinoid tumor (CMS/HCC) (Primary Dx) 01/12/2025 Orders Only [facility] Oncology and Hematology - [facility] [address] Tamar [address] [place] [address] Blayne Marr MD 01/11/2025 8:18 AM CDT - 01/11/2025 11:59 PM CDT Hospital Encounter [facility] Imaging Services [facility] [address] [place] [address] Ros Sapp PA-C Discharge Disposition: Home or Self Care from Last 3 Months Family History Medical [...] on file Legal Sex Male 3:07 AM VOIP ENGINEER Gender Identity Not on file Sexual Orientation [...] 9.6 oz) 04/12/2025 10:57 AM CDT Height 182.9 cm (6') 01/12/2025 9:22 AM CDT Body Mass Index 29.1 01/12/2025 9:22 AM CDT Plan of Treatment Upcoming Encounters Date Type Department Care Team (Late st Contact Info) Description 07/19/2025 10:00 AM VOIP ENGINEER Appointment [facility] Imaging Services [facility] [address] [place], [place] [address] Ros Sapp PA-C [address] [place] [address] 07/20/2025 9:30 AM VOIP ENGINEER Office Visit [facility] Surgical Specialists [facility] [address] [facility] [address] [place] [address] Ros Sapp PA-C [address] [address] 07/27/2025 11:15 AM VOIP ENGINEER Office Visit [facility] Oncology and Hematology - [facility] [address] Tamar [address] [place] [address] Blayne Marr MD 2227 [facility] [address] [place] [address] Health Maintenance Due Date Last Done Comments DIABETES ANNUAL FOOT EXAM 1966 DIABETES MICROALBUMIN ANNUAL SCREEN 1966 LDL CHOLESTEROL ANNUAL 1966 ZOSTER VACCINE (1 of 2) 11/20/1967 DTAP/TDAP/TD VACCINES (3 - T d or Tdap) 09/09/2023 09/09/2013, 09/20/2010 RSV VACCINE (60+ or ) (1 - 1-dose 75+ series) 11/20/2023 Traditional Medicare (ACO) A nnual Wellness Visit 07/23/2024 07/22/2023 DIABETES HBA1C Q 6 MONTHS 04/08/20252024, 05/27/2024, 12/26/2023, Additional history exists INFLUENZA VACCINE (#1) 2025 , 07/25/2020, 06/30/2019, Additional history exists DIABETES ANNUAL RETINAL EXAM 11/10/202512/2024, 07/21/2024, 03/30/2024, Additional history exists COLORECTAL SCREENING Discontinued 09/08/2020, 09/08/2020, 04/16/2016, Additional history exists Colorectal Cancer Screening Discontinued PNEUMOCOCCAL VACCINE 50+ YEARS Completed 0 01/15/2023, 09/07/2014, 07/21/2008 FIT-DNA Q 3 years Discontinued FIT/FOBT Q 1 year Discontinued Flex Sig/CT Colonography Q 5 years Discontinued Medical Devices Implanted Type Area Criminal Intelligence Analyst Device Identifier Shelf Expiration Date Model / Serial / Lot Barrier Seprafilm 5x6in [id number] - [id number] Implanted:Qty : 2 on 03/15/2023 by Ming Ayala MD at [facility] Adhesion Barrier N/A: Abdomen [employer] 03/26/2025 [id number] / / [id number] - [id number] Implanted:Qty : 1 on 06/06/2009 at [facility] Left: Shoulder [employer] 11/07/2013 [id number] / [id number] / [id number] Description:Rotator Cuff Abdirizak ckanchor Clip Ligating Horizon Med Ti [id number] - [facility] - [id number] Implanted:Qty : 1 on 03/15/2023 by Ming Ayala MD at [facility] Clip N/A: Abdomen TELEFLEX- WECK CLOSURE SYS 10/23/2027 [id number] / / [id number] Clip Ligating Horizon Ti 24 [id number] - [id number] Implanted:Qty : 1 on 03/15/2023 by Ming Ayala MD at [facility] N/A: Abdomen TELEFLEX- WECK CLOSURE SYS 12/24/2027 [id number] / / [id number] Clip Ligating Horizon Lg Ti [id number] - [facility] - [id number] Implanted:Qty : 1 on 03/15/2023 by Ming Ayala MD at [facility] N/A: Abdomen TELEFLEX- WECK CLOSURE SYS 12/05/2027 [id number] / / [id number] Clip Ligating Horizon Lg Ti [id number] - Csc - [id number] Implanted:Qty : 2 on 03/15/2023 by Ming Ayala MD at [facility] N/A: Abdomen TELEFLEX- WECK CLOSURE SYS 07/16/2027 [id number] / / [id number] Clip Ligating Horizon Lg Ti [id number] - Csc - [id number] Implanted:Qty : 1 on 03/15/2023 by Ming Ayala MD at [facility] N/A: Abdomen TELEFLEX- WECK CLOSURE SYS 06/18/2026 [id number] / / [id number] Hemostat Surg Snow 2x4in 2081 [id number] Implanted:Qty : 3 on 03/15/2023 by Ming Ayala MD at [facility] Hemostatic N/A: Abdomen J[employer] [id number] 10/09/2024 2082 / / [id number] Procedures Procedure Name Priority Date/Time Associated Diagnosis Comments CHROMOGRANIN A Routine 03/29/2025 2:23 PM CDT COMPREHENSIVE METABOLIC PANEL Routine 03/29/2025 1:41 PM CDT SEROTONIN LEVEL Routine 03/29/2025 1:05 PM CDT MRI ABDOMEN W WO CONTRAST Routine 01/11/2025 9:18 AM CDT Metastatic carcinoid tumor (CMS/HCC) COLONOSCOPY REPORT 09/08/2020 11 :11 AM VOIP ENGINEER from Last 3 Months or Most Recently Relevant to Health Maintenance Results * CHROMOGRANIN A (03/29/2025 2:23 PM CDT) Blood us Blayne Marr MD CHEMISTRY ORDERABLES Final Resu lt * COMPREHENSIVE METABOLIC PANEL (03/29/2025 1:41 PM CDT) Blood us Blayne Marr MD CHEMISTRY ORDERABLES Final Resu lt * SEROTONIN LEVEL (03/29/2025 1:05 PM CDT) Blood us Blayne Marr MD CHEMISTRY ORDERABLES Final Resu lt * MRI ABDOMEN W WO CONTRAST (01/11/2025 9:18 AM CDT) Anatomical Region Laterality Modality Abdomen Magnetic Resonan ce 01/11/2025 9:18 AM CDT Impressions 01/11/2025 11:20 AM CDT IMPRESSION: 1. No evidence of residual or recurrent disease. DICTATION LOCATION: Location [address] [place] [address] Narrative 01/11/2025 11:20 AM CDT MAGNETIC RESONANCE IMAGING OF THE ABDOMEN WITH AND WITHOUT IV CONTRAST DATE: 01/11/2025 9:18 AM HISTORY: Metastatic carcinoid tumor, Liver lesion, monitoring COMPARISON: 07/07/2024 TECHNIQUE: Multiplanar and multisequential images of the abdomen were obtained prior to and following the uneventful administration of 20 ml MultiHance according to MR liver protocol. FINDINGS: No significant hepatic steatosis is identified. No focal liver lesion. No abnormal postcontrast enhancement present. The gallbladder is absent. The pancreas demonstrates normal signal intensity without ductal dilation or mass. The spleen is normal. The adrenal glands are normal. Small 5 mm simple left inferior pole renal cyst present. Limited views the upper abdomen are normal. Procedure Note Royce Magana MD - 01/11/2025 MAGNETIC RESONANCE IMAGING OF THE ABDOMEN WITH AND WITHOUT IV CONTRAST DATE: 01/11/2025 9:18 AM HISTORY: Metastatic carcinoid tumor, Liver lesion, monitoring COMPARISON: 07/07/2024 TECHNIQUE: Multiplanar and multisequential images of the abdomen were obtained prior to and following the uneventful administration of 20 ml MultiHance according to MR liver protocol. FINDINGS: No significant hepatic steatosis is identified. No focal liver lesion. No abnormal postcontrast enhancement present. The gallbladder is absent. The pancreas demonstrates normal signal intensity without ductal dilation or mass. The spleen is normal. The adrenal glands are normal. Small 5 mm simple left inferior pole renal cyst present. Limited views the upper abdomen are normal. IMPRESSION: 1. No evidence of residual or recurrent disease. DICTATION LOCATION: Location 7 - [facility] us Ros Sapp PA-C MR ORDERABLES Final Result * COLONOSCOPY REPORT (09/08/2020 11:11 AM VOIP ENGINEER) Narrative Procedure Note Noel Pathak MD - 09/08/2020 11:10 AM CST [facility] Endoscopy Patient Name: Manuel Mata Procedure Date: [...] for surveillance. Procedure Code(s): --- Professional --- 79236, Colonoscopy, flexible; with removal of tumor(s), polyp(s), or other lesion(s) by snare technique CPT copyright 2018 [employer]. All rights reserved. The codes documented in this report are preliminary and upon church history teacher review may be revised to meet current compliance requirements. Noel Pathak MD 09/08/2020 11:10:17 AM This report has been signed electronically. Number of Addenda: [id number] [place] [address] Noel Pathak MD GI PROCEDURE ORDERABLES Final Result from Last 3 Months or Most Recently Relevant to Health Maintenance [place] [address] MEDICARE PART A AND B [facility] MEDICARE PART A AND B BCBS SUPP RX [facility] [place] [address] Advance Directives For more information, please contact: [phone] Documents on File Type Date Recorded Patient Photographic Aide Expl anation Advance Directive Living Will 06/02/2009 [...]
--- OUTSIDE RECORDS SUMMARY | 2025-04-12 13:52 | XMS_ITS | Encounter Summary ---
Author Organization [facility] Address [address] [place] [address] Phone Care Team Providers Care Outreach Educator Name Role Phone Carline Lu NP Primary Care Provider Reason for Visit * Reason Comments Med Refill Encounter Details Date Type Department Care Team (Late st Contact Info) Description 07/30/2022 Refill [facility] Nephrology and Hypertension [address] [place] [address], [address] [place] [address] Luis Kaminski MD [address] [facility], [address] [place] [address] Social History Tobacco Use Types Packs/Day Years [...] on filedocumented in this encounter Care Teams Outreach Educator Relationship Specialty Start Date End Date Carline Lu NP [address] [place] [address] [address] [facility] [place] [phone] PCP - General Internal Medicine 05/25/19 documented as of this encounter
--- OUTSIDE RECORDS SUMMARY | 2025-04-12 13:52 | XMS_ITS | Encounter Summary ---
Author Organization [facility] Address [address] [place] [address] Care Team Providers Care Product Planner Name Role Phone Rosa Chávez MD Primary [...] on file Legal Sex Male 3:07 AM TECHNICAL MGR Gender Identity Not on file Sexual Orientation Not on file documented as of this encounter Plan of Treatment Upcoming Encounters Date Type Department Care Team (Late st Contact Info) Description 07/19/2025 10:00 AM TECHNICAL MGR Appointment [facility] Imaging Services [facility] [address] [place] [address] Ros Sapp PA-C [address] [facility] [address] [place] [address] 07/20/2025 9:30 AM TECHNICAL MGR Office Visit [facility] Surgical Specialists Zeus Ibrahim [facility] [address] [facility] [address] [place] [phone] Ros Sapp PA-C [address] [facility] [address] [place] [address] 07/27/2025 11:15 AM TECHNICAL MGR Office Visit [facility] Oncology and Hematology [facility] 2227 [facility] 200 [place] [address] Blayne Marr MD 2[address] [facility] [address] [place] [address] documented as of this encounter Visit Diagnoses Diagnosis Type II or unspecified type diabetes mellitus without mention of complication, not stated as uncontrolled- Primary documented in this encounter Care Teams Product Planner Relationship Specialty Start Date End Date Rosa Chávez MD [address] [place] [address] [place] [phone] PCP - General Family Practice 03/08/23 11/01/24 documented as of this encounter
--- OUTSIDE RECORDS SUMMARY | 2025-04-12 13:52 | XMS_ITS | Continuity of Care Document ---
Author Name [facility] Organization [facility] Care Team Providers Care Student Financial Aid Manager Name Role Phone [facility] Unavailable Unavailable Problems Combined list of problems from [facility] and [facility] facilities. It does not include entries that were removed or entered in error. Problem Status Onset Date Problem Type Date of Resolution Comments Source Benign hypertension Active Condition [facility] Cataract Active Condition [facility] Diabetes mellitus Active Condition [facility] Hyperlipidemia Active Condition [facility] Medications Combined list of outpatient medications from [facility] and [facility] facilities.Medications provided include 1) outpatient medications from the last 15 months, and 2) patient-reported medications. Medication Details Route Status Patient Instructions Prescription Expires Prescription Number Last Dispense Date Ordering Provider Order Date Order Qty Source BRIMONIDINE TARTRATE 0.15% SOLN,OPH INSTILL 1 DROP IN BOTH EYES TWICE A DAY OPHTHA [facility] CHONDROITIN SULFATE CAP/TAB TAKE 1 CAP/TAB BY MOUTH TWICE A DAY ORAL [facility]IVE [facility] COENZYME Q10 CAP/TAB TAKE 1 CAP/TAB BY MOUTH ONCE A DAY ORAL [facility]IVE [facility] 2013 [facility] FISH OIL 1000MG (500MG DHA/EPA) CAP,ORAL TAKE BY MOUTH THREE TIMES A DAY [facility]AL ACTIVE [facility] Kavin 2013 [facility] GLIMEPIRIDE 4MG TAB TAKE ONE TABLET BY MOUTH QAM [facility]AL [facility] Kavin 2013 [facility] GLUCOSAMINE CAP/TAB TAKE 1 CAP/TAB BY MOUTH ONCE A DAY ORAL ACTIVE [facility] I Kavin 2013 [facility] INSULIN,DET ZEKE,HUMAN 100 UNIT/ML INJ INJECT 20 UNITS UNDER THE SKIN ONCE A DAY SUBCUT ANEOUS ACTIVE MARIO VALERO 2013 [facility] METFORMIN HCL 1000MG/SOSA GLIPTIN PHOSPHATE 50MG TAB TAKE ONE TABLET BY MOUTH TWICE A DAY ORAL ACTIVE MARIO VALERO 2013 [facility] Immunizations Combined list of available immunizations from the Department of Defense and Veterans Affairs facilities. Immunization Series Date Given Administered By Site Reaction Lot Number CVX Code Drug Transport Specialist Status Comments Source TDAP 2013 115 complet ed [facility] INFLUENZA, UNSPECIFIED FORMULATION 2012 88 complet ed [facility] Social History Combined list of available smoking, tobacco, and other social history from Department of Defense and Veterans Affairs facilities. Social History Type Response Date Comment Ankur stevenson Tobacco smoking status NHIS LIFETIME NON-USER OF TOBACCO 05/12/2014 [facility]
== END 2025-04-12 13:44 | disposition home or self-care (01) ==
LOC: ANHBWCIMG 13:45
PROVIDERS: PCP Nurse Practitioner Adult Health; Visit Provider Nurse Practitioner Adult Health
DX: M47.816 Spondylosis without myelopathy or radiculopathy, lumbar region (principal); M25.559 Pain in unspecified hip
CPT/HCPCS: 72100; 73502

== ENCOUNTER 2025-04-20 11:35 | Outpatient (CLI) | payer MEDICARE, SELFPAY ==
--- NOTE | ~2025-04-20 | CT_ITS ---
EXAMINATION: CT pelvis wo con DATE: 04/20/2025 12:00 INDICATION: Lower abdominal pain TECHNIQUE: Computed tomography (CT) of the pelvis was performed without intravenous contrast. Automat ed exposure control and iterative reconstruction technique were employed.The dose-length product was 749.71 mGy-cm. COMPARISON: None FINDINGS: There is mild diffuse wall thickening along the sigmoid colon consistent with colitis. A single sigmo id diverticulum is identified without adjacent inflammatory stranding to suggest diverticulitis. Visu alized portion of the small bowels are unremarkable with no dilation to suggest obstruction. Bladder is normal. Small fat-containing left inguinal hernia. No free fluid in the pelvis. No pathologically enlarged pelvic or inguinal lymphadenopathy. Mild degenerative skeletal changes in the pelvis and vis ualized lower lumbar spine. IMPRESSION: 1. Mild wall thickening along the sigmoid colon consistent with mild colitis which could be infectiou s, inflammatory or ischemic in etiology. Reviewed, dictated and finalized at location A. IMPRESSION: 1. Mild wall thickening along the sigmoid colon consistent with mild colitis wh ich could be infectious, inflammatory or ischemic in etiology.
--- OUTSIDE RECORDS SUMMARY | 2025-04-20 12:25 | XMS_ITS | Encounter Summary ---
Author Organization [facility] Address [address] [place] [address] Care Team Providers Care Head Of Biology Name Role Phone Rosa Chávez MD Primary [...] on file Legal Sex Male 3:07 AM JOURNEY LINEMAN Gender Identity Not on file Sexual Orientation Not on file documented as of this encounter Plan of Treatment Upcoming Encounters Date Type Department Care Team (Late st Contact Info) Description 07/19/2025 10:00 AM JOURNEY LINEMAN Appointment [facility] Imaging Services [facility] [address] [place] [address] Ros Sapp PA-C [address]327 [facility] [place] [address] [place] [address] 07/20/2025 9:30 AM JOURNEY LINEMAN Office Visit [facility] Surgical Specialists Zeus Ibrahim [facility] [address] [facility] [address] [place] [phone] Ros Sapp PA-C [address]009 [facility] [address] [place] [address] 07/27/2025 11:15 AM JOURNEY LINEMAN Office [facility] Oncology and Hematology [facility] 2227 [facility] 200 [place] [address] Blayne Marr MD 2227 [facility] [address] [place] [address] documented as of this encounter Visit Diagnoses Diagnosis Type II or unspecified type diabetes mellitus without mention of complication, not stated as uncontrolled- Primary documented in this encounter Care Teams Head Of Biology Relationship Specialty Start Date End Date Rosa Chávez MD [address] [place] [address] [place] [phone] PCP - General Family Practice 03/08/23 11/01/24 documented as of this encounter
--- OUTSIDE RECORDS SUMMARY | 2025-04-20 12:25 | XMS_ITS | Encounter Summary ---
Author Organization [facility] Address [address] [place] [address] Phone Care Team Providers Care Chalk Tester Name Role Phone Carline Lu NP Primary Care Provider [phone] Reason for Visit * Reason Comments Med Refill Encounter Details Date Type Department Care Team (Late st Contact Info) Description 07/30/2022 Refill [facility] Nephrology and Hypertension [address] [place] [address], [address] [place] [address] Luis Kaminski MD [address] [facility], [address] [place] [address] Social History Tobacco Use Types Packs/Day Years [...] on filedocumented in this encounter Care Teams Chalk Tester Relationship Specialty Start Date End Date Carline Lu NP [address] [place] [address] [place] [phone] PCP - General Internal Medicine 05/25/19 documented as of this encounter
--- OUTSIDE RECORDS SUMMARY | 2025-04-20 12:25 | XMS_ITS | Encounter Summary ---
Author Organization [facility] Address [address] [place] [address] Care Team Providers Care Hand Filer Balance Wheel Name Role Phone Rosa Chávez MD Primary Care Provider + Encounter Details Date Type Department Care Team (Late st Contact Info) Description 02/21/2000 Outpatient Historical [facility] Zeus Saha MD [address] [place] [address] Social History Tobacco Use Types Packs/Day Years Used Date Smoking Tobacco: Never Assessed Sex and Gender Information Value Date Recorded Sex Assigned at Not on file Legal Sex Male 3:07 AM JOURNALISM INTERN Gender Identity Not on file Sexual Orientation Not on file documented as of this encounter Plan of Treatment Upcoming Encounters Date Type Department Care Team (Late st Contact Info) Description 07/19/2025 10:00 AM JOURNALISM INTERN Appointment [facility] Imaging Services [facility] [address] [place] [address] Ros Sapp PA-C [address] [address] 07/20/2025 9:30 AM JOURNALISM INTERN Office Visit [facility] Surgical Specialists Zeus Ibrahim [facility] [address] [facility] [address] [place] [address] Ros Sapp PA-C 29991 [facility] [address] [place] [address] 07/27/2025 11:15 AM JOURNALISM INTERN Office Visit [facility] Oncology and Hematology [facility] 2227 [facility] 200 [place] [address] Blayne Marr MD 2227 [facility] [address] [place] [address] documented as of this encounter Visit Diagnoses Not on filedocumented in this encounter Care Teams Hand Filer Balance Wheel Relationship Specialty Start Date End Date Rosa Chávez MD [address] [place] [address] [place] [phone] PCP - General Family Practice 03/08/23 11/01/24 documented as of this encounter
--- OUTSIDE RECORDS SUMMARY | 2025-04-20 12:25 | XMS_ITS | Encounter Summary ---
Author Organization [facility] Address [address] [place] [address] Phone Care Team Providers Care Retail Team Leader Name Role Phone Carline Lu NP Primary Care Provider Reason for Visit * Reason Comments Med Refill Encounter Details Date Type Department Care Team (Late st Contact Info) Description 04/16/2022 Refill [facility] Nephrology and Hypertension [address] [place] [address], [address] [place] [address] Luis Kaminski MD 10[address] [facility], [address] [place] [address] Social History Tobacco Use Types Packs/Day Years Used Date Smoking Tobacco: Never Smokeless Tobacco: Never Alcohol Use Standard Drinks/Week Comments No 0 (1 standard drink = 0.6 oz pur e alcohol) Sex and Gender Information Value Date Recorded Sex Assigned at Not on file Legal Sex Male 7:21 AM [facility] Gender Identity Not on file Sexual Orientation Not on file documented as of this encounter Plan of Treatment Not on file documented as of this encounter Visit Diagnoses Not on filedocumented in this encounter Care Teams Retail Team Leader Relationship Specialty Start Date End Date Carline Lu NP [facility] [place] [phone] PCP - General Internal Medicine 05/25/19 documented as of this encounter
--- OUTSIDE RECORDS SUMMARY | 2025-04-20 12:25 | XMS_ITS | Clinical Summary ---
Author Organization [facility] Address [address] [place] [address] Phone Care Team Providers Care Trim Die Maker Name Role Phone Unavailable Primary Care Provider [...] Description 04/12/2025 11:15 AM CDT Office Visit [facility] Oncology and Hematology - [address] [place] [address] Blayne Marr MD Metastatic carcinoid tumor (CMS/HCC) (Primary Dx) 04/01/2025 Orders Only [facility] Oncology and Hematology [address] [place] [address] Blayne Marr MD 03/24/2025 External Device Data [...] 4 Drug Abuse Brother 5 Endometriosis Daughter DAVDI/BSO at 30 Other Daughter partial colecto my [...] on file Legal Sex Male 3:07 AM MOLD FORMS BUILDER Gender Identity Not on file Sexual Orientation [...] st Contact Info) Description 07/19/2025 10:00 AM MOLD FORMS BUILDER Appointment [facility] Imaging Services [facility] [address] [place] [address] Ros Sapp PA-C [address] [facility] [address] [place] [address] 07/20/2025 9:30 AM MOLD FORMS BUILDER Office Visit [facility] Surgical Specialists Zeus Ibrahim [facility] [address] [facility] [address] [place] [address] Ros Sapp PA-C [address] [facility] [address] [place] [address] 07/27/2025 11:15 AM MOLD FORMS BUILDER Office Visit [facility] Oncology and Hematology - [address]227 [facility] 200 [place] [address] Blayne Marr MD 2227 [facility] [address] [place] [address] Health Maintenance Due Date Last Done Comments DIABETES ANNUAL FOOT EXAM 1966 DIABETES MICROALBUMIN ANNUAL SCREEN 1966 LDL CHOLESTEROL ANNUAL 1966 ZOSTER VACCINE (1 of 2) 11/20/1967 DTAP/TDAP/TD VACCINES (3 - T d or Tdap) 09/09/2023 09/09/2013, 09/20/2010 RSV VACCINE (60+ or ) (1 - 1-dose 75+ series) 11/20/2023 Traditional Medicare (O) A nnual Wellness Visit 07/23/2024 07/22/2023 DIABETES HBA1C Q 6 MONTHS 04/08/20252024, 05/27/2024, 12/26/2023, Additional history exists INFLUENZA VACCINE (#1) 2025 2, 07/25/2020, 06/30/2019, Additional history exists DIABETES ANNUAL RETINAL EXAM 11/10/202512/2024, 07/21/2024, 03/30/2024, Additional history exists COLORECTAL SCREENING Discontinued 09/08/2020, 09/08/2020, 04/16/2016, Additional history exists Colorectal Cancer Screening Discontinued PNEUMOCOCCAL VACCINE 50+ YEARS Completed 0 01/15/2023, 09/07/2014, 07/21/2008 FIT-DNA Q 3 years Discontinued FIT/FOBT Q 1 year Discontinued Flex Sig/CT Colonography Q 5 years Discontinued Medical Devices Implanted Type Area Visual Artist Device Identifier Shelf Expiration Date Model / Serial / Lot Barrier Seprafilm 5x6in [id number] - [id number] Implanted:Qty : 2 on 03/15/2023 by Ming Ayala MD at [facility] Adhesion Barrier N/A: Abdomen [employer] 03/26/2025 [id number] / / [id number] - [id number] Implanted:Qty : 1 on 06/06/2009 at [facility] [place] Left: Shoulder [employer] 11/07/2013 [id number] / [id number] / [id number] Description:Rotator Cuff Abdirizak ckanchor Clip Ligating Horizon Med Ti [id number] - Csc - [id number] Implanted:Qty : 1 on 03/15/2023 by Ming Ayala MD at [facility] N/A: Abdomen TELEFLEX- WECK CLOSURE SYS 10/23/2027 [id number] / / [id number] Clip Ligating Horizon Ti Sm 24 [id number] Rp - [id number] Implanted:Qty : 1 on 03/15/2023 by Ming Ayala MD at [facility] N/A: Abdomen TELEFLEX- WECK CLOSURE SYS 12/24/2027 [id number] RP / / [id number] Clip Ligating Horizon Lg Ti 755360 - Csc - [id number] Implanted:Qty : 1 on 03/15/2023 by Ming Ayala MD at [facility] N/A: Abdomen TELEFLEX- WECK CLOSURE SYS 12/05/2027 [id number] / / [id number] Clip Ligating Horizon Lg Ti [id number] - Csc - [id number] Implanted:Qty : 2 on 03/15/2023 by Ming Ayala MD at [facility] N/A: Abdomen TELEFLEX- WECK CLOSURE SYS 07/16/2027 [id number] / / [id number] Clip Ligating Horizon Lg Ti [id number] - Csc - [id number] Implanted:Qty : 1 on 03/15/2023 by Ming Ayala MD at [facility] N/A: Abdomen TELEFLEX- WECK CLOSURE SYS 06/18/2026 [id number] / / [id number] Hemostat Surg Snow 2x4in 2081 - [id number] Implanted:Qty : 3 on 03/15/2023 by Ming Ayala MD at [facility] N/A: Abdomen [employer] [id number] 10/09/20242 / / [id number] Procedures Procedure Name Priority Date/Time Associated Diagnosis Comments CHROMOGRANIN A Routine 03/29/2025 2:23 PM CDT COMPREHENSIVE METABOLIC PANEL Routine 03/29/2025 1:41 PM CDT SEROTONIN LEVEL Routine 03/29/2025 1:05 PM CDT COLONOSCOPY REPORT 09/08/2020 11 :11 AM MOLD FORMS BUILDER from Last 3 Months or Most Recently [...] MD CHEMISTRY ORDERABLES Final Resu lt * COLONOSCOPY REPORT (09/08/2020 11:11 AM MOLD FORMS BUILDER) Narrative Procedure Note Noel Pathak MD - 09/08/2020 11:10 AM CST [facility] Endoscopy Patient Name: Manuel Mata Procedure [...] for surveillance. Procedure Code(s): --- Professional --- 17576, Colonoscopy, flexible; with removal of tumor(s), polyp(s), or other lesion(s) by snare technique CPT copyright 2018 [employer]. All rights reserved. The codes documented in this report are preliminary and upon pharmacy intake technician review may be revised to meet current compliance requirements. Noel Pathak MD 09/08/2020 11:10:17 AM This report has been signed electronically. Number of Addenda: [id number] [place] [address] Noel Pathak MD GI PROCEDURE ORDERABLES Final Result from Last 3 Months or Most Recently Relevant to Health Maintenance Insurance MEDICARE PART A AND B [facility] SUPP MEDICARE PART A AND B [facility] SUPP RX [facility] [place] [address] Advance Directives For more information, please contact: [phone] Documents on File Type Date Recorded Patient Child Care Giver Expl anation Advance Directive Living Will 06/02/2009 [...]
--- OUTSIDE RECORDS SUMMARY | 2025-04-20 12:25 | XMS_ITS | Encounter Summary ---
Author Organization [facility] Address [address] [place] [address] Care Team Providers Care Sewage Plant Operator Name Role Phone Rosa Chávez MD Primary Care Provider + Encounter Details Date Type Department Care Team (Late st Contact Info) Description 01/01/2000 Outpatient Historical [facility] Zeus Saha MD [address] [place] [address] Social History Tobacco Use Types Packs/Day Years Used Date Smoking Tobacco: Never Assessed Sex and Gender Information Value Date Recorded Sex Assigned at Not on file Legal Sex Male 3:07 AM INFORMATION WRITER Gender Identity Not on file Sexual Orientation Not on file documented as of this encounter Plan of Treatment Upcoming Encounters Date Type Department Care Team (Late st Contact Info) Description 07/19/2025 10:00 AM INFORMATION WRITER Appointment [facility] Imaging Services [facility] [address] [place] [address] Ros Sapp PA-C [address] [address] 07/20/2025 9:30 AM INFORMATION WRITER Office Visit [facility] Surgical Specialists Zeus Ibrahim [facility] [address] [facility] [address] [place] [address] Ros Sapp PA-C [address] [facility] [address] [place] [address] 07/27/2025 11:15 AM INFORMATION WRITER Office Visit [facility] Oncology and Hematology [facility] 2227 [facility] 200 [place] [address] Blayne Marr MD 2227 [facility] [address] [place] [address] documented as of this encounter Visit Diagnoses Not on filedocumented in this encounter Care Teams Sewage Plant Operator Relationship Specialty Start Date End Date Rosa Chávez MD [address] [place] [address] [place] [phone] PCP - General Family Practice 03/08/23 11/01/24 documented as of this encounter
--- OUTSIDE RECORDS SUMMARY | 2025-04-20 12:25 | XMS_ITS | Encounter Summary ---
Author Organization [facility] Address [address] [place] [address] Care Team Providers Care Metal Baler Name Role Phone Rosa Chávez MD Primary [...] on file Legal Sex Male 3:07 AM NURSERYMAN ASSISTANT Gender Identity Not on file Sexual Orientation Not on file documented as of this encounter Plan of Treatment Upcoming Encounters Date Type Department Care Team (Late st Contact Info) Description 07/19/2025 10:00 AM NURSERYMAN ASSISTANT Appointment [facility] Imaging Services [place] [phone] Ros Sapp PA-C [address] [place] [address] 07/20/2025 9:30 AM NURSERYMAN ASSISTANT Office Visit [facility] Surgical Specialists [facility] [address] [facility] [address] [place] [address] Ros Sapp PA-C [address] [facility] [address] [place] [address] 07/27/2025 11:15 AM NURSERYMAN ASSISTANT Office Visit [facility] Oncology and Hematology [facility] 2226 [facility] 200 [place] [address] Blayne Marr MD 2227 [facility] [address] [place] [address] documented as of this encounter Visit Diagnoses Not on filedocumented in this encounter Care Teams Metal Baler Relationship Specialty Start Date End Date Rosa Chávez MD [address] [place] [address] [place] [phone] PCP - General Family Practice 03/08/23 11/01/24 documented as of this encounter
--- OUTSIDE RECORDS SUMMARY | 2025-04-20 12:25 | XMS_ITS | Encounter Summary ---
Author Organization [facility] Address [address] [place] [address] Care Team Providers Care High School Science Tutor Name Role Phone Rosa Chávez MD Primary Care Provider + Encounter Details Date Type Department Care Team (Late st Contact Info) Description 06/26/2000 Outpatient Historical [facility] MD Yifan GARCIA, Zeus Sanchez MD [address] [place] [address] Social History Tobacco Use Types Packs/Day Years Used Date Smoking Tobacco: Never Assessed Sex and Gender Information Value Date Recorded Sex Assigned at Not on file Legal Sex Male 3:07 AM FOREIGN TRADE TEACHER Gender Identity Not on file Sexual Orientation Not on file documented as of this encounter Plan of Treatment Upcoming Encounters Date Type Department Care Team (Late st Contact Info) Description 07/19/2025 10:00 AM FOREIGN TRADE TEACHER Appointment [facility] Imaging Services [facility] [address] [place] [address] Ros Sapp PA-C [address] [address] 07/20/2025 9:30 AM FOREIGN TRADE TEACHER Office Visit [facility] Surgical Specialists Zeus Ibrahim [facility] [address] [facility] [address] [place] [address] Ros Sapp PA-C [address] [facility] [address] [place] [address] 07/27/2025 11:15 AM FOREIGN TRADE TEACHER Office Visit [facility] Oncology and Hematology [facility] 2227 [facility] 200 [place] [address] Blayne Marr MD 2227 [facility] [address] [place] [address] documented as of this encounter Visit Diagnoses Not on filedocumented in this encounter Care Teams High School Science Tutor Relationship Specialty Start Date End Date Rosa Chávez MD [address] [place] [address] [place] [phone] PCP - General Family Practice 03/08/23 11/01/24 documented as of this encounter
--- OUTSIDE RECORDS SUMMARY | 2025-04-20 12:25 | XMS_ITS | Clinical Summary ---
Author Organization [facility] Address [address] [place] [address] Phone Care Team Providers Care Product Engineering Manager Name Role Phone Carline Lu NP Primary Care Provider [phone] Allergies No known active allergies Medications hydroCHLOROthiaz [...] on file Legal Sex Male 7:21 AM [facility] Gender Identity Not on file Sexual Orientation Not on file Last Filed Vital Signs Vital Sign Reading Time Taken Comments Blood Pressure 136/80 10/14/2019 10:52 AM LOCKSTITCH WAISTBAND SETTER Pulse 84 10/14/2019 10:52 AM LOCKSTITCH WAISTBAND SETTER Temperature 36.4 C (97.5 F) 10/14/2019 10:52 AM LOCKSTITCH WAISTBAND SETTER Respiratory Rate - - Oxygen Saturation - - Inhaled Oxygen Concentration - - Weight 105 kg (232 lb) 10/14/2019 10:52 AM LOCKSTITCH WAISTBAND SETTER Height 182.9 cm (6') 10/14/2019 10:52 AM LOCKSTITCH WAISTBAND SETTER Body Mass Index 31.46 10/14/2019 10:52 AM LOCKSTITCH WAISTBAND SETTER Plan of Treatment Health Maintenance Due Date Last Done Comments Pneumococcal PPSV23/PCV13 65 + Years / Low and Medium Risk (3 of 3 - PCV20 or PCV21) 09/07/2019 09/07/2014, 2007 Influenza Vaccine (#1) 2025 06/29/2013, 2009 Insurance MEDICARE [facility] [facility] YAMIL BADILLO [id number] Care Teams Product Engineering Manager Relationship Specialty Start Date End Date Carline Lu NP [facility] [place] [address] PCP - General Internal Medicine 05/25/19
--- OUTSIDE RECORDS SUMMARY | 2025-04-20 12:25 | XMS_ITS | Encounter Summary ---
Author Organization [facility] Address [address] [place] [address] Care Team Providers Care Tank Washer Name Role Phone Rosa Chávez MD Primary Care Provider + Encounter Details Date Type Department Care Team (Late st Contact Info) Description 04/24/2000 Outpatient Historical [facility] MD Yifan GARCIA, Zeus Sanchez MD [address] [place] [address] Social History Tobacco Use Types Packs/Day Years Used Date Smoking Tobacco: Never Assessed Sex and Gender Information Value Date Recorded Sex Assigned at Not on file Legal Sex Male 3:07 AM WOUND CARE COORDINATOR Gender Identity Not on file Sexual Orientation Not on file documented as of this encounter Plan of Treatment Upcoming Encounters Date Type Department Care Team (Late st Contact Info) Description 07/19/2025 10:00 AM WOUND CARE COORDINATOR Appointment [facility] [address] [place] [address] Ros Sapp PA-C [address] [address] 07/20/2025 9:30 AM WOUND CARE COORDINATOR Office Visit [facility] [address] [facility] [address] [place] [address] Ros Sapp PA-C [address] [facility] [address] [place] [address] 07/27/2025 11:15 AM WOUND CARE COORDINATOR Office Visit [facility] Oncology and Hematology [facility] 2227 [facility] 200 [place] [address] Blayne Marr MD 2227 [facility] [address] [place] [address] documented as of this encounter Visit Diagnoses Not on filedocumented in this encounter Care Teams Tank Washer Relationship Specialty Start Date End Date Rosa Chávez MD [address] [place] [address] [place] [phone] PCP - General Family Practice 03/08/23 11/01/24 documented as of this encounter
--- OUTSIDE RECORDS SUMMARY | 2025-04-20 12:25 | XMS_ITS | Continuity of Care Document ---
Author Name [facility] Organization [facility] Care Team Providers Care Associate Product Integrity Engineer Name Role Phone [facility] Unavailable Unavailable Problems Combined list of problems [place] [facility] [place] [facility] facilities. It does not include entries that were removed or entered in error. Problem Status Onset Date Problem Type Date of Resolution Comments Source Benign hypertension Active Condition [facility] Cataract Active Condition [facility] Diabetes mellitus Active Condition [facility] Hyperlipidemia Active Condition [facility] Medications Combined list of outpatient medications [place] [facility] [place] [facility] facilities.Medications provided include 1) outpatient medications from the last 15 months, and 2) patient-reported medications. Medication Details Route Status Patient Instructions Prescription Expires Prescription Number Last Dispense Date Ordering Provider Order Date Order Qty Source BRIMONIDINE TARTRATE 0.15% SOLN,OPH INSTILL 1 DROP IN BOTH EYES TWICE A DAY OPHTHA LMIC ACTIVE [facility] CHONDROITIN SULFATE CAP/TAB TAKE 1 CAP/TAB BY MOUTH TWICE A DAY ORAL ACTIVE [facility] I B 2013 [facility] COENZYME Q10 CAP/TAB TAKE 1 CAP/TAB BY MOUTH ONCE A DAY ORAL ACTIVE [facility] 2013 [facility] FISH OIL 1000MG (500MG DHA/EPA) CAP,ORAL TAKE BY MOUTH THREE TIMES A DAY [facility] Kavin 2013 [facility] GLIMEPIRIDE 4MG TAB TAKE ONE TABLET BY MOUTH QAM ORAL ACTIVE [facility] Kavin 2013 [facility] GLUCOSAMINE CAP/TAB TAKE 1 CAP/TAB BY MOUTH ONCE A DAY [facility] Kavin 2013 [facility] INSULIN,DET ZEKE,HUMAN 100 UNIT/ML INJ INJECT 20 UNITS UNDER THE SKIN ONCE A DAY SUBCUT ANEOUS ACTIVE MARIO VALERO 2013 [facility] METFORMIN HCL 1000MG/SOSA GLIPTIN PHOSPHATE 50MG TAB TAKE ONE TABLET BY MOUTH TWICE A DAY ORAL ACTIVE MARIO VALERO 2013 [facility] Immunizations Combined list of available immunizations from the Department of Defense and Veterans Affairs facilities. Immunization Series Date Given Administered By Site Reaction Lot Number CVX Code Drug Job Press Feeder Status Comments Source TDAP 2013 115 complet ed [facility] INFLUENZA, UNSPECIFIED FORMULATION 2012 88 complet ed [facility] Social History Combined list of available smoking, tobacco, and other social history from [facility] and [facility] facilities. Social History Type Response Date Comment Ankur stevenson Tobacco smoking status NHIS LIFETIME NON-USER OF TOBACCO 05/12/2014 [facility]
--- OUTSIDE RECORDS SUMMARY | 2025-04-20 12:25 | XMS_ITS | Encounter Summary ---
Author Organization [facility] Address [address] [place] [address] Care Team Providers Care Rn Otolaryngology Name Role Phone Rosa Chávez MD Primary Care Provider + Encounter Details Date Type Department Care Team (Late st Contact Info) Description 07/18/1998 Outpatient Historical [facility],NON-PATIENT Natalya Brown MD Social History Tobacco Use Types Packs/Day Years Used Date Smoking Tobacco: Never Assessed Sex and Gender Information Value Date Recorded Sex Assigned at Not on file Legal Sex Male 3:07 AM HELPER TEACHER Gender Identity Not on file Sexual Orientation Not on file documented as of this encounter Plan of Treatment Upcoming Encounters Date Type Department Care Team (Late Contact Info) Description 07/19/2025 10:00 AM HELPER TEACHER Appointment [facility] [address] [id number] Ros Sapp PA-C [id number] [place] [phone] 07/20/2025 9:30 AM HELPER TEACHER Office Visit [facility] [address] [facility] [address] [place] [phone] Ros Sapp PA-C [address] [facility] [address] [place] [address] 07/27/2025 11:15 AM HELPER TEACHER Office Visit [facility] [address] [facility] [place] [address] [place] [address] Blayne Marr MD [address] [facility] [address] [place] [address] documented as of this encounter Visit Diagnoses Not on filedocumented in this encounter Care Teams Rn Otolaryngology Relationship Specialty Start Date End Date Rosa Chávez MD [address] [place] [address] [place] [id number] PCP - General Family Practice 03/08/23 11/01/24 documented as of this encounter
== END 2025-04-20 11:36 | disposition home or self-care (01) ==
PROVIDERS: PCP Nurse Practitioner Adult Health; Visit Provider Nurse Practitioner Adult Health
DX: K63.89 Other specified diseases of intestine (principal); K52.9 Noninfective gastroenteritis and colitis, unspecified
CPT/HCPCS: 72192

== ENCOUNTER 2025-05-11 09:38 | Outpatient (CLI) | payer MEDICARE, SELFPAY ==
--- OUTSIDE RECORDS SUMMARY | 2014-05-12 11:56 | XMS_ITS | Continuity of Care Document ---
Author Name [facility] Organization [facility] Care Team Providers Care Animal Control Officer Name Role Phone [facility] Unavailable Unavailable Problems Combined list of problems from [facility] and [facility] facilities. It does not include entries that were removed or entered in error. Problem Status Onset Date Problem Type Date of Resolution Comments Source Benign hypertension Active Condition [facility] Cataract Active Condition [facility] Diabetes mellitus Active Condition [facility] Hyperlipidemia Active Condition [facility] Medications Combined list of outpatient medications from [facility] and [facility] facilities.Medications provided include 1) outpatient medications from the last 15 months, and 2) patient-reported medications. Medication Details Route Status Patient Instructions Prescription Expires Prescription Number Last Dispense Date Ordering Provider Order Date Order Qty Source BRIMONIDINE TARTRATE 0.15% SOLN,OPH INSTILL 1 DROP IN BOTH EYES TWICE A DAY OPHTHA LMIC ACTIVE [facility] [place] [facility] 2013 [facility] CHONDROITIN SULFATE CAP/TAB TAKE 1 CAP/TAB BY MOUTH TWICE A DAY ORAL ACTIVE [facility] [place] [facility] B 2013 [facility] COENZYME Q10 CAP/TAB TAKE 1 CAP/TAB BY MOUTH ONCE A DAY ORAL ACTIVE [facility] [place] [facility] 2013 [facility] FISH OIL 1000MG (500MG DHA/EPA) CAP,ORAL TAKE BY MOUTH THREE TIMES A DAY ORAL [facility] [place] Kavin 2013 [facility] GLIMEPIRIDE 4MG TAB TAKE ONE TABLET BY MOUTH QAM ORAL ACTIVE [facility] [place] [facility] Kavin 2013 [facility] GLUCOSAMINE CAP/TAB TAKE 1 CAP/TAB BY MOUTH ONCE A DAY [facility]AL [facility] [place] [facility] Kavin 2013 [facility] INSULIN,DET ZEKE,HUMAN 100 UNIT/ML INJ INJECT 20 UNITS UNDER THE SKIN ONCE A DAY SUBCUT ANEOUS ACTIVE MARIO VALERO 2013 [facility] METFORMIN HCL 1000MG/SOSA GLIPTIN PHOSPHATE 50MG TAB TAKE ONE TABLET BY MOUTH TWICE A DAY ORAL ACTIVE MARIO VALERO 2013 [facility] Immunizations Combined list of available immunizations from the Department of Defense and Veterans Affairs facilities. Immunization Series Date Given Administered By Site Reaction Lot Number CVX Code Drug Burner Machine Operator Status Comments Source TDAP 2013 115 complet ed [facility] INFLUENZA, UNSPECIFIED FORMULATION 2012 88 complet ed [facility] Social History Combined list of available smoking, tobacco, and other social history from [facility] of Defense and Veterans Affairs facilities. Social History Type Response Date Comment Ankur stevenson Tobacco smoking status NHIS LIFETIME NON-USER OF TOBACCO 05/12/2014 [facility]
--- OUTSIDE RECORDS SUMMARY | 2024-07-25 16:00 | XMS_ITS ---
Author Organization [facility] Address [address] [place] [address] Care Team Providers Care Nurse Transplant Name Role Phone Nicole Palacios Primary Care Provider Migration, Provider Unavailable Unavailable REASON FOR VISIT [facility] Conversion Encounter Medications Medication SIG (Take, Route, Frequency, Duration) Notes Start Date End Date Status Ozempic (0.25 or 0.5 MG/DOSE) 2 MG/3ML inject 0.5 mg subcutaneously once a week for 90 days 05/26/2024 Active Ozempic (0.25 or 0.5 MG/DOSE) 2 MG/3ML inject 0.5 mg subcutaneously once a week for 90 days 07/17/2024 Active Ozempic (0.25 or 0.5 MG/DOSE) 2 MG/3ML inject 0.25 mg SQ once weekly x 4 weeks then up to 0.5 mg once weekly with meal subcutaneously once a week for 90 days 12/19/2023 Unknown Encounters Encounter Location Date [facility] [address] [place] [address] 07/25/2024 Provider Migration Type 2 diabetes mellitus with hyperglycemia E11.65 and Type 2 diabetes mellitus without complications E11.9 Assessments Encounter Date Diagnosis (ICD Code) Assessment Notes Treatment Notes Treatment Clinical Notes Section Notes 07/25/2024 Type 2 diabetes mellitus with hyperglycemia (ICD-10 - E11.65) 07/25/2024 Type 2 diabetes mellitus without complications (ICD-10 - E11.9) Plan Of Treatment Medication Medication Name Sig Start Date Stop Date Notes Ozempic (0.25 or 0.5 MG/DOSE) 2 MG/3ML inject 0.5 mg subcutaneously once a week for 90 days 05/26/2024 Ozempic (0.25 or 0.5 MG/DOSE) 2 MG/3ML inject 0.5 mg subcutaneously once a week for 90 days 07/17/2024 Progress Notes * MESSI WALLACEDOB:[birth year] (74 yo M)Acc No.[id number]:07/25/2024 Patient: MESSI MARTINEZ Provider: Sonali Valentine :1950 A ge:73 Y S ex:Male Date:07/25/2024 Address:[facility] [id number] Pcp:Nicole Palacios Subjective: * Chief Complaints: * 1 . [facility] Conversion Encounter. * Medical History: * Medications: U nknown Ozempic (0.25 or 0.5 MG/DOSE)(Semaglutide(0.25 or 0.5MG/DOS)) 2 MG/3ML Solution Pen-injector inject 0.25 mg SQ once weekly x 4 weeks then up to 0.5 mg once weekly with meal subcutaneously once a week Objective: * Vitals: Assessment: * Assessment: 1. T ype 2 diabetes mellitus with hyperglycemia - E11.65 (Primary) 2 . T ype 2 diabetes mellitus without complications - E11.9 (Primary) Plan: * Treatment: 2. T ype 2 diabetes mellitus without complications Start Ozempic (0.25 or 0.5 MG/DOSE) Solution Pen-injector, 2 MG/3ML, inject 0.5 mg, subcutaneously, once a week, 90 days, 3, Refills 1. * Billing Information: * Visit Code: * Procedure Codes: * Electronic signature of Prov ider Migration on 05/11/2025 at 09:59 AM CDT Sign off status: Pending * Provider: Sonali Valentine Date: 09/24/2023 Generated for Lucinda cope/Isabella/Essenceitting on: 0 05/11/2025 09:59 AM CDT
--- OUTSIDE RECORDS SUMMARY | 2024-07-25 16:00 | XMS_ITS ---
Author Organization [facility] Address [address] [place] [id number] Care Team Providers Care Manufacturing Inspector Name Role Phone Nicole Palacios Primary Care Provider [phone] Migration, Provider Unavailable Unavailable [facility] Encounter Medications Medication SIG (Take, Route, Frequency, Duration) Notes Start Date End Date Status Ozempic (0.25 or 0.5 MG/DOSE) 2 MG/3ML Solution Pen-injector inject 0.5 mg subcutaneously once a week; Duration: 90 days 05/26/2024 Active Ozempic (0.25 or 0.5 MG/DOSE) 2 MG/3ML Solution Pen-injector inject 0.5 mg subcutaneously once a week; Duration: 90 days 07/17/2024 Active Ozempic (0.25 or 0.5 MG/DOSE) 2 MG/3ML Solution Pen-injector inject 0.25 mg SQ once weekly x 4 weeks then up to 0.5 mg once weekly with meal subcutaneously once a week; Duration: 90 days 12/19/2023 Unknown Encounters Encounter Location Date Provider Diagnosis [address] [phone] 07/25/2024 Provider Migration Type 2 diabetes mellitus [...] Ozempic (0.25 or 0.5 MG/DOSE) 2 MG/3ML Solution Pen-injector inject 0.5 mg subcutaneously once a week; Duration: 90 days 05/26/2024 Ozempic (0.25 or 0.5 MG/DOSE) 2 MG/3ML Solution Pen-injector inject 0.5 mg subcutaneously once a week; Duration: 90 days 07/17/2024 Next Appt Details Provider Name:Nicole Palacios, 10:00:00 AM, [address] [place] [address], [phone], Progress Notes * MESSI WALLACEDOB:[birth year] (74 yo M)Acc No.[id number]:07/25/2024 Patient: MESSI MARTINEZ Provider: Sonali Valentine :1950 A ge:73 Y S ex:Male Date:07/25/2024 [id number] Pcp:Nicole Palacios Subjective: * Chief Complaints: * M [facility] Conversion Encounter * Medications: U nknownOzempic (0.25 or 0.5 MG/DOSE) 2 MG/3ML Solution Pen-injector inject 0.25 mg SQ once weekly x 4 weeks then up to 0.5 mg once weekly with meal subcutaneously once a week Unknown Ozempic (0.25 or 0.5 MG/DOSE) 2 MG/3ML Solution Pen-injector inject 0.25 mg SQ once weekly x 4 weeks then up to 0.5 mg once weekly with meal subcutaneously once a week Assessment: * Assessment: 1. T ype 2 diabetes mellitus with hyperglycemia - E11.65 (Primary) 2 . T ype 2 diabetes mellitus without complications - E11.9 (Primary) Plan: * Treatment: 2. T ype 2 diabetes mellitus without complications Start Ozempic (0.25 or 0.5 MG/DOSE) Solution Pen-injector, 2 MG/3ML, inject 0.5 mg, subcutaneously, once a week, 90 days, 3, Refills 1. * Electronic signature of Prov ider Migration on 05/11/2025 at 09:58 AM CDT Sign off status: Pending * Provider: Sonali harmon Migration Date: 1 09/24/2023 Generated for Lucinda cope/Isabella/Keena on: 0 05/11/2025 09:58 AM CDT
--- OUTSIDE RECORDS SUMMARY | 2024-10-20 05:40 | XMS_ITS ---
Author Organization [facility] Address [address] [place] [address] Care Team Providers Care Bilingual Receptionist Name Role Phone Nicole Palacios Primary Care Provider REASON FOR VISIT F/U JEREMIAS Encounters Encounter Location Date Provider Diagnosis Loop [facility] DI[facility]ST[facility], [facility] - Nicole Palacios [address] [place] [address] 10/20/2024 Nicole Palacios Plan Of Treatment No Information Progress Notes * MESSI WALL[birth year]EDOB:[birth year] (74 yo M)Acc No.[id number]:10/20/2024 Progress Notes Patient: MESSI MARTINEZ Provider: Alexandria Palacios MD :[id number] A ge:73 Y S ex:Male Date:10/20/2024 Address:[facility] Subjective: * Chief Complaints: * 1 . F/U JEREMIAS. * Medical History: Objective: * Vitals: Assessment: Plan: * Treatment: * Billing Information: * Visit Code: * Procedure Codes: * Electronic signature of Bijan Palacios MD on 05/11/2025 at 09:59 AM CDT Sign off status: Pending * Provider: Alexandria Palacios MD Date: 10/20/2024 Generated for Lucinda cope/Isabella/eTransmitting on: 0 05/11/2025 09:59 AM CDT
--- OUTSIDE RECORDS SUMMARY | 2025-05-11 09:58 | XMS_ITS | Patient Health Record ---
Author Organization [facility] Address [address] [place] [id number] Care Team Providers Care Barker Operator Name Role Phone Nicole Palacios Primary Care Provider [phone] Migration, Provider Unavailable Unavailable Results Component Value Reference Range Flag Notes COMPREHENSIVE METABOLIC PANE L Reviewed date:05/31/2024 08:37:08 PM Interpretation: Performing Lab:[place], [facility], [address], [place], [address] JamilahJuana Huerta MD Notes/Report: Fasting reference interval GLUCOSE 92 65-99 mg/dL N UREA NITROGEN (BUN) 31 7-25 mg/dL H CREATININE 1.97 0.60-1.00 mg/dL H EGFR 26 > OR = 60 mL/min/1.73m2 L BUN/CREATININE RATIO 16 6-22 (calc) N SODIUM 140 135-146 mmol/L N POTASSIUM 4.6 3.5-5.3 mmol/L N CHLORIDE 108 98-110 mmol/L N CARBON DIOXIDE 23 20-32 mmol/L N CALCIUM 9.3 8.6-10.4 mg/dL N PROTEIN, TOTAL 6.7 6.1-8.1 g/dL N ALBUMIN 4.0 3.6-5.1 g/dL N GLOBULIN 2.7 1.9-3.7 g/dL (calc) N ALBUMIN/GLOBULIN RATIO 1.5 1.0-2.5 (calc) N BILIRUBIN, TOTAL 0.8 0.2-1.2 mg/dL N ALKALINE PHOSPHATASE 91 37-153 U/L N AST 21 10-35 U/L N ALT 20 6-29 U/L N T3, FREE Reviewed date:06/01/2024 10:41:57 AM Interpretation: Performing Lab:[facility] N[facility]ie [facility], [address] [place], [address] Gelacio Huerta MD Notes/Report: T3, FREE 2.9 2.3-4.2 pg/mL N HEMOGLOBIN A1c Reviewed date:05/31/2024 08:36:39 PM Interpretation: Performing Lab:[facility], [address], [place], [address] Gelacio Huerta Notes/Report: For someone without known diabetes, a hemoglobin A1c value between 5.7% and 6.4% is consistent with prediabetes and should be confirmed with a follow-up test. For someone with known diabetes, a value <7% indicates that their diabetes is well controlled. A1c targets should be individualized based on duration of diabetes, age, comorbid conditions, and other considerations. This assay result is consistent with an increased risk of diabetes. Currently, no consensus exists regarding use of hemoglobin A1c for diagnosis of diabetes for children. This test was performed on the Cassandra carrei c503 platform. Effective 11/25/23, a change in test platforms from the Rajan Counter Sales Person to the Cassandra carrie c503 may have shifted HbA1c results compared to historical results. Based on laboratory validation testing conducted at [employer] the Cassandra platform relative to the Rajan platform had an average increase in HbA1c value of < or = 0.3%. This difference is within accepted variability established by the National Glycohemoglobin Standardization Program. Note that not all individuals will have had a shift in their results and direct comparisons between historical and current results for testing conducted on different platforms is not recommended. HEMOGLOBIN A1c 6.4 <5.7 % of total Hgb H CBC (INCLUDES DIFF/PLT) Reviewed date:05/31/2024 08:37:29 PM Interpretation: Performing Lab:[facility], [address] [place], [address] Gelacio Huerta MD Notes/Report: WHITE BLOOD CELL COUNT 6.1 3.8-10.8 Thousand/uL N RED BLOOD CELL COUNT 4.67 3.80-5.10 Million/uL N HEMOGLOBIN 14.0 11.7-15.5 g/dL N HEMATOCRIT 43.1 35.0-45.0 % N MCV 92.3 80.0-100.0 fL N MCH 30.0 27.0-33.0 pg N MCHC 32.5 32.0-36.0 g/dL N RDW 13.1 11.0-15.0 % N PLATELET COUNT 177 140-400 Thousand/uL N MPV 9.2 7.5-12.5 fL N ABSOLUTE NEUTROPHILS 3434 0590-0910 cells/uL N ABSOLUTE LYMPHOCYTES 6429 072-6044 cells/uL N ABSOLUTE MONOCYTES 720 200-950 cells/uL N ABSOLUTE EOSINOPHILS 140 15-500 cells/uL N ABSOLUTE BASOPHILS 31 0-200 cells/uL N NEUTROPHILS 56.3 N LYMPHOCYTES 29.1 N MONOCYTES 11.8 N EOSINOPHILS 2.3 N BASOPHILS 0.5 N MICROALBUMIN, RANDOM URINE ( W/CREATININE) Reviewed date:05/31/2024 08:37:15 PM Interpretation: Performing Lab:[facility] [place], [address] [place], [address] Gelacio Huerta MD Notes/Report: Reference Range: Reference Range Not established The ADA defines abnormalities in albumin excretion as follows: Albuminuria Category Result (mg/g creatinine) Normal to Mildly increased <30 Moderately increased 30-299 Severely increased > OR = 300 The ADA recommends that at least two of three specimens collected within a 3-6 month period be abnormal before considering a patient to be within a diagnostic category. CREATININE, RANDOM URINE 100 20-275 mg/dL N ALBUMIN, URINE 3.8 See Note: mg/dL N ALBUMIN/CREATININE RATIO, RANDOM URINE 38 <30 mg/g creat H LIPID PANEL Reviewed date:05/31/2024 08:36:51 PM Interpretation: Performing Lab:[facility] [place], [address] [place], [address] Gelacio Huerta MD Notes/Report: If a non-fasting specimen was collected, consider repeat triglyceride testing on a fasting specimen if clinically indicated. Rosa et al. J. of Clin. Lipidol. 2015;9:129-169. Reference range: <100 Desirable range <100 mg/dL for primary prevention; <70 mg/dL for patients with CHD or diabetic patients with > or = 2 CHD risk factors. LDL-C is now calculated using the Yusuf-Hinson calculation, which is a validated novel method providing better accuracy than the Friedewald equation in the estimation of LDL-C. Yusuf SS et al. ABDIRIZAK. 2013;310(19): 3283-9943 (http://education.Eventbrite.DealsAndYou/faq/ZDX546) For patients with diabetes plus 1 major ASCVD risk factor, treating to a non-HDL-C goal of <100 mg/dL (LDL-C of <70 mg/dL) is considered a therapeutic option. CHOLESTEROL, TOTAL 130 <200 mg/dL N HDL CHOLESTEROL 40 > OR = 50 mg/dL L TRIGLYCERIDES 235 <150 mg/dL H LDL-CHOLESTEROL 61 N CHOL/HDLC RATIO 3.3 <5.0 (calc) N NON HDL CHOLESTEROL 90 <130 mg/dL (calc) N T4, FREE Reviewed date:05/31/2024 08:37:35 PM Interpretation: Performing Lab:[place] [facility], [address] [facility], [place], [address] Gelacio Huerta MD Notes/Report: T4, FREE 1.1 0.8-1.8 ng/dL N TSH Reviewed date:05/31/2024 08:40:29 PM Interpretation: Performing Lab:[facility], [address] [address] [facility], [place], [address] Gelacio Huerta MD Notes/Report: TSH 1.35 0.40-4.50 mIU/L N TESTOSTERONE, FREE (DIALYSIS ) AND TOTAL,MS Reviewed date:05/31/2024 07:58:39 PM Interpretation: Performing Lab:[facility], [facility], [address] [place] [address], [address], [place], [address] Gray Uribe MD,PhD Notes/Report: For additional information, please refer to https://education.Sparkfly.DealsAndYou/faq/WOB913 (This link is being provided for informational/educational purposes only.) (Note) This test was developed and its analytical performance characteristics have been determined by [employer]. It has not been cleared or approved by the FDA. This assay has been validated pursuant to the CLIA regulations and is used for clinical purposes. (Note) This test was developed and its analytical performance characteristics have been determined by [employer]. It has not been cleared or approved by the FDA. This assay has been validated pursuant to the CLIA regulations and is used for clinical purposes. [facility] [address] [address],[address] [employer] [id number] Gray Uribe MD, PhD TESTOSTERONE, TOTAL, MS 223 2-45 ng/dL H TESTOSTERONE, FREE 35.3 0.2-3.7 pg/mL H .COMPREHENSIVE METABOLIC RIBERA (612[address]) [facility] Reviewed date:02/20/2025 10:15:21 AM Interpretation: Performing Lab:, [facility] [facility] Gelacio Huerta Notes/Report: FASTING:YES FASTING: YES GLUCOSE 79 65-99 mg/dL N Fasting reference interval UREA NITROGEN (BUN) 32 7-25 mg/dL H CREATININE 1.80 0.70-1.28 mg/dL H EGFR 39 > OR = 60 mL/min/1.73m2 L BUN/CREATININE RATIO 18 6-22 (calc) N SODIUM 137 135-146 mmol/L N POTASSIUM 4.4 3.5-5.3 mmol/L N CHLORIDE 105 98-110 mmol/L N CARBON DIOXIDE 24 20-32 mmol/L N CALCIUM 9.6 8.6-10.3 mg/dL N PROTEIN, TOTAL 7.1 6.1-8.1 g/dL N ALBUMIN 4.4 3.6-5.1 g/dL N GLOBULIN 2.7 1.9-3.7 g/dL (calc) N ALBUMIN/GLOBULIN RATIO 1.6 1.0-2.5 (calc) N BILIRUBIN, TOTAL 1.0 0.2-1.2 mg/dL N ALKALINE PHOSPHATASE 90 35-144 U/L N AST 22 10-35 U/L N ALT 19 9-46 U/L N .ALBUMIN, RANDOM URINE W/CRE ATININE (6517) Reviewed date:02/20/2025 10:15:21 AM Interpretation: Performing Lab:[facility], [employer] [facility], [place] Gelacio Huerta MD Notes/Report: FASTING:YES FASTING: YES CREATININE, RANDOM URINE 185 20-320 mg/dL N ALBUMIN, URINE 17.5 See Note: mg/dL N Reference Range: Not established Reference Range ALBUMIN/CREATININE RATIO, RANDOM URINE 95 <30 mg/g creat H Severely increased > OR = 300 The ADA recommends that at least two of three within a diagnostic category. abnormal before considering a patient to be The ADA defines abnormalities in albumin excretion as follows: Albuminuria Category Result (mg/g creatinine) specimens collected within a 3-6 month period be Moderately increased 30-299 Normal to Mildly increased <30 .CBC (INCLUDES DIFF/PLT) (63 99) Reviewed date:02/19/2025 03:24:27 PM Interpretation: Performing Lab:[place] [facility] [place] [address] [address] Wi[place]mCJ[address] [facility] Notes/Report: FASTING:YES FASTING: YES WHITE BLOOD CELL COUNT 7.1 3.8-10.8 Thousand/uL N RED BLOOD CELL COUNT 4.80 4.20-5.80 Million/uL N HEMOGLOBIN 14.6 13.2-17.1 g/dL N HEMATOCRIT 45.2 38.5-50.0 % N MCV 94.2 80.0-100.0 fL N MCH 30.4 27.0-33.0 pg N MCHC 32.3 32.0-36.0 g/dL N red cell parameters and the patient's clinical condition. interpreted with caution in correlation with other not clinically significant; however, it should be value (in the range of 30 to 32 g/dL) is most likely For adults, a slight decrease in the calculated MCHC RDW 12.9 11.0-15.0 % N PLATELET COUNT 184 140-400 Thousand/uL N MPV 9.5 7.5-12.5 fL N ABSOLUTE NEUTROPHILS 3855 3574-5410 cells/uL N ABSOLUTE LYMPHOCYTES 2350 850-3900 cells/uL N ABSOLUTE MONOCYTES 788 200-950 cells/uL N ABSOLUTE EOSINOPHILS 78 15-500 cells/uL N ABSOLUTE BASOPHILS 28 0-200 cells/uL N NEUTROPHILS 54.3 N LYMPHOCYTES 33.1 N MONOCYTES 11.1 N EOSINOPHILS 1.1 N BASOPHILS 0.4 N .HEMOGLOBIN A1c (496) Reviewed date:02/20/2025 10:15:22 AM Interpretation: Performing Lab:[facility] [place] [address] [address] [place] Gelacio Huerta Notes/Report: FASTING:YES FASTING: YES HEMOGLOBIN A1c 6.6 <5.7 % of total Hgb H greater than or equal to 7% indicates suboptimal diabetes and this should be confirmed with a follow-up value of 6.5% or greater indicates that they may have other considerations. duration of diabetes, age, comorbid conditions, and Currently, no consensus exists regarding use of control. A1c targets should be individualized based on hemoglobin A1c for diagnosis of diabetes for children. For someone without known diabetes, a hemoglobin A1c test. For someone with known diabetes, a value <7% indicates that their diabetes is well controlled and a value T4, FREE (866) Reviewed date:02/20/2025 10:15:22 AM Interpretation: Performing Lab:[facility] [id number] [place] [address] Gelacio Huerta Notes/Report: FASTING:YES FASTING: YES T4, FREE 1.3 0.8-1.8 ng/dL N TSH (899) Reviewed date:02/20/2025 10:15:22 AM Interpretation: Performing Lab:[facility] [id number] [place] [address] JamilahLorenzo Tita Huerta Notes/Report: FASTING:YES FASTING: YES TSH 1.47 0.40-4.50 mIU/L N T3, FREE (39[address]) Reviewed date:02/20/2025 10:15:22 AM Interpretation: Performing Lab:[facility] [employer] [id number] [facility], Zrtt[place]UU[address] Gelacio Huerta MD Notes/Report: FASTING:YES FASTING: YES T3, FREE 2.9 2.3-4.2 pg/mL N .LIPID PANEL, STANDARD (7600 ) Reviewed date:02/20/2025 10:15:21 AM Interpretation: Performing Lab:[facility] [id number] [place] [address] Gelacio Huerta Notes/Report: FASTING:YES FASTING: YES CHOLESTEROL, TOTAL 114 <200 mg/dL N HDL CHOLESTEROL 49 > OR = 40 mg/dL N TRIGLYCERIDES 155 <150 mg/dL H LDL-CHOLESTEROL 42 N with > or = 2 CHD risk factors. calculation, which is a validated novel method providing LDL-C is now calculated using the [facility] Yusuf HERNANDEZ et al. ABDIRIZAK. 2013;310(19): 4165-8884 <70 mg/dL for patients with CHD or diabetic patients estimation of LDL-C. Desirable range <100 mg/dL for primary prevention; Reference range: <100 better accuracy than the Friedewald equation in the (http://[employer].Sidewayz Pizza/faq/PKY834) CHOL/HDLC RATIO 2.3 <5.0 (calc) N NON HDL CHOLESTEROL 65 <130 mg/dL (calc) N For patients with diabetes plus 1 major ASCVD risk (LDL-C of <70 mg/dL) is considered a therapeutic option. factor, treating to a non-HDL-C goal of <100 mg/dL Reason For Referral No Information Medications Medication SIG (Take, Route, Frequency, Duration) Notes Start Date End Date Status Ozempic (0.25 or 0.5 MG/DOSE) 2 MG/3ML Solution Pen-injector inject 0.5 mg subcutaneously once a week; Duration: 90 days 05/26/2024 Active amLODIPine Besylate 2.5 MG Tablet 1 tablet Orally Once a day Active Losartan Potassium 100 MG Tablet 1 tablet Orally Once a day; Duration: 90 days Active Tresiba FlexTouch 200 UNIT/ML Solution Pen-injector inject 26 units Subcutaneous daily; Duration: 90 days 26 units at bedtime Active Farxiga 10 MG Tablet 1 tablet Orally Onc e a day Active Atorvastatin Calcium 10 MG Tablet 1 tablet Orally Once a day; Duration: 90 days Active Problems Problem Type SNOMED Code ICD Code Onset Dates Problem Status W/U Status Risk Notes Problem Multiple myeloma in remission (63224831) 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) Active confirmed Problem Type 2 diabetes mellitus with hyperglycemia (E11.65) Active confirmed Problem Type II diabetes mellitus without complication (647271798) Type 2 diabetes mellitus without complications (E11.9) Active confirmed Problem Dyslipidemia (456243927) Dyslipidemia (E78.5) Active confirmed Vital Signs Heart Rate 56 /min 02/25/2025 Respiratory Rate 12 /min 05/26/2024 Oximetry 97 % 02/25/2025 Blood pressure diastolic 66 mm Hg 02/25/2025 Weight-kg 97.52 kg 02/25/2025 Height 72 in 02/25/2025 Blood pressure systolic 147 mm Hg 02/25/2025 Weight 215.0 lbs 02/25/2025 BMI 29.16 kg/m2 02/25/2025 Encounters Encounter Location Date Provider Diagnosis [facility] [place], [place] [id number] 07/25/2024 Provider Migration Type 2 diabetes mellitus with hyperglycemia E11.65 and Type 2 diabetes mellitus without complications E11.[address] Palacios [address] [place] [phone] 05/26/2024 Nicole Palacios Type 2 diabetes mellitus without complications E11.9 ; Hyperlipidemia, unspecified E78.5 and Multiple myeloma in remission C90.[address] Palacios [address] [place] [phone] 10/20/2024 Nicole Palacios Type 2 diabetes mellitus with hyperglycemia E11.65 ; Dietary counseling and surveillance Z71.3 ; Dyslipidemia E78.5 and Multiple myeloma in remission C90.[address] Palacios [address] [place] [phone] 02/25/2025 Nicole Palacios Type 2 diabetes mellitus without complications E11.9 ; Dyslipidemia E78.5 ; Multiple myeloma in remission C90.01 and Dietary counseling and surveillance Z71.[address] Palacios [address] [place] [phone] 05/26/2024 Nicole Palacios [facility] [address] [place] [phone] 07/17/2024 Nicole Palacios Type 2 diabetes mellitus with hyperglycemia E11.[address] [address] 09/07/2024 Nicole Palacios Type 2 diabetes mellitus with hyperglycemia E11.[address] [address] 10/29/[address] Palacios [address] [place] [phone] 12/25/2024 Nicole Palacios [facility] [address] [address] 12/31/2024 Nicole Palacios Assessments Encounter Date Diagnosis (ICD Code) Assessment Notes Treatment Notes Treatment Clinical Notes Section Notes 05/26/2024 Type 2 diabetes mellitus without complications (ICD-10 - E11.9) a1c of 6% per patient- continue ozempic 0.5 mg weekly along with farxiga as patient tolerating well. Denies any hypoglycemia and overall sugars under 130 mg/dL consistently per patient log. Discussed carb counting and how to read food labels. Recommended patient to utilize the diabetes[place].DealsAndYou from the ADA website to help with food preparation as this presents ideal carb content per meal and will make carb counting easier for patient. Recommended he/she incorporate natural insulin sensitizers such as pears, apples, cinnamon, ivan and sweet potatoes to help mobilize his/her endogenous insulin. Recommended up to 150 minutes of moderate level activity /exercise per week. 05/26/2024 Hyperlipidemia, unspecified (ICD9-CM - E78.5) Continue statin therapy. 07/17/2024 Type 2 diabetes mellitus with hyperglycemia (ICD-10 - E11.65) 07/25/2024 Type 2 diabetes mellitus with hyperglycemia (ICD-10 - E11.65) 07/25/2024 Type 2 diabetes mellitus without complications (ICD-10 - E11.9) 09/07/2024 Type 2 diabetes mellitus with hyperglycemia (ICD-10 - E11.65) 10/20/2024 Type 2 diabetes mellitus with hyperglycemia (ICD-10 - E11.65) 02/25/2025 Type 2 diabetes mellitus without complications (ICD-10 - E11.9) 02/25/2025 Dyslipidemia (ICD-10 - E78.5) 10/20/2024 Dietary counseling and surveillance (ICD-10 - Z71.3) Spent 15 minutes preventative counseling patient on dietary recommendations and changes in setting of hyperglycemia- need to restrict refined sugars and processed foods and incorporate up to 150 minutes of moderate level activity weekly. 05/26/2024 Multiple myeloma in remission (ICD-10 - C90.01) Follows oncology and taken off gleevec over 3 months ago and doing well off therapy. Per patient he is monitored by surgery and oncology - will email labwork to patient as I do not have any recent CMP/CBC to review. 10/20/2024 Dyslipidemia (ICD-10 - E78.5) 02/25/2025 Multiple myeloma in remission (ICD-10 - C90.01) 02/25/2025 Dietary counseling and surveillance (ICD-10 - Z71.3) Spent 15 minutes preventative counseling patient on dietary recommendations and changes in setting of hyperglycemia- need to restrict refined sugars and processed foods and incorporate up to 150 minutes of moderate level activity weekly. 10/20/2024 Multiple myeloma in remission (ICD-10 - C90.01) 05/26/2024 Other Spent 25 minutes preparing to see the patient (ex review of tests/chart), obtaining and / or reviewing separately obtained history, performing a medically appropriate examination and/or evaluation, counseling and educating the patient/family/caregive r, ordering medications, tests, or procedures, referring and communicating with other health group care worker, documenting clinical information in the electronic or other health record, independently interpreting results and communicating results to the patient/family/caregive r and care coordinating patient plan. Patient alert [...] were discussed and all questions were answered. 10/20/2024 Other Type 2 Diabetes MellitusPatient's glycemic control is well-managed with current regimen. A1C has slightly increased from 6% in December to 6.3% currently, but remains within target range. Fasting blood glucose levels are 80-118 mg/dL. Patient is currently on Tresiba 26 units at bedtime and Farxiga 10 mg daily. Ozempic was previously part of the regimen but has become cost-prohibitive at $700/month. Patient reports no weight loss with Ozempic. No symptoms of hypoglycemia reported; patient experiences itching with low blood sugar and self-corrects by eating.- Continue Tresiba 26 units at bedtime- Continue Farxiga 10 mg daily- Provided samples of ozempic x 2 months and patient assistance form for patient to complete as ozempic just approved for CKD management and this is best option for patient chcf. - Explore patient assistance program for Ozempic through [employer]- Consider alternative GLP-1 RA (Mounjaro) if patient assistance not feasible- Maintain current blood glucose monitoring via finger stick method- Follow up with Dayami for assistance with patient assistance program application Chronic Kidney DiseasePatient's kidney function is reported as stable. Recent lab results indicate good kidney function. Patient is currently on Farxiga, which provides renoprotective benefits. The previously used Ozempic also offered kidney protection. - Continue Farxiga 10 mg daily for renoprotection- Monitor kidney function with regular lab tests- Follow up with chainer (Dr. Kaminski) as scheduled HypertensionPatient is currently managed on Amlodipine 2.5 mg daily. No reported issues or concerns with blood pressure control.- Continue Amlodipine 2.5 mg daily History of Hematological ConditionPatient previously treated with Gleevec and infusion therapy under Dr. Marr's care. Infusions have been discontinued after multiple clear MRIs. Recent MRI on Shanita showed no problems. Another MRI is scheduled for November.- Follow up with windows server support technician as scheduled- Proceed with planned MRI in November- If November MRI is clear, consider annual MRI follow-ups Diabetic NeuropathyPatient reports using a foot massager nightly for 15-30 minutes, which provides relief. Reports difficulty walking on rocks but denies numbness. No other significant neuropathic symptoms reported.- Continue nightly foot massage regimen- Monitor for progression of neuropathic symptoms HyperlipidemiaRecent cholesterol levels reported to be within normal range. No specific concerns noted.- Continue current management- Monitor lipid levels with regular lab tests Spent 25 minutes preparing to see the patient (ex review of tests/chart), obtaining and / or reviewing separately obtained history, performing a medically appropriate examination and/or evaluation, counseling and educating the patient/family/caregive r, ordering medications, tests, or procedures, referring and communicating with other health group care worker, documenting clinical information in the electronic or other health record, independently interpreting results and communicating results to the patient/family/caregive r and care coordinating patient plan. Patient alert and oriented x 4 and aware of discussion noted above and in agreeance to plan in management of well controlled type 2 DM, dyslipidemia, hypertension. 02/25/2025 Other Assessment and Plan: 1. Diabetes Mellitus Type 2- A1C increased from 6.0 to 6.6, indicating suboptimal glycemic control- Blood sugar readings range from 70s to 100-89- Patient reports itchiness when blood sugars are low but denies shakiness- Current insulin dosage is 26 units- Discontinued Ozempic due to cost concerns- Continues to take Farxiga regularly- Triglycerides are elevated at 155Plan:- Continue insulin at 26 units (route and frequency not specified)- Continue Farxiga (dose and frequency not specified)- Explore patient assistance programs for Ozempic- Monitor blood glucose levels and A1C- Follow up on Ozempic cost assistance 2. Chronic Kidney Disease- History of chronic kidney condition- Current kidney function reported as stable- Calcium levels within normal limitsPlan:- Continue current management (specific interventions not mentioned)- Monitor kidney function regularly 3. Multiple Myeloma in Remission- Currently in remission- No medications required at this time- Undergoes MRI every 6 months for post-surgery monitoring- Good results reportedPlan:- Continue regular MRI scans every 6 months for post-surgery monitoring- No current medications required for multiple myeloma Spent 25 minutes preparing to see the patient (ex review of tests/chart), obtaining and / or reviewing separately obtained history, performing a medically appropriate examination and/or evaluation, counseling and educating the patient/family/caregive r, ordering medications, tests, or procedures, referring and communicating with other health group care worker, documenting clinical information in the electronic or other health record, independently interpreting results and communicating results to the patient/family/caregive r and care coordinating patient plan. Patient alert and oriented x 4 and aware of discussion noted above and in agreeance to plan in management of overall controlled type 2 DM, dyslipidemia/controlled , stable CKD secondary to MM/in remission. Plan Of Treatment Next Appt Details Provider Name:Nicole Palacios, 10:00:00 AM, [address] [place], [address], Insurance Providers Payer Name Payer Address Payer Phone Subscriber Number Group Number Insured Name Patient Relationship to Insured Coverage Start Date Coverage End Date WPS Medicare part B [address] [address] [place] [address] [id number] MESSI WALLACE Self - patient is the insured [facility] [address] [address] [place] [address] [id number] MESSI WALLACE Self - patient is the insured Medical (General) History Medical History History ICD Code type 2 DM dyslipidemia multiple myeloma in remission hypertension
--- OUTSIDE RECORDS SUMMARY | 2025-05-11 09:59 | XMS_ITS ---
Author Organization [facility] Address [address] [place] [address] Phone Care Team Providers Care Barber Shop Operator Name Role Phone Rosa Chávez MD Primary Care Provider + Active Problems Problem Noted Date Diagnosed Date Type 2 diabetes mellitus, wi th long-term current use of insulin 03/15/2023 Benign hypertension 03/15/2023 CKD (chronic kidney disease) 03/15/2023 Other immunodeficiencies wit h predominantly antibody defects 08/16/2020 Metastatic carcinoid tumor 08/16/2020 Monoclonal (M) protein disease, multiple 'M' pro tein 08/31/2019 Broken wrist Overview (08/31/2019): Left Arm Current Treatment and Therapy Plans No current plan information found. Past Treatment and Therapy Plans No past plan information found. Lifetime Dose Tracking * Chemical Lifetime Dose Automatic Entry Manual Entr y Effective Dose 7.47 mSv 7.47 mSv 0 mSv Total DLP 681.78 DLP 681.78 DLP 0 DLP CTDIvol Max 11.17 mGy 11.17 mGy 0 mGy
--- OUTSIDE RECORDS SUMMARY | 2025-05-11 09:59 | XMS_ITS | Encounter Summary ---
Author Organization [facility] Address [address] [place] [address] Care Team Providers Care Well Site Drilling Engineer Name Role Phone Rosa Chávez MD Primary Care Provider + Encounter Details Date Type Department Care Team (Late st Contact Info) Description 07/18/1998 Outpatient Historical HIS LAB,NON-PATIENT Natalya Brown MD Social History Tobacco Use Types Packs/Day Years Used Date Smoking Tobacco: Never Assessed Sex and Gender Information Value Date Recorded Sex Assigned at Not on file Legal Sex Male 3:07 AM PROPERTY CONDITION ASSESSOR Gender Identity Not on file Sexual Orientation Not on file documented as of this encounter Plan of Treatment Upcoming Encounters Date Type Department Care Team (Late Contact Info) Description 07/19/2025 10:00 AM PROPERTY CONDITION ASSESSOR Appointment [facility] Imaging Services [facility] [address] [place] [address] Ros Sapp PA-C [id number] [place] [address] [place] [address] 07/20/2025 9:30 AM PROPERTY CONDITION ASSESSOR Office Visit [facility] Surgical Specialists [facility] [address] [facility] [address] [place] [address] Ros Sapp PA-C [address] [facility] [address] [place] [address] 07/27/2025 11:15 AM PROPERTY CONDITION ASSESSOR Office Visit [facility] Oncology and Hematology - [place] [address] [facility] [address] [place] [address] Blayne Marr MD [address] [facility] [address] [place] [address] documented as of this encounter Visit Diagnoses Not on filedocumented in this encounter Care Teams Well Site Drilling Engineer Relationship Specialty Start Date End Date Rosa Chávez MD [address] [place] [address] [place] [phone] PCP - General Family Practice 05/04/25 documented as of this encounter
--- OUTSIDE RECORDS SUMMARY | 2025-05-11 09:59 | XMS_ITS | Encounter Summary ---
Author Organization [facility] Address [address] [place] [address] Care Team Providers Care Flaker Operator Name Role Phone Rosa Chávez MD [...] on file Legal Sex Male 3:07 AM BUSINESS PROCESS ARCHITECT Gender Identity Not on file Sexual Orientation Not on file documented as of this encounter Plan of Treatment Upcoming Encounters Date Type Department Care Team (Late st Contact Info) Description 07/19/2025 10:00 AM BUSINESS PROCESS ARCHITECT Appointment [facility] Imaging Services [facility] [address] [place] [address] Ros Sapp PA-C [id number] [place] [address] 07/20/2025 9:30 AM BUSINESS PROCESS ARCHITECT Office Visit [facility] Surgical Specialists Zeus [facility] [address] [facility] [address] [place] [address] Ros Sapp PA-C [address] [facility] [address] [place] [address] 07/27/2025 11:15 AM BUSINESS PROCESS ARCHITECT Office Visit [facility] Oncology and Hematology [facility] [address] [facility] [address] [place] [address] Blayne Marr MD [address] [facility] [address] [place] [address] documented as of this encounter Visit Diagnoses Not on filedocumented in this encounter Care Teams Flaker Operator Relationship Specialty Start Date End Date Rosa Chávez MD [address] [place] [address] [place] [address] PCP - General Family Practice 05/04/25 documented as of this encounter
--- OUTSIDE RECORDS SUMMARY | 2025-05-11 09:59 | XMS_ITS | Encounter Summary ---
Author Organization [facility] Address [address] [place] [address] Care Team Providers Care Security Installation Sales Technician Name Role Phone Rosa Chávez MD Primary Care Provider + Encounter Details Date Type Department Care Team (Late st Contact Info) Description 06/26/2000 Outpatient Historical HIS [facility] MD Yifan GARCIA, Zeus Sanchez MD [address] [place] [address] Social History Tobacco Use Types Packs/Day Years Used Date Smoking Tobacco: Never Assessed Sex and Gender Information Value Date Recorded Sex Assigned at Not on file Legal Sex Male 3:07 AM TRACK LAYER Gender Identity Not on file Sexual Orientation Not on file documented as of this encounter Plan of Treatment Upcoming Encounters Date Type Department Care Team (Late st Contact Info) Description 07/19/2025 10:00 AM TRACK LAYER Appointment [facility] Imaging Services [facility] [address] [place] [address] Ros Sapp PA-C [address] [address] 07/20/2025 9:30 AM TRACK LAYER Office Visit [facility] Surgical Specialists Zeus Ibrahim [facility] [address] [facility] [address] [place] [address] Ros Sapp PA-C [address] [facility] [address] [place] [address] 07/27/2025 11:15 AM TRACK LAYER Office Visit [facility] Oncology and Hematology [facility] [address] [facility] [address] [place] [address] Blayne Marr MD [address] [facility] [address] [place] [address] documented as of this encounter Visit Diagnoses Not on filedocumented in this encounter Care Teams Security Installation Sales Technician Relationship Specialty Start Date End Date Rosa Chávez MD [address] [place] [address] [place] [address] PCP - General Family Practice 05/04/25 documented as of this encounter
--- OUTSIDE RECORDS SUMMARY | 2025-05-11 09:59 | XMS_ITS | Patient Health Record ---
Author Organization [facility] Address [address] [address] Care Team Providers Care Zipper Setter Name Role Phone Nicole Palacios Primary Care Provider Migration, Provider Unavailable Unavailable Results Component Value Reference Range Notes COMPREHENSIVE METABOLIC PANE L Reviewed date:05/31/2024 08:37:08 PM Interpretation: Performing Lab:[facility], [address] [place], [address] Gelacio Huerta MD Notes/Report: T3, FREE Reviewed date:06/01/2024 10:41:57 AM Interpretation: Performing Lab:[facility], [address] [place], [address] Gelacio Huerta MD Notes/Report: HEMOGLOBIN A1c Reviewed date:05/31/2024 08:36:39 PM Interpretation: Performing [facility], [address], [place], [address] Gelacio Huerta Notes/Report: CBC (INCLUDES DIFF/PLT) Reviewed date:05/31/2024 08:37:29 PM Interpretation: Performing Lab:[facility], [address] [place], [address] Gelacio Huerta MD Notes/Report: MICROALBUMIN, RANDOM URINE ( W/CREATININE) Reviewed date:05/31/2024 08:37:15 PM Interpretation: Performing Lab:[facility], [address] [place], [address] Gelacio Huerta MD Notes/Report: LIPID PANEL Reviewed date:05/31/2024 08:36:51 PM Interpretation: Performing Lab:[facility], [facility] [place], [address] [place], [address] Gelacio Huerta MD Notes/Report: T4, FREE Reviewed date:05/31/2024 08:37:35 PM Interpretation: Performing Lab:[facility], [facility] [place], [address] [place], [address] Gelacio Huerta MD Notes/Report: TSH Reviewed date:05/31/2024 08:40:29 PM Interpretation: Performing Lab:[facility], [facility] [place], [address] [place], [address] Gelacio Huerta MD Notes/Report: TESTOSTERONE, FREE (DIALYSIS ) AND TOTAL,MS Reviewed date:05/31/2024 07:58:39 PM Interpretation: Performing Lab:[facility], [address] [place] [address], [address], [place], [address] Gray Uribe MD,PhD Notes/Report: TESTOSTERONE, TOTAL, MS 223 2-45 ng/dL For additional information, please refer to https://education.V2contact.[place]/faq/DZS595 (This link is being provided for informational/educational purposes only.) (Note) This test was developed and its analytical performance characteristics have been determined by [facility]. It has not been cleared or approved by the FDA. This assay has been validated pursuant to the CLIA regulations and is used for clinical purposes. TESTOSTERONE, FREE 35.3 0.2-3.7 pg/mL (Note) This test was developed and its analytical performance characteristics have been determined by [facility]. It has not been cleared or approved by the FDA. This assay has been validated pursuant to the CLIA regulations and is used for clinical purposes. [facility] [address] [address],[address] [facility] [address] Gray Uribe MD, PhD COMPREHENSIVE METABOLIC PANE L Reviewed date:10/10/2024 05:36:43 PM Interpretation: Performing Lab:[facility], [address], [place], [address] Gelacio Huerta MD Notes/Report: FASTING:YES AN UPDATE OR CORRECTION HAS BEEN MADE TO SEX FASTING: YES HEMOGLOBIN A1c Reviewed date:10/10/2024 05:36:43 PM Interpretation: Performing Lab[facility], [address], [place], [address] Gelacio Huerta Notes/Report: FASTING:YES AN UPDATE OR CORRECTION HAS BEEN MADE TO SEX FASTING: YES CBC (INCLUDES DIFF/PLT) Reviewed date:10/10/2024 05:36:43 PM Interpretation: Performing Lab:[facility], [address], [place], [address] Gelacio Huerta MD Notes/Report: FASTING:YES AN UPDATE OR CORRECTION HAS BEEN MADE TO SEX FASTING: YES MICROALBUMIN, RANDOM URINE ( W/CREATININE) Reviewed date:10/10/2024 05:36:43 PM Interpretation: Performing Lab:[facility], [address], [place], [address] Gelacio Huerta MD Notes/Report: FASTING:YES AN UPDATE OR CORRECTION HAS BEEN MADE TO SEX FASTING: YES LIPID PANEL Reviewed date:10/10/2024 05:36:43 PM Interpretation: Performing Lab:[facility], [address], [place], [address] Gelacio Huerta MD Notes/Report: FASTING:YES AN UPDATE OR CORRECTION HAS BEEN MADE TO SEX FASTING: YES T4, FREE Reviewed date:10/10/2024 05:36:43 PM Interpretation: Performing Lab:[facility], [address], [place], [address] Gelacio Huerta MD Notes/Report: FASTING:YES AN UPDATE OR CORRECTION HAS BEEN MADE TO SEX FASTING: YES TSH Reviewed date:10/10/2024 05:36:43 PM Interpretation: Performing Lab:[facility], [address], [place], [address] Gelacio Huerta MD Notes/Report: FASTING:YES AN UPDATE [...] Hyperglycemia due to type 2 diabetes mellitus (646651171197386) Type 2 diabetes mellitus with hyperglycemia (E11.65) Active confirmed Problem Hyperlipidemia (70779323) Hyperlipidemia, unspecified (E78.5) Active confirmed Problem Type II diabetes mellitus without complication (827251615) Type 2 diabetes mellitus without complications (E11.9) Active confirmed Problem Multiple myeloma in remission (17120899) 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) Active confirmed Vital Signs Heart Rate 62 /min 05/26/2024 Respiratory Rate 12 /min 05/26/2024 Blood pressure diastolic 82 mm Hg 05/26/2024 Height 72 in 05/26/2024 Blood pressure systolic 150 mm Hg 05/26/2024 Weight 220 lbs 05/26/2024 BMI 29.83 kg/m2 05/26/2024 Encounters Encounter Location Date Provider Diagnosis [facility], [facility] - Nicole Palacios [address] [place] [address] 10/20/2024 Nicole Andrews [facility] [address] [address] 07/25/2024 Provider Migration Type 2 diabetes mellitus with hyperglycemia E11.65 and Type 2 diabetes mellitus without complications E11.9 [facility], [facility] - Nicole Palacios [address] [place] [address] 05/26/2024 Nicole Palacios [facility] [employer] [facility] [address] [place] [address] 07/17/2024 Nicole Palacios Type 2 diabetes mellitus with hyperglycemia E11.65 [facility] [address] [place] [address] 09/07/2024 Nicole Palacios Type 2 diabetes mellitus with hyperglycemia E11.[address] [facility], [facility] - Nicole Palacios [address] [place] [address] 05/26/2024 Nicole Palacios Type 2 diabetes mellitus [...] food labels. Recommended patient to utilize the diabetesfoodskedge.meb.co m from the ADA website to help [...] procedures, referring and communicating with other health rn progressive care, documenting clinical information in the electronic or [...] Date Coverage End Date Medicare [address] [address] [place] [address] [id number] MESSI WALLACE Self - patient is the insured [facility] [address] [address] [place] [address] [id number] MESSI WALLACE Self - patient is the insured
--- OUTSIDE RECORDS SUMMARY | 2025-05-11 09:59 | XMS_ITS | Clinical Summary ---
Author Organization [facility] Address [address] [place] [address] Phone Care Team Providers Care Software Engineer Intern Name Role Phone Rosa Chávez MD Primary Care Provider + Allergies No known active allergies Medications fish [...] 20 mg vial ONCE A MONTH Active lidocaine (LIDODERM) 5 % Adhesive Patch, Medicated Apply 1 Patch to affected area every 24 hours. 30 Patch 1 5 Active methocarbamoL (ROBAXIN) 500 mg tablet Take 1 Tablet (500 mg) by mouth 4 times daily for 10 days. 40 Tablet 5 025 Active HYDROcodone-acet aminophen (NORCO) 5-325 mg tabletIndication s:Sciatica of left side Take 1 Tablet by mouth every 4 hours as needed for Pain. Max Daily Amount: 6 Tablets 20 Tablet 5 Active Active Problems Problem Noted Date Diagnosed Date Type 2 diabetes mellitus, wi th long-term current use of insulin 03/15/2023 Benign hypertension 03/15/2023 CKD (chronic kidney disease) 03/15/2023 Other immunodeficiencies wit h predominantly antibody defects 08/16/2020 Metastatic carcinoid tumor 08/16/2020 Monoclonal (M) protein disease, multiple 'M' pro tein 08/31/2019 Broken wrist Overview (08/31/2019): Left Arm Encounters Date Type Department Care Team Description 05/05/2025 External Device Data ST[facility] ABSTRACTION Provider, Abstract 05/04/2025 External Device Data [facility] ABSTRACTION Provider, Abstract 05/04/2025 External Device Data [facility] ABSTRACTION Provider, Abstract 05/03/2025 3:02 PM CDT - 05/03/2025 6:22 PM CDT Emergency [facility] Emergency Department [address] [place] [address] Daja Palacios MD Sciatica of left side (Primary Dx); Acute diarrhea Discharge Disposition: Home or Self Care 05/03/2025 Travel 04/27/2025 External Device Data STL ABSTRACTION Provider, Abstract 04/12/2025 11:15 AM CDT Office Visit [facility] Oncology and [facility] [address] [place] [address] Blayne Marr MD Metastatic carcinoid tumor (CMS/HCC) (Primary Dx) 04/01/2025 Orders Only [facility] Oncology and [facility] [address] [place] [address] Blayne Marr MD 03/24/2025 External Device Data [...] who hurts you emotionally and/or physically? No 05/03/2025 Food Insecurity Answer Date Recorded Social/Environmental Concerns No concerns Transportation Needs Answer Date Record ed Social/Environmental Concerns No concerns Housing Stability Answer Date Recorded Social/Environmental Concerns No concerns Utility Needs Answer Date Recorded Social/Environmental Concerns No concerns Sex and Gender Information Value Date Recorded Sex Assigned at Not on file Legal Sex Male 3:07 AM HEAD GREENSKEEPER Gender Identity Not on file Sexual Orientation Not on file Last Filed Vital Signs Vital Sign Reading Time Taken Comments Blood Pressure 173/97 05/03/2025 3:10 PM CDT Pulse 64 05/03/2025 5:25 PM CDT Temperature 36.6 C (97.8 F) 05/03/2025 10:53 AM CDT Respiratory Rate 21 05/03/2025 5:25 PM CDT Oxygen Saturation 100% 05/03/2025 5:25 PM CDT Inhaled Oxygen Concentration - - Weight 97.3 kg (214 lb 9.6 oz) 04/12/2025 10:57 AM CDT Height 182.9 cm (6') 01/12/2025 9:22 AM CDT Body Mass Index 29.1 01/12/2025 9:22 AM CDT Plan of Treatment Upcoming Encounters Date Type Department Care Team (Late st Contact Info) Description 07/19/2025 10:00 AM HEAD GREENSKEEPER Appointment [facility] Imaging Services [facility] [id number] [place], [place] [phone] Ros Sapp PA-C [address] [address] 07/20/2025 9:30 AM HEAD GREENSKEEPER Office Visit [facility] Surgical Specialists [facility] [address] [facility] [address] [place] [address] Ros Sapp PA-C [address] [address] 07/27/2025 11:15 AM HEAD GREENSKEEPER Office Visit [facility] Oncology and Hematology - [facility] [place] [phone] Blayne Marr MD [address] [facility] [address] [place] [address] Health Maintenance Due Date Last Done Comments DIABETES ANNUAL FOOT EXAM 1966 DIABETES MICROALBUMIN ANNUAL SCREEN 1966 LDL CHOLESTEROL ANNUAL 1966 ZOSTER VACCINE (1 of 2) 11/20/1967 DTAP/TDAP/TD VACCINES (3 - T d or Tdap) 09/09/2023 09/09/2013, 09/20/2010 RSV VACCINE (60+ or ) (1 - 1-dose 75+ series) 11/20/2023 INFLUENZA VACCINE (#1) 2025 , 07/25/2020, 06/30/2019, Additional history exists DIABETES HBA1C Q 6 MONTHS 08/22/20252024, 10/09/2024, 05/27/2024, Additional history exists DIABETES ANNUAL RETINAL EXAM 11/10/202512/2024, 07/21/2024, 03/30/2024, Additional history exists COLORECTAL SCREENING Discontinued 09/08/2020, 09/08/2020, 04/16/2016, Additional history exists Colorectal Cancer Screening Discontinued PNEUMOCOCCAL VACCINE 50+ YEARS Completed 0 01/15/2023, 09/07/2014, 07/21/2008 FIT-DNA Q 3 years Discontinued FIT/FOBT Q 1 year Discontinued Flex Sig/CT Colonography Q 5 years Discontinued Medical Devices Implanted Type Area Engineering Technician Parking Device Identifier Shelf Expiration Date Model / Serial / Lot Barrier Seprafilm 5x6in [id number] - [id number] Implanted:Qty : 2 on 03/15/2023 by Ming Ayala MD at [facility] Adhesion Barrier N/A: Abdomen [employer] 03/26/2025 [id number] / / [id number] - [id number] Implanted:Qty : 1 on 06/06/2009 at [facility] Left: Shoulder [employer] 11/07/2013 [id number] / [id number] / [id number] Description:Rotator Cuff Abdirizak ckanchor Clip Ligating Horizon Med Ti [id number] - Csc - [id number] Implanted:Qty : 1 on 03/15/2023 by Ming Ayala MD at [facility] N/A: Abdomen TELEFLEX- WECK CLOSURE SYS 10/23/2027 [id number] / / [id number] Clip Ligating Horizon Ti Sm 24 [id number] Rp - [id number] Implanted:Qty : 1 on 03/15/2023 by Ming Ayala MD at [facility] N/A: Abdomen TELEFLEX- WECK CLOSURE SYS 12/24/2027 [id number] / / [id number] Clip Ligating Horizon Lg Ti [id number] - Csc - [id number] Implanted:Qty : 1 on 03/15/2023 by Ming Ayala MD at [facility] N/A: Abdomen TELEFLEX- WECK CLOSURE SYS 12/05/2027 [id number] / / [id number] Clip Ligating Horizon Lg Ti [id number] - Csc - [id number] Implanted:Qty : 2 on 03/15/2023 by Ming Ayala MD at [facility] N/A: Abdomen TELEFLEX- WECK CLOSURE SYS 07/16/2027 [id number] / / [id number] Clip Ligating Horizon Lg Ti [id number] - Csc - [id number] Implanted:Qty : 1 on 03/15/2023 by Ming Ayala MD at [facility] N/A: Abdomen TELEFLEX- WECK CLOSURE SYS 06/18/2026 [id number] / / [id number] Hemostat Surg Snow 2x4in 2081 - [id number] Implanted:Qty : 3 on 03/15/2023 by Ming Ayala MD at [facility] N/A: Abdomen [employer] [id number] 10/09/20242081 / / [id number] Procedures Procedure Name Priority Date/Time Associated Diagnosis Comments EXTRA TUBE (URINE CONTAINER) Stat 05/03/2025 5:32 PM CDT EXTRA TUBE Stat 05/03/2025 5:32 PM CDT EXTRA TUBE (URINE BALLARD) Stat 05/03/2025 5:26 PM CDT URINALYSIS W/REFLEX MICROSCOPIC Stat 05/03/2025 5:[address] ABDOMEN PELVIS W CONTRAST Stat 05/03/2025 4:52 PM CDT EXTRA TUBE (LAV) Stat 05/03/2025 12:3 2 PM CDT EXTRA TUBE Stat 05/03/2025 12:32 PM CDT COMPREHENSIVE METABOLIC PANEL Stat 05/03/2025 11:48 AM CDT CBC WITH DIFFERENTIAL Stat 05/03/2025 11:48 AM CDT CHROMOGRANIN A Routine 03/29/2025 2:23 PM CDT COMPREHENSIVE METABOLIC PANEL Routine 03/29/2025 1:41 PM CDT SEROTONIN LEVEL Routine 03/29/2025 1:05 PM CDT COLONOSCOPY REPORT 09/08/2020 11 :11 AM HEAD GREENSKEEPER from Last 3 Months or Most Recently Relevant to Health Maintenance Results * EXTRA TUBE (URINE CONTAINER) (05/03/2025 5:32 PM CDT) Urine URINE SPECIMEN OBTAINED BY CLEAN CATCH PROCEDURE / Unknown Collection / Unknown 05/03/2025 5:32 PM CDT 05/03/2025 5:32 PM CDT Daja Palacios MD URINE ORDERABLES Final Result [facility] [employer] [facility]# [id number] [place] [address] * EXTRA TUBE (URINE BALLARD) (05/03/2025 5:26 PM CDT) Urine URINE SPECIMEN OBTAINED BY CLEAN CATCH PROCEDURE / Unknown Collection / Unknown 05/03/2025 5:26 PM CDT 05/03/2025 5:32 PM CDT Daja Palacios MD URINE ORDERABLES Final Result [facility] [employer] [facility]# [id number] [place] [address] * (ABNORMAL) URINALYSIS WITH REFLEX MICROSCOPIC (05/03/2025 5:26 PM CDT) COLOR UA Yellow Pale to Dark Yellow 05/03/2025 5:47 PM CDT [facility] CLARITY UA Clear Clear 05/03/2025 5:47 PM CDT [facility] SPECIFIC GRAVITY UA 1.021 1.003 - 1.035 05/03/2025 5:47 PM CDT [facility] PH UA 5.0 5.0 - 8.0 05/03/2025 5:47 PM CDT [facility] LEUKOCYTE ESTERASE UA Negative Negative 05/03/2025 5:47 PM CDT [facility] NITRITE UA Negative Negative 05/03/2025 5:47 PM CDT [facility] PROTEIN UA 2+(A) Negative 05/03/2025 5:47 PM CDT [facility] GLUCOSE UA 3+(A) Negative 05/03/2025 5:47 PM CDT [facility] KETONES UA Negative Negative 05/03/2025 5:47 PM CDT [facility] UROBILINOGEN UA Normal <2.0 mg/dL 5:47 PM CDT [facility] BILIRUBIN UA Negative Negative 05/03/2025 5:47 PM CDT [facility] BLOOD UA Negative Negative 05/03/2025 5:47 PM CDT [facility] Comment:Ascorbic acid may ca use false negative results for blood. A microscopic review was reflexed to rule out this interference. WBC UA 0-2 0 - 2 /hpf 05/03/2025 5:47 PM CDT [facility] RBC UA 3-5(A) 0 - 2 /hpf 05/03/2025 5:47 PM CDT [facility] BACTERIA UA Negative Negative /hpf 05/03/2025 5:47 PM CDT [facility] EPITHELIAL CELLS, URINE 0-5 0 - 5 /hpf 05/03/2025 5:47 PM CDT [facility] HYALINE CAST 6-10(A) None Seen, 0-2 /lpf 05/03/2025 5:47 PM CDT [facility] Ascorbic Acid UA Positive(A) Negative 025 5:47 PM CDT [facility] Urine URINE SPECIMEN OBTAINED BY CLEAN CATCH PROCEDURE / Unknown Collection / Unknown 05/03/2025 5:26 PM CDT 05/03/2025 5:32 PM CDT Daja Palacios MD URINE ORDERABLES Final Result [facility] CLIA# [id number] [place] [address] * CT ABDOMEN PELVIS W CONTRAST (05/03/2025 4:52 PM CDT) Anatomical Region Laterality Modality Abdomen Computed Tomogra phy 05/03/2025 4:53 PM CDT Impressions 05/03/2025 4:58 PM CDT IMPRESSION: 1. Fluid present throughout the colon correlate for history of diarrhea. 2. No obstruction. DICTATION LOCATION: Location 7 - [facility] Narrative 05/03/2025 4:[address] ABDOMEN AND PELVIS WITH IV CONTRAST DATE: 05/03/2025 4:52 PM HISTORY: Diverticulitis, complication suspected TECHNIQUE: Transaxial computed tomographic images of the abdomen and pelvis were obtained following the uneventful administration of IOPAMIDOL 76 % INTRAVENOUS SOLUTION (MULTI-DOSE BULK PACK) Given:80 mL ml Isovue 370 according to standard protocol. The examination was performed with the adjustment of mA according to the patient size and/or the use of Iterative Reconstruction Technique. FINDINGS: The lung bases are clear. The heart size is normal. There is mild steatosis of the liver. The gallbladder is absent. The pancreas spleen adrenals and bilateral kidneys are normal. There is increased fluid throughout the colon most consistent with probable history of diarrhea. No obstruction present. There is atherosclerosis of the aorta. No abdominal or pelvic adenopathy. The bladder is normal. There is mild degenerative change in lumbar spine with mild anterolisthesis of L4-L5. Procedure Note Royce Magana MD - 05/03/2025 CT ABDOMEN AND PELVIS WITH IV CONTRAST DATE: 05/03/2025 4:52 PM HISTORY: Diverticulitis, complication suspected TECHNIQUE: Transaxial computed tomographic images of the abdomen and pelvis were obtained following the uneventful administration of IOPAMIDOL 76 % INTRAVENOUS SOLUTION (MULTI-DOSE BULK PACK) Given:80 mL ml Isovue 370 according to standard protocol. The examination was performed with the adjustment of mA according to the patient size and/or the use of Iterative Reconstruction Technique. FINDINGS: The lung bases are clear. The heart size is normal. There is mild steatosis of the liver. The gallbladder is absent. The pancreas spleen adrenals and bilateral kidneys are normal. There is increased fluid throughout the colon most consistent with probable history of diarrhea. No obstruction present. There is atherosclerosis of the aorta. No abdominal or pelvic adenopathy. The bladder is normal. There is mild degenerative change in lumbar spine with mild anterolisthesis of L4-L5. IMPRESSION: 1. Fluid present throughout the colon correlate for history of diarrhea. 2. No obstruction. DICTATION LOCATION: Location [address] [place] [address] ORDERABLES Final Result * EXTRA TUBE (LAV) (05/03/2025 12:32 PM CDT) Blood Venipuncture / Unknown 05/03/2025 12:32 PM CDT 05/03/2025 12:32 PM CDT Earl Ballard MD HEMATOLOGY ORDERABLES Fi nal Result [facility] - [facility] CLIA# [id number] [address] [place], [place] [address] * (ABNORMAL) CBC WITH DIFFERENTIAL (05/03/2025 11:48 AM CDT) WBC 7.4 4.0 - 9.8 K/uL 05/03/2025 12:21 PM CDT [facility] RBC 5.12 4.50 - 5.40 M/uL 05/03/2025 12:21 PM CDT [facility] HEMOGLOBIN 15.5 13.6 - 16.5 g/dL 05/03/2025 12:21 PM CDT [facility] HEMATOCRIT 43.7 40.0 - 48.0 % 05/03/2025 12:21 PM CDT [facility] MCV 85.4 82.0 - 99.0 fL 05/03/2025 12:21 PM CDT [facility] MCH 30.3 27.2 - 32.6 pg 05/03/2025 12:21 PM CDT [facility] MCHC 35.5 31.5 - 35.5 g/dL 05/03/2025 12:21 PM CDT [facility] RDW 13.7 11.5 - 14.5 % 05/03/2025 12:21 PM CDT [facility] RDW-STDEV 42.5 37.1 - 48.7 fL 05/03/2025 12:21 PM CDT [facility] PLATELETS 189 140 - 350 K/uL 05/03/2025 12:21 PM CDT [facility] MPV 8.9(L) 9.3 - 12.4 fL 05/03/2025 12:21 PM CDT [facility] NEUTROPHILS 58 % 05/03/2025 12:21 PM CDT [facility] LYMPHOCYTES 26 % 05/03/2025 12:21 PM CDT [facility] MONOCYTES 11 % 05/03/2025 12:21 PM CDT [facility] EOSINOPHILS 4 % 05/03/2025 12:21 PM CDT [facility] BASOPHILS 0 % 05/03/2025 12:21 PM CDT [facility] IMMATURE GRANULOCYTES 0 % 05/03/2025 12:21 PM CDT [facility] NEUTROPHIL ABSOLUTE 4.34 1.90 - 7.00 K/uL 05/03/2025 12:21 PM CDT [facility] LYMPHOCYTE ABSOLUTE 1.95 0.70 - 4.50 K/uL 05/03/2025 12:21 PM CDT [facility] MONOCYTE ABSOLUTE 0.81 0.10 - 1.30 K/uL 05/03/2025 12:21 PM CDT [facility] EOSINOPHIL ABSOLUTE 0.30 0.00 - 0.70 K/uL 05/03/2025 12:21 PM CDT [facility] BASOPHILS ABSOLUTE 0.03 0.00 - 0.20 K/uL 05/03/2025 12:21 PM CDT [facility] IMMATURE GRANULOCYTES ABSOLUTE 0.01 0.00 - 0.03 K/uL 05/03/2025 12:21 PM CDT [facility] Blood Venipuncture / Unknown 05/03/2025 11:48 AM CDT 05/03/2025 12:12 PM CDT us Daja Palacios MD HEMATOLOGY ORDERABLES Final Resu lt [facility] CLIA# [id number] [address] [place] [address] * (ABNORMAL) COMPREHENSIVE METABOLIC PANEL (05/03/2025 11:48 AM CDT) Only the most recent of2 resultswithin the time period is included. SODIUM 142 136 - 145 mmol/L 05/03/2025 12:53 PM CDT [facility] POTASSIUM 4.0 3.4 - 5.1 mmol/L 05/03/2025 12:53 PM CDT [facility] CHLORIDE 110(H) 98 - 107 mmol/L 05/03/2025 12:53 PM CDT [facility] CO2 19(L) 22 - 29 mmol/L 05/03/2025 12:53 PM CDT [facility] CALCIUM 9.4 8.6 - 10.4 mg/dL 05/03/2025 12:53 PM CDT [facility] BUN 23(H) 6 - 20 mg/dL 05/03/2025 12:53 PM CDT [facility] CREATININE 1.67(H) 0.67 - 1.17 mg/dL 05/03/2025 12:53 PM T [facility] Comment:The GFR result is no t clinically significant on patients <18 or >70 years of age. GLUCOSE 125(H) 74 - 99 mg/dL 05/03/2025 12:53 PM T [facility] TOTAL PROTEIN 7.1 6.3 - 8.7 g/dL 05/03/2025 12:53 PM T [facility] ALBUMIN 4.2 3.5 - 5.2 g/dL 05/03/2025 12:53 PM T [facility] BILIRUBIN TOTAL 0.7 0.0 - 1.1 mg/dL 05/03/2025 12:53 PM T [facility] ALKALINE PHOSPHATASE 79 40 - 150 U/L 05/03/2025 12:53 PM T [facility] AST 40 0 - 41 U/L 05/03/2025 12:53 PM T [facility] ALT 46(H) 0 - 41 U/L 05/03/2025 12:53 PM T [facility] GFR 42 mL/min/1.7 3 sq meter 05/03/2025 12:53 PM T [facility] Comment:eGFR calculated with 2020 CKD-EPI equation. Vegetarian diet, extremely high or low muscle mass, and may affect results. Cystatin C with Glomerular Filtration Rate is a suitable alternative for these patients. ANION GAP 13 8 - 16 mmol/L 05/03/2025 12:53 PM T [facility] Blood Venipuncture / Unknown 05/03/2025 11:48 AM CDT 05/03/2025 12:24 PM CDT us Daja Palacios MD CHEMISTRY ORDERABLES Final Resul t [facility] CLIA# [id number] [address] [place] [address] * CHROMOGRANIN A (03/29/2025 2:23 PM CDT) Blood us Blayne Marr MD CHEMISTRY ORDERABLES Final Resu lt * SEROTONIN LEVEL (03/29/2025 1:05 PM CDT) Blood us Blayne Marr MD CHEMISTRY ORDERABLES Final Resu lt * COLONOSCOPY REPORT (09/08/2020 11:11 AM HEAD GREENSKEEPER) Narrative Procedure Note Noel Pathak MD - 09/08/2020 11:10 AM CST [facility] Endoscopy Patient Name: Manuel aMta Procedure Date: 09/08/2020 Date of : 1950 [...] for surveillance. Procedure Code(s): --- Professional --- 21835, Colonoscopy, flexible; with removal of tumor(s), polyp(s), or other lesion(s) by snare technique CPT copyright 2018 [employer]. All rights reserved. The codes documented in this report are preliminary and upon customer relationship specialist review may be revised to meet current compliance requirements. Noel Pathak MD 09/08/2020 11:10:17 AM This report has been signed electronically. Number of Addenda: [id number] [place] [address] Noel Pathak MD GI PROCEDURE ORDERABLES Final Result from Last 3 Months or Most Recently Relevant to [place] [address] MEDICARE PART A AND B [facility] MEDICARE PART A AND B [facility] SUPP RX [facility] [place] [address] Advance Directives For more information, please contact: [phone] Documents on File Type Date Recorded Patient Pharmacist Technician Expl anation Advance Directive Living Will 06/02/2009 [...] Comments 06/06/2009 8:32 AM 06/06/2009 12:40 PM Care Teams Software Engineer Intern Relationship Specialty Start Date End Date Rosa Chávez MD [address] [place] [address] [place] [address] PCP - General Family Practice 05/04/25
--- OUTSIDE RECORDS SUMMARY | 2025-05-11 09:59 | XMS_ITS | Encounter Summary ---
Author Organization [facility] Address [address] [place] [address] Care Team Providers Care Bundle Collector Name Role Phone Rosa Chávez MD Primary [...] on file Legal Sex Male 3:07 AM ELECTRICAL MAINTENANCE WORKER Gender Identity Not on file Sexual Orientation Not on file documented as of this encounter Plan of Treatment Upcoming Encounters Date Type Department Care Team (Late st Contact Info) Description 07/19/2025 10:00 AM ELECTRICAL MAINTENANCE WORKER Appointment [facility] [address] [place] [address] Ros Sapp PA-C [address] [facility] [place] [address] [place] [address] 07/20/2025 9:30 AM ELECTRICAL MAINTENANCE WORKER Office Visit [facility] Zeus Ibrahim [facility] [address] [facility] [address] [place] [address] Ros Sapp PA-C [address] [facility] [address] [place] [address] 07/27/2025 11:15 AM ELECTRICAL MAINTENANCE WORKER Office Visit [facility] Oncology and Hematology [facility] [address] [facility] [address] [place] [address] Blayne Marr MD [address] [facility] [address] [place] [address] documented as of this encounter Visit Diagnoses Diagnosis Type II or unspecified type diabetes mellitus without mention of complication, not stated as uncontrolled- Primary documented in this encounter Care Teams Bundle Collector Relationship Specialty Start Date End Date Rosa Chávez MD [address] [place] [address] [place] [phone] PCP - General Family Practice 05/04/25 documented as of this encounter
--- OUTSIDE RECORDS SUMMARY | 2025-05-11 09:59 | XMS_ITS | Encounter Summary ---
Author Organization [facility] Address [address] [place] [address] Care Team Providers Care Custom Bookbinder Name Role Phone Rosa Chávez MD Primary Care Provider + Encounter Details Date Type Department Care Team (Late st Contact Info) Description 01/01/2000 Outpatient Historical [facility] Zeus Saha MD [address] [place] [id number] Social History Tobacco Use Types Packs/Day Years Used Date Smoking Tobacco: Never Assessed Sex and Gender Information Value Date Recorded Sex Assigned at Not on file Legal Sex Male 3:07 AM MAILROOM MANAGER Gender Identity Not on file Sexual Orientation Not on file documented as of this encounter Plan of Treatment Upcoming Encounters Date Type Department Care Team (Late Contact Info) Description 07/19/2025 10:00 AM MAILROOM MANAGER Appointment [facility] Imaging Services [address] [address] Ros Sapp PA-C [id number] [address] 07/20/2025 9:30 AM MAILROOM MANAGER Office Visit [facility] Surgical Specialists Zeus Ibrahim [facility] [id number] [place] [address] [address] [place] [address] Ros Sapp PA-C [id number] [facility] [address] [place] [address] 07/27/2025 11:15 AM MAILROOM MANAGER Office Visit [facility] Oncology and Hematology [facility] [address] [facility] [address] [place] [address] Blayne Marr MD 2227 [facility] [address] [place] [address] documented as of this encounter Visit Diagnoses Not on filedocumented in this encounter Care Teams Custom Bookbinder Relationship Specialty Start Date End Date Rosa Chávez MD [address] [place] [address] [place] [id number] PCP - General Family Practice 05/04/25 documented as of this encounter
--- OUTSIDE RECORDS SUMMARY | 2025-05-11 09:59 | XMS_ITS | Encounter Summary ---
Author Organization [facility] Address [address] [place] [address] Phone Care Team Providers Care Hr Generalist Name Role Phone Carline Lu NP Primary Care Provider [phone] Reason for Visit * Reason Comments Med Refill Encounter Details Date Type Department Care Team (Late st Contact Info) Description 07/30/2022 Refill [facility] Nephrology and Hypertension [address] [place] [address], [address] [place] [address] Luis Kaminski MD [address] [facility], [address] [place] [address] Social History Tobacco Use Types Packs/Day Years [...] on filedocumented in this encounter Care Teams Hr Generalist Relationship Specialty Start Date End Date Carline Lu NP [address] [place] [address] [facility] [place] [phone] PCP - General Internal Medicine 05/25/19 documented as of this encounter
--- OUTSIDE RECORDS SUMMARY | 2025-05-11 09:59 | XMS_ITS | Encounter Summary ---
Author Organization [facility] Address [address] [place] [address] Care Team Providers Care School Psychologist Name Role Phone Rosa Chávez MD Primary Care Provider + Encounter Details Date Type Department Care Team (Late st Contact Info) Description 04/24/2000 Outpatient Historical [facility] Yifan GARCIA, Zeus Sanchez MD [address] [place] [id number] Social History Tobacco Use Types Packs/Day Years Used Date Smoking Tobacco: Never Assessed Sex and Gender Information Value Date Recorded Sex Assigned at Not on file Legal Sex Male 3:07 AM TIGHT ROPE WALKER Gender Identity Not on file Sexual Orientation Not on file documented as of this encounter Plan of Treatment Upcoming Encounters Date Type Department Care Team (Late st Contact Info) Description 07/19/2025 10:00 AM TIGHT ROPE WALKER Appointment [facility] Imaging Services [facility] [address] [place] [address] Ros Sapp PA-C [id number] [address] 07/20/2025 9:30 AM TIGHT ROPE WALKER Office Visit [facility] Surgical Specialists Zeus Ibrahim [facility] [address] [facility] [address] [place] [address] Ros Sapp PA-C [address] [facility] [address] [place] [address] 07/27/2025 11:15 AM TIGHT ROPE WALKER Office Visit [facility] Oncology and Hematology [facility] 2227 [facility] [address] [place] [address] Blayne Marr MD 2227 [facility] [address] [place] [address] documented as of this encounter Visit Diagnoses Not on filedocumented in this encounter Care Teams School Psychologist Relationship Specialty Start Date End Date Rosa Chávez MD [address] [place] [address] [place] [phone] PCP - General Family Practice 05/04/25 documented as of this encounter
--- OUTSIDE RECORDS SUMMARY | 2025-05-11 09:59 | XMS_ITS | Encounter Summary ---
Author Organization [facility] Address [address] [place] [address] Phone Care Team Providers Care Groundskeeping Maintenance Name Role Phone Carline Lu NP Primary Care Provider [phone] Reason for Visit * Reason Comments Med Refill Encounter Details Date Type Department Care Team (Late st Contact Info) Description 04/16/2022 Refill [facility] Nephrology and Hypertension [address] [place] [address], [address] [place] [address] Luis Kaminski MD [address] [facility], [address] [place] [address] Social History Tobacco Use Types Packs/Day Years Used Date Smoking Tobacco: Never Smokeless Tobacco: Never Alcohol Use Standard Drinks/Week Comments No 0 (1 standard drink = 0.6 oz pur e alcohol) Sex and Gender Information Value Date Recorded Sex Assigned at Not on file Legal Sex Male 7:21 AM [facility] Gender Identity Not on file Sexual Orientation Not on file documented as of this encounter Plan of Treatment Not on file documented as of this encounter Visit Diagnoses Not on filedocumented in this encounter Care Teams Groundskeeping Maintenance Relationship Specialty Start Date End Date Carline Lu NP [facility] [place] [phone] PCP - General Internal Medicine 05/25/19 documented as of this encounter
--- OUTSIDE RECORDS SUMMARY | 2025-05-11 09:59 | XMS_ITS | Encounter Summary ---
Author Organization [facility] Address [address] [place] [address] Care Team Providers Care Factory Hand Name Role Phone Rosa Chávez MD Primary Care Provider + Encounter Details Date Type Department Care Team (Late st Contact Info) Description 02/21/2000 Outpatient Historical [facility] Zeus Saha MD [address] [place] [id number] Social History Tobacco Use Types Packs/Day Years Used Date Smoking Tobacco: Never Assessed Sex and Gender Information Value Date Recorded Sex Assigned at Not on file Legal Sex Male 3:07 AM HOME CARE LIAISON Gender Identity Not on file Sexual Orientation Not on file documented as of this encounter Plan of Treatment Upcoming Encounters Date Type Department Care Team (Late Contact Info) Description 07/19/2025 10:00 AM HOME CARE LIAISON Appointment [facility] Imaging Services [address] [address] Ros Sapp PA-C [id number] [address] 07/20/2025 9:30 AM HOME CARE LIAISON Office Visit [facility] Surgical Specialists Zeus Ibrahim [facility] [id number] [place] [address] [address] [place] [address] Ros Sapp PA-C [address] [facility] [address] [place] [address] 07/27/2025 11:15 AM HOME CARE LIAISON Office Visit [facility] Oncology and Hematology [facility] 2227 [facility] [address] [place] [address] Blayne Marr MD [address]227 [facility] [address] [place] [address] documented as of this encounter Visit Diagnoses Not on filedocumented in this encounter Care Teams Factory Hand Relationship Specialty Start Date End Date Rosa Chávez MD [address] [place] [address] [place] [phone] PCP - General Family Practice 05/04/25 documented as of this encounter
--- OUTSIDE RECORDS SUMMARY | 2025-05-11 09:59 | XMS_ITS | Clinical Summary ---
Author Organization [facility] Address [address] [place] [address] Phone Care Team Providers Care Generation Engineering Technologist Name Role Phone Carline Lu NP Primary Care Provider [phone] Allergies No known active allergies Medications hydroCHLOROthiaz [...] on file Legal Sex Male 7:21 AM [facility] Gender Identity Not on file Sexual Orientation Not on file Last Filed Vital Signs Vital Sign Reading Time Taken Comments Blood Pressure 136/80 10/14/2019 10:52 AM ASSOCIATE SCIENTIST Pulse 84 10/14/2019 10:52 AM ASSOCIATE SCIENTIST Temperature 36.4 C (97.5 F) 10/14/2019 10:52 AM ASSOCIATE SCIENTIST Respiratory Rate - - Oxygen Saturation - - Inhaled Oxygen Concentration - - Weight 105 kg (232 lb) 10/14/2019 10:52 AM ASSOCIATE SCIENTIST Height 182.9 cm (6') 10/14/2019 10:52 AM ASSOCIATE SCIENTIST Body Mass Index 31.46 10/14/2019 10:52 AM ASSOCIATE SCIENTIST Plan of Treatment Health Maintenance Due Date Last Done Comments Pneumococcal PPSV23/PCV13 65 + Years / Low and Medium Risk (3 of 3 - PCV20 or PCV21) 09/07/2019 09/07/2014, 2007 Influenza Vaccine (#1) 2025 06/29/2013, 2009 Insurance MEDICARE [employer] [facility] [place] [id number] Care Teams Generation Engineering Technologist Relationship Specialty Start Date End Date Carline Lu NP [facility] [place] [address] PCP - General Internal Medicine 05/25/19
[2025-05-11 10:06] LABS: Hematocrit 41.7 % (42.0-52.0); Hemoglobin 14.5 g/dL (14.0-18.0); Mean Corpuscular HGB Conc 34.8 g/dl (32-36); Mean Corpuscular Hemoglobin 30.5 pg (26-34); Mean Corpuscular Volume 87.6 fl (80-100); Platelet Count Result 217 k/mm3 (150-375); Red Blood Count 4.76 M/mm3 (4.6-6.20); White Blood Count 7.7 K/mm3 (4.5-10.0)
[2025-05-11 10:50] LABS: Albumin Level 4.3 g/dL (3.5-5.1); Anion Gap 8 mmol/L (4-12); Blood Urea Nitrogen 17 mg/dL (9-20); Calcium 9.5 mg/dL (8.4-10.2); Carbon Dioxide 23 mmol/L (22-30); Chloride 102 mmol/L (98-107); Estimated Glomerular Filt Rate 42; Glucose 91 mg/dL (65-110); Potassium 3.9 mmol/L (3.4-5.0); Sodium 133 mmol/L (137-145)
[2025-05-11 11:00] LABS: Parathyroid Intact 66.1 pg/mL (14.5-75.2)
[2025-05-11 11:09] LABS: Total Protein Urine Random 71 mg/dL; Ur Ttl Prot Creatinine Ratio 0.75 mg/mg (0-0.20)
== END 2025-05-11 09:39 | disposition home or self-care (01) ==
PROVIDERS: PCP Nurse Practitioner Adult Health; Visit Provider Internal Medicine Nephrology
DX: E11.22 Type 2 diabetes mellitus with diabetic chronic kidney disease (principal); N18.32 Chronic kidney disease, stage 3b
CPT/HCPCS: 36415; 80069; 82570; 83970; 84156; 85027